=== PATIENT | male | born 1935 | race Caucasian/White ===

== ENCOUNTER 2019-11-30 11:24 | Outpatient (REF) | payer MEDICARE, MEDICAID, SELFPAY | END 2019-11-30 11:25 | disposition home or self-care (01) | LOC: HO.HSH3W 11:24 | PROVIDERS: Visit Provider Internal Medicine | DX: Z20.828 Contact with and (suspected) exposure to other viral communicable diseases (principal) | CPT/HCPCS: 87635 ==

== ENCOUNTER 2019-12-19 07:25 | Outpatient (REF) | payer MEDICARE, SELFPAY | END 2019-12-19 07:26 | disposition home or self-care (01) | LOC: HO.HSH4W 07:25 | PROVIDERS: Visit Provider Internal Medicine | DX: I10 Essential (primary) hypertension (principal) | CPT/HCPCS: 82306 ==

== ENCOUNTER → 2020-05-12 13:01 | Outpatient (BNVA) | payer MEDICARE, SELFPAY | PROVIDERS: PCP Internal Medicine; Visit Provider Internal Medicine | DX: Z45.018 Encounter for adjustment and management of other part of cardiac pacemaker (principal); I48.0 Paroxysmal atrial fibrillation; I10 Essential (primary) hypertension; I45.9 Conduction disorder, unspecified | CPT/HCPCS: 99212 ==

== ENCOUNTER 2020-05-15 05:42 | Outpatient (REF) | payer MEDICARE, SELFPAY ==
[2020-05-15 08:17] LABS: MANUAL DIFF FLAG NO
[2020-05-15 08:35] LABS: Basophils Absolute Auto 0.1 X10*3/uL (0.0-0.2); Basophils Percent Auto 1.2 % (0-2); Eosinophils Absolute Auto 0.4 X10*3/uL (0.0-0.4); Eosinophils Percent Auto 5.9 % (0-4); Hematocrit 40.8 % (42-52); Hemoglobin 13.7 g/dl (14.0-18.0); Imm Gran Abs Auto 0.02 X10*3/uL (0.00-0.03); Imm Gran Pct Auto 0.3 % (0.0-0.4); Lymphocytes Absolute Auto 1.7 X10*3/uL (1.2-4.9); Lymphocytes Percent Auto 28.6 % (20-40); Mean Corpuscular HGB Conc 33.6 g/dl (31.0-36.0); Mean Corpuscular Hemoglobin 31.4 pg (27.0-33.0); Mean Corpuscular Volume 93.4 fL (80-98); Mean Platelet Volume 9.2 fL (9.4-12.4); Monocytes Absolute Auto 0.8 X10*3/uL (0.1-1.2); Platelet Count 228 X10*3/uL (160-400); Red Blood Count 4.37 X10*6/uL (4.60-5.80)
[2020-05-15 09:00] LABS: Alanine Aminotransferase 17 U/L (0-40); Albumin Level 3.7 g/dL (3.5-5.0); Alkaline Phosphatase 72 U/L (39-117); Anion Gap 10 (12-20); Aspartate Amino Transferase 18 U/L (5-37); Bilirubin Total 0.7 mg/dL (0.0-1.0); Blood Urea Nitrogen 13 mg/dL (9-16); Calcium 8.4 mg/dL (8.4-10.2); Carbon Dioxide 27 mmol/L (22-29); Chloride 107 mmol/L (96-108); Estimated Glomerular Filt Rate > 60; Glucose Fasting 93 mg/dL (60-99); Sodium 140 mmol/L (135-145); Total Protein 6.2 g/dL (6.5-8.0)
== END 2020-05-15 05:43 | disposition home or self-care (01) ==
LOC: HO.HSH3N 05:42
PROVIDERS: Visit Provider Internal Medicine
DX: F03.90 Unspecified dementia, unspecified severity, without behavioral disturbance, psychotic disturbance, mood disturbance, and anxiety (principal); I10 Essential (primary) hypertension
CPT/HCPCS: 36415; 80053; 85025

== ENCOUNTER 2020-05-29 07:49 | Outpatient (REF) | payer MEDICARE, SELFPAY ==
[2020-05-29 10:03] LABS: Cholesterol 196 mg/dL; HDL Cholesterol 32 mg/dL; LDL Cholesterol Calculated 135 mg/dl; Triglycerides 147 mg/dL
== END 2020-05-29 07:50 | disposition home or self-care (01) ==
LOC: HO.SHU3 07:49
PROVIDERS: Visit Provider Internal Medicine
DX: F03.90 Unspecified dementia, unspecified severity, without behavioral disturbance, psychotic disturbance, mood disturbance, and anxiety (principal); E78.00 Pure hypercholesterolemia, unspecified; I10 Essential (primary) hypertension
CPT/HCPCS: 36415; 80061

== ENCOUNTER 2020-07-31 05:07 | Outpatient (REF) | payer MEDICARE, SELFPAY ==
[2020-07-31 06:35] LABS: Vitamin D 25-OH Total 39.2 ng/mL (>30)
== END 2020-07-31 05:08 | disposition home or self-care (01) ==
LOC: HO.HSH3N 05:07
PROVIDERS: Visit Provider Nurse Practitioner Acute Care
DX: E55.9 Vitamin D deficiency, unspecified (principal)
CPT/HCPCS: 36415; 82306

== ENCOUNTER 2020-08-21 13:29 | Outpatient (REF) | payer MEDICARE, SELFPAY ==
[2020-08-23 12:10] LABS: Scabies Exam NEGATIVE
== END 2020-08-21 13:30 | disposition home or self-care (01) ==
LOC: HO.HSH3N 13:29
PROVIDERS: Visit Provider Nurse Practitioner Acute Care
DX: R21 Rash and other nonspecific skin eruption (principal)
CPT/HCPCS: 87220

== ENCOUNTER 2020-11-17 06:45 | Outpatient (REF) | payer MEDICARE, SELFPAY ==
[2020-11-17 08:04] LABS: Anion Gap 10 (12-20); Blood Urea Nitrogen 12 mg/dL (9-16); Carbon Dioxide 27 mmol/L (22-29); Chloride 108 mmol/L (96-108); Estimated Glomerular Filt Rate > 60; Glucose Fasting 97 mg/dL (60-99); Potassium 4.2 mmol/L (3.3-5.1); Sodium 141 mmol/L (135-145)
== END 2020-11-17 06:46 | disposition home or self-care (01) ==
LOC: HO.HSH3N 06:45
PROVIDERS: Visit Provider Nurse Practitioner Acute Care
DX: I48.91 Unspecified atrial fibrillation (principal)
CPT/HCPCS: 36415; 80048

== ENCOUNTER 2020-11-27 07:06 | Outpatient (REF) | payer MEDICARE, SELFPAY ==
[2020-11-27 08:03] LABS: MANUAL DIFF FLAG NO
[2020-11-27 08:08] LABS: Basophils Absolute Auto 0.1 X10*3/uL (0.0-0.2); Basophils Percent Auto 1.3 % (0-2); Eosinophils Absolute Auto 0.4 X10*3/uL (0.0-0.4); Eosinophils Percent Auto 6.8 % (0-4); Hematocrit 39.3 % (42-52); Imm Gran Abs Auto 0.02 X10*3/uL (0.00-0.03); Imm Gran Pct Auto 0.4 % (0.0-0.4); Lymphocytes Absolute Auto 1.7 X10*3/uL (1.2-4.9); Lymphocytes Percent Auto 31.2 % (20-40); Mean Corpuscular HGB Conc 33.1 g/dl (31.0-36.0); Mean Corpuscular Hemoglobin 30.6 pg (27.0-33.0); Mean Corpuscular Volume 92.5 fL (80-98); Mean Platelet Volume 9.1 fL (9.4-12.4); Monocytes Absolute Auto 0.6 X10*3/uL (0.1-1.2); Monocytes Percent Auto 10.8 % (2-11); Neutrophils Absolute Auto 2.7 X10*3/uL (2.0-8.3); Neutrophils Percent Auto 49.5 % (45-73); Platelet Count 220 X10*3/uL (160-400); Red Blood Count 4.25 X10*6/uL (4.60-5.80); Red Cell Distribution Width 12.7 % (11.0-16.0); White Blood Count 5.5 X10*3/uL (4.8-10.8)
[2020-11-27 08:17] LABS: Alanine Aminotransferase 15 U/L (0-40); Albumin Level 3.6 g/dL (3.5-5.0); Alkaline Phosphatase 76 U/L (39-117); Anion Gap 10 (12-20); Aspartate Amino Transferase 17 U/L (5-37); Bilirubin Total 0.7 mg/dL (0.0-1.0); Blood Urea Nitrogen 13 mg/dL (9-16); Calcium 8.8 mg/dL (8.4-10.2); Carbon Dioxide 25 mmol/L (22-29); Chloride 107 mmol/L (96-108); Cholesterol 175 mg/dL; Estimated Glomerular Filt Rate > 60; Glucose Fasting 91 mg/dL (60-99); HDL Cholesterol 27 mg/dL; Iron 80 mcg/dL (45-160); LDL Cholesterol Calculated 126 mg/dl; Percent Iron Saturation 27 % (15-50); Potassium 4.1 mmol/L (3.3-5.1); Sodium 138 mmol/L (135-145); Total Iron Binding Capacity 296 mcg/dL (228-428); Total Protein 6.2 g/dL (6.5-8.0); Triglycerides 111 mg/dL; Unsaturated Iron Binding 216 ug/dL
[2020-11-27 08:23] LABS: Estimated Average Glucose 117 mg/dL; Hemoglobin A1c % 5.7 %
[2020-11-27 08:38] LABS: Thyroid Stimulating Hormone 4.06 uIU/mL (0.32-4.0); Vitamin D 25-OH Total 38.6 ng/mL (>30)
[2020-11-27 09:09] LABS: Folate 5.4 ng/mL (> or = 4.0); Vitamin B12 434 pg/mL (200-900)
== END 2020-11-27 07:07 | disposition home or self-care (01) ==
LOC: HO.HSH3N 07:06
PROVIDERS: Visit Provider Nurse Practitioner Acute Care
DX: D64.9 Anemia, unspecified (principal); I48.91 Unspecified atrial fibrillation; F03.90 Unspecified dementia, unspecified severity, without behavioral disturbance, psychotic disturbance, mood disturbance, and anxiety
CPT/HCPCS: 36415; 80053; 80061; 82306; 82607; 82746; 83036; 83540; 84443; 85025

== ENCOUNTER 2020-12-11 05:32 | Outpatient (REF) | payer MEDICARE, SELFPAY ==
[2020-12-11 07:55] LABS: Alanine Aminotransferase 14 U/L (0-40); Albumin Level 3.5 g/dL (3.5-5.0); Alkaline Phosphatase 74 U/L (39-117); Anion Gap 10 (12-20); Aspartate Amino Transferase 18 U/L (5-37); Bilirubin Total 0.5 mg/dL (0.0-1.0); Blood Urea Nitrogen 12 mg/dL (9-16); Calcium 8.5 mg/dL (8.4-10.2); Carbon Dioxide 26 mmol/L (22-29); Chloride 107 mmol/L (96-108); Estimated Glomerular Filt Rate > 60; Glucose Fasting 96 mg/dL (60-99); Sodium 139 mmol/L (135-145); Total Protein 6.1 g/dL (6.5-8.0)
== END 2020-12-11 05:33 | disposition home or self-care (01) ==
LOC: HO.HSH3N 05:32
PROVIDERS: Visit Provider Nurse Practitioner Acute Care
DX: I10 Essential (primary) hypertension (principal); I47.1 Supraventricular tachycardia
CPT/HCPCS: 36415; 80053; 83735

== ENCOUNTER → 2021-05-11 12:24 | Outpatient (BNVA) | payer MEDICARE, SELFPAY | PROVIDERS: PCP Internal Medicine Interventional Cardiology; Visit Provider Internal Medicine | DX: Z45.018 Encounter for adjustment and management of other part of cardiac pacemaker (principal); I48.0 Paroxysmal atrial fibrillation; I45.9 Conduction disorder, unspecified; I47.2 Ventricular tachycardia; I35.0 Nonrheumatic aortic (valve) stenosis; I10 Essential (primary) hypertension | CPT/HCPCS: 93005; 99212 ==

== ENCOUNTER 2021-05-14 05:45 | Outpatient (REF) | payer MEDICARE, SELFPAY ==
[2021-05-14 07:59] LABS: MANUAL DIFF FLAG NO
[2021-05-14 08:05] LABS: Basophils Absolute Auto 0.1 X10*3/uL (0.0-0.2); Basophils Percent Auto 1.1 % (0-2); Eosinophils Absolute Auto 0.3 X10*3/uL (0.0-0.4); Hematocrit 40.6 % (42.0-52.0); Imm Gran Abs Auto 0.02 X10*3/uL (0.00-0.03); Imm Gran Pct Auto 0.4 % (0.0-0.4); Lymphocytes Absolute Auto 1.6 X10*3/uL (1.2-4.9); Lymphocytes Percent Auto 28.2 % (20-40); Mean Corpuscular HGB Conc 34.5 g/dl (31.0-36.0); Mean Corpuscular Hemoglobin 31.8 pg (27.0-33.0); Mean Corpuscular Volume 92.3 fL (80.0-98.0); Mean Platelet Volume 8.8 fL (9.4-12.4); Monocytes Absolute Auto 0.6 X10*3/uL (0.1-1.2); Monocytes Percent Auto 11.3 % (2-11); Platelet Count 197 X10*3/uL (160-400); Red Cell Distribution Width 12.9 % (11.0-16.0); White Blood Count 5.6 X10*3/uL (4.8-10.8)
[2021-05-14 08:34] LABS: Alanine Aminotransferase 17 U/L (0-40); Albumin Level 3.5 g/dL (3.5-5.0); Alkaline Phosphatase 69 U/L (39-117); Anion Gap 10 (12-20); Aspartate Amino Transferase 17 U/L (5-37); Bilirubin Total 0.7 mg/dL (0.0-1.0); Blood Urea Nitrogen 12 mg/dL (9-16); Calcium 8.9 mg/dL (8.4-10.2); Carbon Dioxide 26 mmol/L (22-29); Chloride 107 mmol/L (96-108); Estimated Glomerular Filt Rate > 60; Glucose Fasting 100 mg/dL (60-99); Potassium 3.9 mmol/L (3.3-5.1); Sodium 139 mmol/L (135-145)
[2021-05-14 08:55] LABS: Thyroid Stimulating Hormone 4.61 uIU/mL (0.32-4.0); Vitamin D 25-OH Total 36.4 ng/mL (>30)
[2021-05-14 09:14] LABS: Folate 3.2 ng/mL (> or = 4.0); Vitamin B12 387 pg/mL (200-900)
== END 2021-05-14 05:46 | disposition home or self-care (01) ==
LOC: HO.HSH3N 05:45
PROVIDERS: Visit Provider Nurse Practitioner Acute Care
DX: E03.9 Hypothyroidism, unspecified (principal); I48.91 Unspecified atrial fibrillation; F03.90 Unspecified dementia, unspecified severity, without behavioral disturbance, psychotic disturbance, mood disturbance, and anxiety
CPT/HCPCS: 36415; 80053; 82306; 82607; 82746; 84443; 85025

== ENCOUNTER 2021-05-18 05:45 | Outpatient (REF) | payer MEDICARE, SELFPAY ==
[2021-05-18 07:41] LABS: Anion Gap 10 (12-20); Blood Urea Nitrogen 15 mg/dL (9-16); Calcium 8.9 mg/dL (8.4-10.2); Carbon Dioxide 26 mmol/L (22-29); Chloride 105 mmol/L (96-108); Estimated Glomerular Filt Rate > 60; Glucose Fasting 122 mg/dL (60-99); Potassium 3.9 mmol/L (3.3-5.1); Sodium 137 mmol/L (135-145)
== END 2021-05-18 05:46 | disposition home or self-care (01) ==
LOC: HO.HSH3N 05:45
PROVIDERS: Visit Provider Nurse Practitioner Acute Care
DX: I48.91 Unspecified atrial fibrillation (principal)
CPT/HCPCS: 36415; 80048

== ENCOUNTER 2021-06-12 06:17 | Outpatient (REF) | payer MEDICARE, SELFPAY ==
[2021-06-12 08:25] LABS: Thyroid Stimulating Hormone 4.52 uIU/mL (0.32-4.0)
[2021-06-12 09:06] LABS: Folate 17.4 ng/mL (> or = 4.0)
== END 2021-06-12 06:18 | disposition home or self-care (01) ==
LOC: HO.HSH3N 06:17
PROVIDERS: Visit Provider Nurse Practitioner Acute Care
DX: E03.9 Hypothyroidism, unspecified (principal); D52.9 Folate deficiency anemia, unspecified
CPT/HCPCS: 36415; 82746; 84443

== ENCOUNTER → 2021-06-26 09:57 | Outpatient (REF) | payer MEDICARE, SELFPAY ==
--- NOTE | 2021-06-26 10:05 | CA_ITS ---
Transthoracic Echocardiogram Amended Patient (Last, First, Middle): Demario Chadwick A Gender: Male Date of : 1935 Age: 85 Procedure Date: 06/26/2021 Procedure Type: Transthoracic Echocardiogram Location: OP Height: 177.8 cm Weight: 87.54 kg BSA: 2.06 m2 Heart Rate: bpm BP: 148 / 84 mmHg Remedy Developer: MORALES Referring MD: Colt Baxter MD Cafeteria Supervisor: Ramón Hill MD Symptoms: I35.0 - Nonrheumatic aortic (valve) stenosis Study Quality: Adequate ECG Rhythm: Ventriculary paced rhythm Conclusions: - 1. [id number] LV systolic dysfunction with LVEF of 40 45% with impaired relaxation filling pattern 2. Mild aortic stenosis and regurgitation 3. Normal RV systolic pressure 4. No gross pericardial effusion Findings Left Ventricle Normal left ventricular cavity size. There is mildly increased left ventricular wall thickness. The left ventricular systolic function is mild to moderately decreased. The visually estimated ejection fraction is between 40-45%. There is mild global hypokinesis. There is paradoxical septal motion consistent with a right ventricular pacemaker. Spectral Doppler is indicative of an impaired relaxation filling pattern. E/E prime ratio is between 8 and 15 consistent with indeterminate filling pressures. Right Ventricle Normal right ventricular cavity size and systolic function. There is a pacemaker wire seen in the right ventricle. Atria The left atrium is likely dilated. There is no evidence of interatrial shunt. The right atrium is normal in size. A pacemaker wire is identified in the right atrium. Aortic Valve There is mild calcification of the aortic valve. There is mild thickening of the aortic valve. There is mild aortic valve stenosis. The aortic valve area is 1.83 cm2. There is mild aortic valve regurgitation. Mitral Valve There is mild anterior and posterior mitral leaflet thickening. There is mild mitral annular calcification. There is trace mitral valve regurgitation. There is no mitral valve stenosis. Pulmonic Valve The pulmonic valve was not well visualized. There is trace pulmonic valve regurgitation. Tricuspid Valve Normal tricuspid valve structure. There is mild tricuspid valve regurgitation. The right ventricular systolic pressure is normal. The right ventricular systolic pressure is 25 mmHg. Normal right atrial pressure. There is no evidence of pulmonary hypertension. Great Vessels The pulmonary artery was not well visualized. There is mild dilatation of the ascending aorta measuring 3.80 cm. Venous The inferior vena cava is normal in size and collapses greater than 50% with inspiration. Pericardium/Pleural There is no evidence of pericardial effusion. Prior Study Comparison Changes noted compared to prior study dated: 04/27/2019. LV systolic function is reduced. Mild aortic stenosis is present Measurements 2D Linear Measurements IVSd: 1.30 0.6-0.9/0.6-1.0 cm LVIDd: 5.27 3.9-5.3/4.2-5.9 cm LVIDd Index: 2.56 2.4-3.2/2.2-3.1 cm/m2 LVIDs: 4.27 2.0-3.6 cm LVPWd: 1.11 0.7-1.1 cm LA Diam: 3.90 2.7-3.8/3.0-4.0 cm LAIDs Index: 1.89 1.5-2.3 cm/m2 LV Mass: 318.89 67-162/88-224 g LV Mass Index: 154.80 43-95/49-115 g/m2 LVOT Diam: 2.00 3.0+(-)1.3 cm 2D Volumes LA Vol: 15.00 2D Systolic Function EF 4C: 44.20 >55% EF 2C: 38.80 >55% EF BiP: 41.10 >55% Mitral Valve MV Pk E: 0.48 MV PK A: 1.04 MV Decel Time: 180.00 E/A: 0.50 E'Lateral: 2.72 E'Medial: 3.37 E/E' Med: 14.40 E/E' Lat: 17.80 PHT: 53.00 MVA PHT: 4.15 Decel Maverick: 2.69 Aortic Valve AoV Pk Kiel: 1.56 AoV Mn Kiel: 1.03 AoV VTI: 0.29 AoV Pk Grad: 10.00 Aov Mn Grad: 5.00 GENEVIEVE Cont.VTI: 1.83 AI Pk Kiel: 3.81 AI Maverick: 1.68 LVOT LVOT Pk Kiel: 0.92 LVOT Mn Kiel: 0.61 LVOT VTI: 0.17 LVOT Pk Grad: 3.00 LVOT Mn Grad: 2.00 LVOT Diam: 2.00 LVOT Area: 3.14 Diastolic Function MV Pk E: 0.48 MV Pk A: 1.04 E/A: 0.50 E'Medial: 3.37 E/E' Med: 14.40 E' Laterial: 2.72 E/E' Lat: 17.80 Right Ventricle TAPSE (mm): 24.40 TVS' Kiel: 14.30 Tricuspid Valve TR Pk Kiel: 2.36 TR Pk Grad: 22.00 RA Press: 3.00 RVSP: 25.00 Great Vessels Aorta Sinus of Valsalva: 3.25 2.0-3.[address] Ridge: 3.09 1.7-3.4 cm Ao Asc: 3.80 2.1-3.4 cm Pulmonary Veins Pulm Vein S/D 2.20 Pulmonary Valve PV Pk Kiel: 0.96 Peak PV Grad: 4.00 Updated in Other Vendor System with Status of Final Ramón Hill MD electronically signed on 06/27/2021 2:39:42 PM with status of Final
== END ==
LOC: HO.CARD 09:57
PROVIDERS: PCP Nurse Practitioner Acute Care; Visit Provider Internal Medicine
DX: I35.0 Nonrheumatic aortic (valve) stenosis (principal)
CPT/HCPCS: 93306

== ENCOUNTER → 2021-07-09 09:22 | Outpatient (REF) | payer MEDICARE, SELFPAY ==
--- NOTE | ~2021-07-09 | NM_ITS ---
Lexiscan Myocardial perfusion study Indication: Coronary artery disease, assess for ischemia Technique: The patient was brought in for a Lexiscan perfusion study on 07/09/2021 and was injected 0.4 mg of Lexiscan intravenously. Within a minute of this injection 30 mCi of sestamibi was given intravenously. Images were obtained using the SPECT gamma camera interlaced with the gating device. Images were obtained in supine position. Resting perfusion study was performed on 07/15/2021. Patient was administered 30 mCi of sestamibi intravenously at rest. Images were then obtained in supine position. Total DLP 94mGy-cm. Images were processed with the software and compared side to side in short axis, horizontal long axis and vertical long axis views. Findings: Raw acquisition was reviewed. The stress perfusion study showed diminished tracer uptake in the basal inferoseptal wall. No significant change with CT attenuation correction. The gated study shows diminished LV systolic function with calculated LVEF of 42%. LV cavity is normal in size. The gated study shows globally diminished wall thickening and contraction of segments. Resting study shows diminished tracer uptake in the basal inferior septum. Gating at rest reveals globally diminished wall thickening and LVEF 45%. The findings are consistent with fixed basal inferoseptal defect. No reversible defects. NM/NM cardiolite stress test Impression: 1. Myocardial perfusion imaging study shows no evidence of any ischemia. Fixed basal inferoseptal defect that could be artifactual or could be from prior infarct. 2. Gated LVEF is 42% during stress and 45% during rest. 3. Transient ischemic dilatation not present. EKG component of the test reported separately.
--- NOTE | 2021-07-09 09:27 | CA_ITS ---
Acquisition Time: 2021-07-09 09:27:25 Total Exercise Time: 00:02:00 Test Indications: VENTR. TACHYCARDIA Medications: Protocol: LEXISCAN Max HR: 080 BPM 58% of Pred: 136 BPM Max BP: 112/060 mmHG Max Work Load: 1.0 METS Pharmacological stress test with Lexiscan injection, while sitting, without anginal symptoms, with isolated PVC, with normotensive response to injection, with nondiagnostic EKG for ischemia. Nuclear images pending. Test reviewed with Dr Loera. Referred By: Colt Baxter Overread By: AMAN WELLINGTON
== END ==
LOC: HO.CARD 09:22
PROVIDERS: Visit Provider Internal Medicine
DX: I47.2 Ventricular tachycardia (principal)
CPT/HCPCS: 78452; 93017; A9500; J0280; J2785

== ENCOUNTER 2021-07-21 05:37 | Outpatient (REF) | payer MEDICARE, SELFPAY ==
[2021-07-21 07:18] LABS: Alanine Aminotransferase 20 U/L (0-40); Albumin Level 3.5 g/dL (3.5-5.0); Alkaline Phosphatase 82 U/L (39-117); Aspartate Amino Transferase 19 U/L (5-37); Bilirubin Direct 0.2 mg/dL (0.0-0.5); Bilirubin Total 0.6 mg/dL (0.0-1.0); Cholesterol 173 mg/dL; HDL Cholesterol 29 mg/dL; LDL Cholesterol Calculated 120 mg/dl; Triglycerides 122 mg/dL
== END 2021-07-21 05:38 | disposition home or self-care (01) ==
LOC: HO.HSH3N 05:37
PROVIDERS: Visit Provider Nurse Practitioner
DX: I10 Essential (primary) hypertension (principal)
CPT/HCPCS: 36415; 80061; 80076

== ENCOUNTER 2021-08-18 17:21 | Emergency (ER) | payer MEDICARE, SELFPAY ==
--- NOTE | ~2021-08-18 | CT_ITS ---
EXAMINATION: CT HEAD WITHOUT CONTRAST CLINICAL INFORMATION: Confusion. On Eliquis COMPARISON: None TECHNIQUE: Contiguous axial imaging was performed from the skull base to vertex without intravenous administration of contrast. Coronal and sagittal reformatted images are performed at CT scanner This CT examination was performed using dose optimization techniques as appropriate, variously including the following: *Automated exposure control *Adjustment of mA and/or kV according to patient size (this includes techniques or standardized protocols for targeted exams where dose is matched to indication/reason for exam; i.e. extremities or head) *Use of iterative reconstruction technique DLP: 716 mGy-cm FINDINGS: There is a large left-sided holohemispheric subdural collection. This has mixed attenuation. It is nearly isointense with bands of hyperintensity of acute hemorrhage. This is likely an acute on a subacute or chronic subdural hematoma therefore. This measures about 1.7 cm in maximal diameter coronal image 114/211 series 7. This does cause mass effect. There is about 8 mm midline shift from left to right. No intraparenchymal or intraventricular hemorrhage. No evidence of brain herniation. No hydrocephalus. The osseous structures and soft tissues are normal. Retention cyst inferior left maxillary anterior left sphenoid sinus. Mastoid air cells are normally aerated. CT/CT head/brain wo con IMPRESSION: Left-sided holohemispheric subdural hematoma. This critical result was discussed with Dr. King on 08/18/2021, 6:52 PM and it was ascertained that the content and urgency of the report was understood at the time of direct communication.
--- NOTE | ~2021-08-18 | XR_ITS ---
EXAMINATION: XR CHEST CLINICAL INFORMATION: Weakness COMPARISON: 04/29/2019 TECHNIQUE: Frontal view of the chest was obtained in the lordotic position. FINDINGS: The heart is mildly enlarged. A left chest wall bipolar pacemaker is present. No acute infiltrates, effusions or lung masses are seen. Old healed right rib fractures are again noted. XR/XR chest 1V IMPRESSION: No acute intrathoracic disease.
[2021-08-18 17:46] VITALS: BP 132/68; BP 138/53; PULSE 68; PULSE 69; RESP 18; TEMP 36.4; O2SAT 95; O2SAT 96; BMI 26.7
--- NOTE | 2021-08-18 17:54 | ECG_ITS ---
Test Reason : altered mental Blood Pressure : / mmHG Vent. Rate : 071 BPM Atrial Rate : 071 BPM P-R Int : 192 ms QRS Dur : 178 ms QT Int : 454 ms P-R-T Axes : 023 -51 099 degrees QTc Int : 493 ms AV dual-paced rhythm Abnormal ECG When compared with ECG of 27-APR-2019 09:39, Electronic ventricular pacemaker has replaced Sinus rhythm Referred By: Analilia King Electronically Signed By:Scot Loera
--- NOTE | 2021-08-18 17:56 | ED_ITS ---
HPI - Altered Mental Status General Chief Complaint: Altered Mental Status Stated Complaint: speech problems Time Seen by Provider: 08/18/21 17:56 Source: patient and old records reviewed Mode of arrival: EMS Limitations: no limitations History of Present Illness HPI narrative: 85 yo male with hx of dementia, PAF on eliquis, HTN, heart block s/p PPM [facility] with 1 day of confusion, word finding difficulties. He has no complaints at this time but states maybe he feels a little confused. No tra sussy reported, no falls, no fevers. The patient is aware that he is not himself per his reports. MD complaint: confusion Onset (ago): day(s) (1) Timing confirmed by: caregiver Severity: mild Consistency of symptoms: waxing and waning Context: other (dementia) Associated symptoms: malaise Related Data Home Medications Medication Instructions Recorded Confirmed apixaban 5 mg tablet 5 mg PO BID 05/12/20 05/11/21 cholecalciferol (vitamin D3) 50 50 mcg PO DAILY 05/12/20 05/11/21 mcg (2,000 unit) capsule donepezil 10 mg tablet 10 mg PO DAILY 05/12/20 05/11/21 metoprolol succinate 50 mg 50 mg PO DAILY 05/11/21 05/11/21 tablet,extended release 24 hr Previous Rx's Medication Instructions Recorded lisinopril 10 mg tablet 10 mg PO DAILY 90 days #90 tabs 12/09/20 rosuvastatin 10 mg tablet 10 mg PO DAILY 90 days #90 tabs 07/20/21 Allergies Allergy/AdvReac Type Severity Reaction Status Date / Time No Known Allergies Allergy Verified 05/11/21 13:11 [No Known Allergies*] Review of Systems Review of Systems: Constitutional : No Fever, No Chills, No Fatigue, pos Malaise ENT/Mouth : No sore throat, No Rhinorrhea Eyes: No Eye Pain, No Swelling, No Redness Cardiovascular : No Chest Pain, No SOB, No Dyspnea on Exertion, No Orthopnea, No Edema, No Palpitations Respiratory : No Cough, No Sputum, No Wheezing Gastrointestinal : No Nausea, No Vomiting, No Diarrhea, No Constipation, No ab dominal Pain, No Hematochezia, No Melena Genitourinary : No Dysuria, No Urinary Frequency, No Hematuria, Musculoskeletal : No joint pain, No Myalgias, No Joint Swelling Skin : No Skin Lesions, No rash Neuro : pos Weakness, No Numbness, No Dizziness, No Headache, pos confusion Psych : No Anxiety/Panic, No Depression Heme/Lymph: No Bruising, No Bleeding,No Lymphadenopathy Endocrine : No Polyuria, No Polydipsia All other systems reviewed and are negative [facility] Past Medical History Attestation statement: The following information was validated with the patient. Medical History Essential hypertension Heart block Normally functioning cardiac pacemaker present PAF (paroxysmal atrial fibrillation) Surgical History History of permanent cardiac pacemaker placement (~04/2019) Family History Family History Father No problems noted. Mother No problems noted. Social History Social History Patient Tobacco Use Status: Former Tobacco user Advance Directives: No Advance Directives Information Provided: No Physical Exam ED Vital Signs: Vital Signs - 24 hr 08/18/21 17:46 08/18/21 19:29 08/18/21 20:17 Temperature 97.6 F Pulse Rate 68 79 79 Respiratory Rate 18 16 13 Blood Pressure 138/53 L 134/65 129/63 Pulse Oximetry 95 97 96 Oxygen Delivery Method Room Air Room Air Room Air BMI result Body Mass Index 26.7 Appearance: Alert. Oriented X3. No acute distress. GCS 15 Eyes: R pupil 2mm L pupil 3mm reactive bilaterally ENT: Pharynx normal. Atraumatic Neck: Normal inspection. Neck supple. CVS: Normal heart rate and rhythm. Pulses normal. Respiratory: No respiratory distress. Breath sounds normal. Abdomen: Soft and non-tender. Skin: Skin warm and dry. Normal skin color. Normal skin turgor. Extremities: No lower extremity edema. Neuro: Oriented X 3. No motor deficit. No sensory deficit. Course Course Course Narrative: acute on subacute SDH with approx 7mm shift - [place] ask [place] [facility] [place] reported no signs of outward trauma [facility] transfer line reports that since no trauma was reported they are closed to external transfers. call to [facility] 631pm accepted to ED Dr. Servin via transfer line given size of SDH and shift with eliquis use I am going to give PCC - pharmacy aware sister notified of transfer 640pm still pending final read from radiology 644pm 650pm radiology report SDH acute on subacute midline 8mm. Delay in transfer due to weather - [facility] is not flying at this time. [facility], per RN grinding and spraying supervisor and ED director of category management we are not allowed to send RN on basic ambulance to get patient to [facility]. [place] can get the patient via ground crew at 850pm. 731pm GCS 15 patient remains intact at this time. There is a large left-sided holohemispheric subdural collection. This has mixed attenuation. It is nearly isointense with bands of hyperintensity of acute hemorrhage. This is likely an acute on a subacute or chronic subdural hematoma therefore. This measures about 1.7 cm in maximal diameter coronal image 114/211 series 7. This does cause mass effect. There is about 8 mm midline shift from left to right. No intraparenchymal or intraventricular hemorrhage. No evidence of brain herniation. No hydrocephalus. The osseous structures and soft tissues are normal. Retention cyst inferior left maxillary anterior left sphenoid sinus. Mastoid air cells are normally aerated. ? CT/CT head/brain wo con IMPRESSION: Left-sided holohemispheric subdural hematoma. ? This critical result was discussed with Dr. King on 08/18/2021, 6:52 PM and it was ascertained that the content and urgency of the report was understood at the time of direct communication. MDM - Altered Mental Status MDM Narrative Medical decision making narrative: 85 yo male with hx of dementia, PAF on eliquis, HTN, heart block s/p PPM [facility] with 1 day of confusion he is able to follows commands and answer all orientation questions - does have a hx of dementia. Will obtain labs, UA, CXR, CT head for ICH given DOAC use. Dispo per results and findings. Lab Data Result diagrams: 08/18/21 18:22 08/18/21 18:22 Labs: Lab Results 08/18/21 08/18/21 08/18/21 Range/Units 18:21 18:21 18:21 WBC (4.8-10.8) X10*3/uL RBC (4.60-5.80) X10*6/uL Hgb (14.0-18.0) g/dl Hct (42.0-52.0) % MCV (80.0-98.0) fL MCH (27.0-33.0) pg MCHC (31.0-36.0) g/dl RDW (11.0-16.0) % Plt Count (160-400) X10*3/uL MPV (9.4-12.4) fL Immature Gran % (Auto) (0.0-0.4) % Neut % (Auto) (45-73) % Lymph % (Auto) (20-40) % [place] % (Auto) (2-11) % Eos % (Auto) (0-4) % Baso % (Auto) (0-2) % Lymph # (Auto) (1.2-4.9) X10*3/uL [place] # (Auto) (0.1-1.2) X10*3/uL Eos # (Auto) (0.0-0.4) X10*3/uL Baso # (Auto) (0.0-0.2) X10*3/uL Abs Immat Gran (auto) (0.00-0.03) X10*3/uL Absolute Neuts (auto) (2.0-8.3) x10*3/uL Absolute Nucleated RBC (0.0-0.012) X10*3/uL Nucleated RBC % (auto) (0.0-0.2) /100WBC PT (10.0-13.1) SEC Whole Blood PT (11.1-13.5) sec INR (0.9-1.1) Whole Blood INR (0.9-1.1) Sodium (135-145) mmol/L Potassium (3.3-5.1) mmol/L Chloride (96-108) mmol/L Carbon Dioxide (22-29) mmol/L Anion Gap (12-20) BUN (9-16) mg/dL Creatinine (0.5-1.4) mg/dL Estim Creat Clear Calc Estimated GFR POC Glucose (60-115) mg/dL Random Glucose (60-115) mg/dL Lactic Acid 0.7 (0.5-2.0) mmol/L Calcium (8.4-10.2) mg/dL Magnesium (1.6-2.6) mg/dL Total Bilirubin (0.0-1.0) mg/dL Direct Bilirubin (0.0-0.5) mg/dL AST (5-37) U/L ALT (0-40) U/L Alkaline Phosphatase (39-117) U/L Ammonia 16 (13-55) umol/L Troponin I High Sens (<3.5-35.0) ng/L Total Protein (6.5-8.0) g/dL Albumin (3.5-5.0) g/dL Lipase (8-78) U/L COVID-19 (IBETH) Negative (Negative) COVID-19 Clin Com See Note 08/18/21 08/18/21 08/18/21 Range/Units 18:22 18:22 18:22 WBC 7.9 (4.8-10.8) X10*3/uL RBC 4.43 L (4.60-5.80) X10*6/uL Hgb 13.9 L (14.0-18.0) g/dl Hct 41.7 L (42.0-52.0) % MCV 94.1 (80.0-98.0) fL MCH 31.4 (27.0-33.0) pg MCHC 33.3 (31.0-36.0) g/dl RDW 12.8 (11.0-16.0) % Plt Count 227 (160-400) X10*3/uL MPV 8.7 L (9.4-12.4) fL Immature Gran % (Auto) 0.6 H (0.0-0.4) % Neut % (Auto) 57.9 (45-73) % Lymph % (Auto) 26.7 (20-40) % [place] % (Auto) 10.3 (2-11) % Eos % (Auto) 3.7 (0-4) % Baso % (Auto) 0.8 (0-2) % Lymph # (Auto) 2.1 (1.2-4.9) X10*3/uL [place] # (Auto) 0.8 (0.1-1.2) X10*3/uL Eos # (Auto) 0.3 (0.0-0.4) X10*3/uL Baso # (Auto) 0.1 (0.0-0.2) X10*3/uL Abs Immat Gran (auto) 0.05 H (0.00-0.03) X10*3/uL Absolute Neuts (auto) 4.6 (2.0-8.3) x10*3/uL Absolute Nucleated RBC 0.000 (0.0-0.012) X10*3/uL Nucleated RBC % (auto) 0.0 (0.0-0.2) /100WBC PT 15.2 H (10.0-13.1) SEC Whole Blood PT (11.1-13.5) sec INR 1.3 H (0.9-1.1) Whole Blood INR (0.9-1.1) Sodium 136 (135-145) mmol/L Potassium 5.4 H D (3.3-5.1) mmol/L Chloride 104 (96-108) mmol/L Carbon Dioxide 24 (22-29) mmol/L Anion Gap 13 (12-20) BUN 18 H (9-16) mg/dL Creatinine 0.87 (0.5-1.4) mg/dL Estim Creat Clear Calc 67.3 Estimated GFR > 60 POC Glucose (60-115) mg/dL Random Glucose 94 (60-115) mg/dL Lactic Acid (0.5-2.0) mmol/L Calcium 8.9 (8.4-10.2) mg/dL Magnesium 2.1 (1.6-2.6) mg/dL Total Bilirubin 0.7 (0.0-1.0) mg/dL Direct Bilirubin 0.2 (0.0-0.5) mg/dL AST 29 D (5-37) U/L ALT 20 (0-40) U/L Alkaline Phosphatase 95 (39-117) U/L Ammonia (13-55) umol/L Troponin I High Sens (<3.5-35.0) ng/L Total Protein 6.9 (6.5-8.0) g/dL Albumin 4.0 (3.5-5.0) g/dL Lipase 24 (8-78) U/L COVID-19 (IBETH) (Negative) COVID-19 Clin [facility] 08/18/21 08/18/21 08/18/21 Range/Units 18:22 18:29 18:29 WBC (4.8-10.8) X10*3/uL RBC (4.60-5.80) X10*6/uL Hgb (14.0-18.0) g/dl Hct (42.0-52.0) % MCV (80.0-98.0) fL MCH (27.0-33.0) pg MCHC (31.0-36.0) g/dl RDW (11.0-16.0) % Plt Count (160-400) X10*3/uL MPV (9.4-12.4) fL Immature Gran % (Auto) (0.0-0.4) % Neut % (Auto) (45-73) % Lymph % (Auto) (20-40) % [place] % (Auto) (2-11) % Eos % (Auto) (0-4) % Baso % (Auto) (0-2) % Lymph # (Auto) (1.2-4.9) X10*3/uL [place] # (Auto) (0.1-1.2) X10*3/uL Eos # (Auto) (0.0-0.4) X10*3/uL Baso # (Auto) (0.0-0.2) X10*3/uL Abs Immat Gran (auto) (0.00-0.03) X10*3/uL Absolute Neuts (auto) (2.0-8.3) x10*3/uL Absolute Nucleated RBC (0.0-0.012) X10*3/uL Nucleated RBC % (auto) (0.0-0.2) /100WBC PT (10.0-13.1) SEC Whole Blood PT 13.8 H (11.1-13.5) sec INR (0.9-1.1) Whole Blood INR 1.2 H (0.9-1.1) Sodium (135-145) mmol/L Potassium (3.3-5.1) mmol/L Chloride (96-108) mmol/L Carbon Dioxide (22-29) mmol/L Anion Gap (12-20) BUN (9-16) mg/dL Creatinine (0.5-1.4) mg/dL Estim Creat Clear Calc Estimated GFR POC Glucose 86 (60-115) mg/dL Random Glucose (60-115) mg/dL Lactic Acid (0.5-2.0) mmol/L Calcium (8.4-10.2) mg/dL Magnesium (1.6-2.6) mg/dL Total Bilirubin (0.0-1.0) mg/dL Direct Bilirubin (0.0-0.5) mg/dL AST (5-37) U/L ALT (0-40) U/L Alkaline Phosphatase (39-117) U/L Ammonia (13-55) umol/L Troponin I High Sens 9.8 (<3.5-35.0) ng/L Total Protein (6.5-8.0) g/dL Albumin (3.5-5.0) g/dL Lipase (8-78) U/L COVID-19 (IBETH) (Negative) COVID-19 Clin Com ECG Data ECG #1: Attestation: I personally reviewed and interpreted this ECG as follows: ECG interpretation date: 08/18/21 Interpretation: Rate: 71 Rhythm: paced [place]: left , LVH Normal P waves. Normal KATHY. wide QRS complex. ST T wave : no EAST[place], inverted I and aVL qTC: normal prior studies: no acute ischemia paced The study has been interpreted contemporaneously by me. Critical Care Time Critical Care Time Critical Care Time: Yes Total Critical Care Time: 60 Attestation: review of records, transfer, I attest to this time spent taking care of the patient Discharge Plan Discharge Clinical Impression: Subdural hematoma, Acute confusion Patient Disposition: Xfer [facility] Transfer Details: [facility] Prescriptions: No Action lisinopril 10 mg tablet 10 mg PO DAILY 90 Days Qty: 90 3RF rosuvastatin 10 mg tablet 10 mg PO DAILY 90 Days Qty: 90 3RF apixaban 5 mg tablet 5 mg PO BID cholecalciferol (vitamin D3) 50 mcg (2,000 unit) capsule 50 mcg PO DAILY donepezil 10 mg tablet 10 mg PO DAILY metoprolol succinate 50 mg tablet extended release 24 hr 50 mg PO DAILY Interventions: Acute Care Transfer Worksheet (ED) Last Done: 08/18/21 19:41
[2021-08-18 18:35] LABS: Glucose, Whole Blood 86 mg/dL (60-115); Prothrombin Time Whole Bld POC 13.8 sec (11.1-13.5); ~PT, ~INR - Anti Coag Clinic 1.2 (0.9-1.1)
[2021-08-18 18:49] LABS: MANUAL DIFF FLAG NO
[2021-08-18 18:56] LABS: Ammonia 16 umol/L (13-55)
[2021-08-18 18:59] LABS: INTERNATIONAL NORM RATIO 1.3 (0.9-1.1); Prothrombin Time 15.2 SEC (10.0-13.1)
[2021-08-18 18:59] LABS: Lactic Acid 0.7 mmol/L (0.5-2.0)
[2021-08-18] MEDS: Hum Prothrombin Cplx(PCC)4Fact 2,000 UNIT in Container,Empty 0 ML 480 UNIT IV (19:02)
[2021-08-18 19:06] LABS: COVID-19 Test Negative (Negative)
[2021-08-18 19:09] LABS: Basophils Absolute Auto 0.1 X10*3/uL (0.0-0.2); Basophils Percent Auto 0.8 % (0-2); Eosinophils Absolute Auto 0.3 X10*3/uL (0.0-0.4); Eosinophils Percent Auto 3.7 % (0-4); Hematocrit 41.7 % (42.0-52.0); Hemoglobin 13.9 g/dl (14.0-18.0); Imm Gran Abs Auto 0.05 X10*3/uL (0.00-0.03); Imm Gran Pct Auto 0.6 % (0.0-0.4); Lymphocytes Absolute Auto 2.1 X10*3/uL (1.2-4.9); Lymphocytes Percent Auto 26.7 % (20-40); Mean Corpuscular HGB Conc 33.3 g/dl (31.0-36.0); Mean Corpuscular Hemoglobin 31.4 pg (27.0-33.0); Mean Corpuscular Volume 94.1 fL (80.0-98.0); Mean Platelet Volume 8.7 fL (9.4-12.4); Monocytes Absolute Auto 0.8 X10*3/uL (0.1-1.2); Monocytes Percent Auto 10.3 % (2-11); Neutrophils Absolute Auto 4.6 x10*3/uL (2.0-8.3); Neutrophils Percent Auto 57.9 % (45-73); Platelet Count 227 X10*3/uL (160-400); Red Blood Count 4.43 X10*6/uL (4.60-5.80); Red Cell Distribution Width 12.8 % (11.0-16.0); Troponin-I High Sensitivity 9.8 ng/L (<3.5-35.0); White Blood Count 7.9 X10*3/uL (4.8-10.8)
[2021-08-18 19:14] LABS: Alanine Aminotransferase 20 U/L (0-40); Alkaline Phosphatase 95 U/L (39-117); Anion Gap 13 (12-20); Aspartate Amino Transferase 29 U/L (5-37); Bilirubin Direct 0.2 mg/dL (0.0-0.5); Bilirubin Total 0.7 mg/dL (0.0-1.0); Blood Urea Nitrogen 18 mg/dL (9-16); Calcium 8.9 mg/dL (8.4-10.2); Carbon Dioxide 24 mmol/L (22-29); Chloride 104 mmol/L (96-108); Creatinine Clr Calc Pharmacy 67.3; Estimated Glomerular Filt Rate > 60; Glucose Random 94 mg/dL (60-115); Lipase 24 U/L (8-78); Magnesium 2.1 mg/dL (1.6-2.6); Potassium 5.4 mmol/L (3.3-5.1); Sodium 136 mmol/L (135-145); Total Protein 6.9 g/dL (6.5-8.0)
--- NOTE | 2021-08-18 19:20 | PC.NURSE ---
Report received from KAYLA Santiago. Patient awake and oriented X 2, calm and cooperative. VSS. Awaiting transport to [facility]. Will monitor closely.
[2021-08-18 19:29] VITALS: BP 134/65; PULSE 79; RESP 16; O2SAT 97
--- NOTE | 2021-08-18 19:58 | PC.NURSE ---
Argelia, Inside Sales Lead at [facility] updated via phone on patient status.
[2021-08-18 20:17] VITALS: BP 129/63; PULSE 79; RESP 13; O2SAT 96
[2021-08-18 20:47] VITALS: BP 146/72; PULSE 78; RESP 18; TEMP 37; O2SAT 94
--- NOTE | 2021-08-18 20:49 | PC.NURSE ---
[facility] ambulance transporting patient to [facility], VSS. [place] paperwork with patient.
== END 2021-08-18 20:55 | disposition short-term general hospital (02) ==
PROVIDERS: Emergency Provider Emergency Medicine; PCP Nurse Practitioner Acute Care
DX: I62.00 Nontraumatic subdural hemorrhage, unspecified (principal); R47.9 Unspecified speech disturbances; R53.1 Weakness; R40.2410 Glasgow coma scale score 13-15, unspecified time; I10 Essential (primary) hypertension; Z79.899 Other long term (current) drug therapy; Z20.822 Contact with and (suspected) exposure to COVID-19; Z87.891 Personal history of nicotine dependence
CPT/HCPCS: 36415; 70450; 71045; 80048; 80076; 82140; 82947; 83605; 83690; 83735; 84484; 85025; 85610; 87040; 87635; 93005; 96365; 99285; J7168

== ENCOUNTER 2021-08-28 14:16 | Outpatient (REF) | payer MEDICARE, SELFPAY ==
[2021-08-28 07:53] LABS: Anion Gap 9 (12-20); Carbon Dioxide 28 mmol/L (22-29); Chloride 104 mmol/L (96-108); Phosphorus 3.3 mg/dL (2.7-4.5); Potassium 4.7 mmol/L (3.3-5.1); Sodium 136 mmol/L (135-145)
== END 2021-08-28 14:17 | disposition home or self-care (01) ==
LOC: HO.HSH3N 14:16
PROVIDERS: Visit Provider Nurse Practitioner
DX: E87.8 Other disorders of electrolyte and fluid balance, not elsewhere classified (principal)
CPT/HCPCS: 36415; 80051; 84100

== ENCOUNTER 2021-09-14 05:49 | Outpatient (REF) | payer MEDICARE, SELFPAY ==
[2021-09-14 07:46] LABS: MANUAL DIFF FLAG NO
[2021-09-14 07:58] LABS: Basophils Percent Auto 0.6 % (0-2); Eosinophils Absolute Auto 0.3 X10*3/uL (0.0-0.4); Eosinophils Percent Auto 4.9 % (0-4); Hematocrit 37.7 % (42.0-52.0); Hemoglobin 12.5 g/dl (14.0-18.0); Imm Gran Abs Auto 0.02 X10*3/uL (0.00-0.03); Imm Gran Pct Auto 0.3 % (0.0-0.4); Lymphocytes Absolute Auto 1.8 X10*3/uL (1.2-4.9); Lymphocytes Percent Auto 27.6 % (20-40); Mean Corpuscular HGB Conc 33.2 g/dl (31.0-36.0); Mean Corpuscular Hemoglobin 31.2 pg (27.0-33.0); Mean Platelet Volume 8.9 fL (9.4-12.4); Monocytes Absolute Auto 0.8 X10*3/uL (0.1-1.2); Neutrophils Absolute Auto 3.5 x10*3/uL (2.0-8.3); Neutrophils Percent Auto 54.6 % (45-73); Platelet Count 231 X10*3/uL (160-400); Red Blood Count 4.01 X10*6/uL (4.60-5.80); Red Cell Distribution Width 12.8 % (11.0-16.0); White Blood Count 6.3 X10*3/uL (4.8-10.8)
[2021-09-14 08:26] LABS: Alanine Aminotransferase 19 U/L (0-40); Albumin Level 3.6 g/dL (3.5-5.0); Alkaline Phosphatase 100 U/L (39-117); Anion Gap 13 (12-20); Aspartate Amino Transferase 20 U/L (5-37); Bilirubin Total 0.5 mg/dL (0.0-1.0); Blood Urea Nitrogen 13 mg/dL (9-16); Calcium 8.6 mg/dL (8.4-10.2); Carbon Dioxide 27 mmol/L (22-29); Chloride 106 mmol/L (96-108); Estimated Glomerular Filt Rate > 60; Glucose Fasting 90 mg/dL (60-99); Phosphorus 3.3 mg/dL (2.7-4.5); Potassium 4.5 mmol/L (3.3-5.1); Sodium 141 mmol/L (135-145); Total Protein 6.1 g/dL (6.5-8.0)
== END 2021-09-14 05:50 | disposition home or self-care (01) ==
LOC: HO.HSH3N 05:49
PROVIDERS: Visit Provider Nurse Practitioner Acute Care
DX: E87.8 Other disorders of electrolyte and fluid balance, not elsewhere classified (principal)
CPT/HCPCS: 36415; 80053; 84100; 85025

== ENCOUNTER 2021-09-22 09:11 | Outpatient (REF) | payer MEDICARE, SELFPAY ==
--- NOTE | ~2021-09-22 | CT_ITS ---
EXAMINATION: CT HEAD WITHOUT CONTRAST CLINICAL INFORMATION: Dementia. Atrial fibrillation. COMPARISON: Previous head CT scans most recent August 2021 TECHNIQUE: Contiguous axial imaging was performed from the skull base to vertex without intravenous administration of contrast. This CT examination was performed using dose optimization techniques as appropriate, variously including the following: *Automated exposure control *Adjustment of mA and/or kV according to patient size (this includes techniques or standardized protocols for targeted exams where dose is matched to indication/reason for exam; i.e. extremities or head) *Use of iterative reconstruction technique DLP: 776 mGy-cm FINDINGS: There is left subdural extra-axial fluid collection. This is heterogeneous in attenuation. This is primarily intermediate to low in attenuation. This has some linear areas of high attenuation suggestive of more acute hemorrhage. Largest areas measure 4 x 20 mm adjacent to the left frontal lobe axial image 14 and 5 x 8 mm adjacent to the left frontal lobe axial image 18. No mass effect or midline shift is seen. This does not appear appreciably changed in size in size from most recent August 2021 exam. This measures maximum 1.7 cm in thickness. The previously identified extra-axial drain has been removed. There is no evidence other evidence of an extra-axial collection. There is no other evidence of intra-axial or extra-axial hemorrhage. The ventricles and extra-axial CSF spaces are slightly prominent. There is nonspecific periventricular white matter disease. There are small bilateral basal ganglia lacunar infarcts. There is evidence of atherosclerotic disease. There are postsurgical changes to the left parietal bone. There may be a polyp or cyst in the left maxillary sinus. CT/CT head/brain wo con IMPRESSION: Left subdural hematoma similar in size to 08/19/2021 exam. This is heterogeneous in attenuation but primarily low in attenuation. There are several small high attenuation areas suggestive of more acute hemorrhage, largest area measuring 0.4 x 2 cm adjacent to the left frontal bone. No mass or mass effect is seen. Mild nonspecific periventricular white matter disease and bilateral basal ganglia lacunar infarcts.
== END 2021-09-22 09:12 | disposition home or self-care (01) ==
LOC: HO.CT 09:11
PROVIDERS: Visit Provider Nurse Practitioner
DX: F03.90 Unspecified dementia, unspecified severity, without behavioral disturbance, psychotic disturbance, mood disturbance, and anxiety (principal); I48.0 Paroxysmal atrial fibrillation
CPT/HCPCS: 70450

== ENCOUNTER 2021-11-13 12:18 | Outpatient (REF) | payer MEDICARE, SELFPAY ==
--- NOTE | ~2021-11-13 | CT_ITS ---
EXAMINATION: CT HEAD WITHOUT CONTRAST CLINICAL INFORMATION: 86-year-old undergoing follow up for left-sided subdural hematoma. COMPARISON: None TECHNIQUE: Contiguous axial imaging was performed from the skull base to vertex without intravenous administration of contrast. This CT examination was performed using dose optimization techniques as appropriate, variously including the following: *Automated exposure control *Adjustment of mA and/or kV according to patient size (this includes techniques or standardized protocols for targeted exams where dose is matched to indication/reason for exam; i.e. extremities or head) *Use of iterative reconstruction technique DLP: 890.00 mGy-cm FINDINGS: Redemonstrated is a residual left-sided subdural collection which has diminished in size from the previous exam but still contains some residual hyperdense clot. On the previous study, this measured 1.1 cm in thickness in the coronal plane compared to approximately 0.4 cm in thickness on the current study. The degree of hyperdense clot within this collection has considerably improved. The AP extent of the collection is also diminished from previous study. Redemonstrated are postoperative changes involving the left calvarium similar to the previous study. No new intracranial hemorrhage is identified. There is a small remote lacunar infarct in the right caudate head which is stable. Subtle small patchy zones of hypodensity seen in the white matter bilaterally, similar to prior study, consistent with chronic ischemic microangiopathy. Probable tiny remote infarcts in the putamen bilaterally. There are bilateral carotid siphon mural calcifications, unchanged. The ventricular system is within normal limits without hydrocephalus. Probable retention cyst in the sphenoid sinus on the left, stable in appearance, and probable retention cyst in the left maxillary sinus, better visualized on current study. CT/CT head/brain wo IV con IMPRESSION: 1. Followup study demonstrating considerable improvement in the size of the previously noted left-sided subdural hematoma with postoperative changes again noted on the left. See above for details. 2. Scattered mild chronic ischemic microangiopathy in the white matter of both cerebral hemispheres again noted with tiny remote lacunar infarcts in the basal ganglia also again seen.
== END 2021-11-13 12:19 | disposition home or self-care (01) ==
LOC: HO.CT 12:18
PROVIDERS: Visit Provider Internal Medicine Interventional Cardiology
DX: M79.81 Nontraumatic hematoma of soft tissue (principal)
CPT/HCPCS: 70450

== ENCOUNTER 2021-11-16 05:40 | Outpatient (REF) | payer MEDICARE, SELFPAY ==
[2021-11-16 09:02] LABS: Anion Gap 14 (12-20); Blood Urea Nitrogen 14 mg/dL (9-16); Calcium 8.6 mg/dL (8.4-10.2); Carbon Dioxide 25 mmol/L (22-29); Chloride 104 mmol/L (96-108); Estimated Glomerular Filt Rate > 60; Glucose Fasting 84 mg/dL (60-99); Sodium 139 mmol/L (135-145)
[2021-11-16 09:18] LABS: Alanine Aminotransferase 23 U/L (0-40); Albumin Level 3.8 g/dL (3.5-5.0); Alkaline Phosphatase 100 U/L (39-117); Aspartate Amino Transferase 21 U/L (5-37); Bilirubin Direct 0.3 mg/dL (0.0-0.5); Bilirubin Total 0.5 mg/dL (0.0-1.0); Cholesterol 130 mg/dL; HDL Cholesterol 32 mg/dL; LDL Cholesterol Calculated 84 mg/dl; Total Protein 6.3 g/dL (6.5-8.0); Triglycerides 70 mg/dL
== END 2021-11-16 05:41 | disposition home or self-care (01) ==
LOC: HO.HSH3N 05:40
PROVIDERS: Visit Provider Internal Medicine
DX: I48.91 Unspecified atrial fibrillation (principal); I10 Essential (primary) hypertension
CPT/HCPCS: 36415; 80048; 80061; 80076

== ENCOUNTER 2021-12-07 05:51 | Outpatient (REF) | payer MEDICARE, SELFPAY ==
[2021-12-07 08:26] LABS: Alanine Aminotransferase 23 U/L (0-40); Albumin Level 4.1 g/dL (3.5-5.0); Alkaline Phosphatase 109 U/L (39-117); Anion Gap 13 (12-20); Aspartate Amino Transferase 24 U/L (5-37); Bilirubin Direct 0.3 mg/dL (0.0-0.5); Bilirubin Total 0.7 mg/dL (0.0-1.0); Blood Urea Nitrogen 14 mg/dL (9-16); Calcium 9.2 mg/dL (8.4-10.2); Carbon Dioxide 28 mmol/L (22-29); Chloride 105 mmol/L (96-108); Cholesterol 146 mg/dL; Estimated Glomerular Filt Rate > 60; Glucose Fasting 87 mg/dL (60-99); HDL Cholesterol 36 mg/dL; LDL Cholesterol Calculated 96 mg/dl; Potassium 4.2 mmol/L (3.3-5.1); Sodium 142 mmol/L (135-145); Total Protein 6.8 g/dL (6.5-8.0); Triglycerides 73 mg/dL
== END 2021-12-07 05:52 | disposition home or self-care (01) ==
LOC: HO.HSH3N 05:51
PROVIDERS: Internal Medicine; Visit Provider Nurse Practitioner
DX: I10 Essential (primary) hypertension (principal); E87.8 Other disorders of electrolyte and fluid balance, not elsewhere classified
CPT/HCPCS: 36415; 80048; 80061; 80076

== ENCOUNTER → 2022-05-10 12:10 | Outpatient (BNVA) | payer MEDICARE, SELFPAY | PROVIDERS: PCP Nurse Practitioner Acute Care; Referring Provider Nurse Practitioner Acute Care; Visit Provider Internal Medicine | DX: Z45.018 Encounter for adjustment and management of other part of cardiac pacemaker (principal); I48.0 Paroxysmal atrial fibrillation; I42.9 Cardiomyopathy, unspecified; I47.20 Ventricular tachycardia, unspecified; I35.0 Nonrheumatic aortic (valve) stenosis; I10 Essential (primary) hypertension; F03.90 Unspecified dementia, unspecified severity, without behavioral disturbance, psychotic disturbance, mood disturbance, and anxiety | CPT/HCPCS: 93280; 99212 ==

== ENCOUNTER 2022-05-18 05:37 | Outpatient (REF) | payer MEDICARE, SELFPAY ==
[2022-05-18 12:05] LABS: Anion Gap 9 (12-20); Blood Urea Nitrogen 14 mg/dL (9-16); Calcium 8.5 mg/dL (8.4-10.2); Carbon Dioxide 27 mmol/L (22-29); Chloride 107 mmol/L (96-108); Estimated Glomerular Filt Rate > 60; Glucose Fasting 84 mg/dL (60-99); Sodium 139 mmol/L (135-145)
== END 2022-05-18 05:38 | disposition home or self-care (01) ==
LOC: HO.HSH3N 05:37
PROVIDERS: Visit Provider Nurse Practitioner Acute Care
DX: I48.91 Unspecified atrial fibrillation (principal)
CPT/HCPCS: 36415; 80048

== ENCOUNTER 2022-06-11 06:15 | Outpatient (REF) | payer MEDICARE, SELFPAY ==
[2022-06-11 06:41] LABS: Phosphorus 3.3 mg/dL (2.7-4.5)
== END 2022-06-11 06:16 | disposition home or self-care (01) ==
LOC: HO.HSH3N 06:15
PROVIDERS: Visit Provider Nurse Practitioner Acute Care
DX: E83.39 Other disorders of phosphorus metabolism (principal)
CPT/HCPCS: 36415; 84100

== ENCOUNTER 2022-07-20 10:30 | Outpatient (REF) | payer MEDICARE, SELFPAY ==
--- NOTE | ~2022-07-20 | CT_ITS ---
EXAMINATION: CT HEAD WITHOUT CONTRAST CLINICAL INFORMATION: Left-sided craniotomy. Subdural hematoma. COMPARISON: CT head from 11/13/2021. TECHNIQUE: Contiguous axial imaging was performed from the skull base to vertex without intravenous administration of contrast. This CT examination was performed using dose optimization techniques as appropriate, variously including the following: *Automated exposure control. *Adjustment of mA and/or kV according to patient size (this includes techniques or standardized protocols for targeted exams where dose is matched to indication/reason for exam; i.e. extremities or head). *Use of iterative reconstruction technique. DLP: 775 mGy-cm FINDINGS: Changes of left parietal craniotomy for subdural hematoma evacuation. Trace residual extradural collection subjacent to the craniotomy flap, unchanged. There is no evidence of acute intracranial hemorrhage or edematous territorial infarction. Small chronic lacunar infarcts within the right caudate head and left lentiform nucleus. No new loss of kumar-white matter differentiation. A few foci of hypoattenuation in the periventricular and deep white matter are consistent with mild microangiopathy. Proportional prominence of the ventricles and sulcal spaces without evidence of obstructive hydrocephalus. No abnormal mass effect or midline shift. No extra-axial fluid collections. Calcific atherosclerotic disease of the intracranial internal carotid and vertebral arteries. No acute soft tissue or osseous abnormalities. 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 Mucous retention cyst within the left maxillary sinus. Mild mucosal thickening of the paranasal sinuses. The mastoid air cells and middle ear cavities are clear. Bilateral lens extractions. CT/CT head/brain wo IV con IMPRESSION: 1. No evidence of acute intracranial hemorrhage or edematous territorial infarction. 2. Changes of left parietal craniotomy for subdural hematoma evacuation. No evidence of recurrent subdural hematoma. 3. Mild underlying microangiopathy and generalized cerebral volume loss.
== END 2022-07-20 10:31 | disposition home or self-care (01) ==
LOC: HO.CT 10:30
PROVIDERS: PCP Nurse Practitioner Acute Care; Visit Provider Nurse Practitioner Acute Care
DX: I62.00 Nontraumatic subdural hemorrhage, unspecified (principal); Z48.811 Encounter for surgical aftercare following surgery on the nervous system
CPT/HCPCS: 70450

== ENCOUNTER → 2022-08-19 23:59 | Outpatient (BNV) | payer MEDICARE, SELFPAY ==
--- NOTE | 2022-08-25 14:15 | A.OFFVIS_ITS ---
Intake Intake Visit Reasons: Remote Device Check- [employer]otronik Allergies No Known Allergies [No Known Allergies*] Allergy (Verified 05/10/22 12:58) [facility] Medical History (Updated 05/10/22 @ 13:20 by Colt Baxter MD) Cardiomyopathy Dementia Essential hypertension Heart block Normally functioning cardiac pacemaker present PAF (paroxysmal atrial fibrillation) Subdural hematoma Surgical History History of permanent cardiac pacemaker placement (~04/2019) Family History Father No problems noted. Mother No problems noted. Social History (Updated 05/10/22 @ 13:03 by Mary Hatfield) Alcohol intake: current Alcohol intake frequency: 0-2 drinks per day Patient Tobacco Use Status: Former Tobacco user Office Procedures Cardiac Device Check Cardiac Device Check Details: Date of service- 08/19/2022 ; Battery life 65%; normal lead parameters; AP 99%; MANAGER SPA 100%; no significant arrhythmias. Overall normal device function. [id number] Cardiac Device Interrogation, pacemaker Procedure code (CPT) selection complete Assessment & Plan Assessment & Plan (1) PAF (paroxysmal atrial fibrillation): Code(s): I48.0 - Paroxysmal atrial fibrillation (2) Cardiomyopathy: Code(s): I42.9 - Cardiomyopathy, unspecified Coding Level of Care Code Procedure Only Diagnoses PAF (paroxysmal atrial fibrillation) I48.0 Cardiomyopathy I42.9 CPT Codes Cardiac Device Check - Cardiac Device 12: [id number] Cardiac Device Interrogation, pacemaker ([id number])
== END ==
PROVIDERS: PCP Nurse Practitioner Acute Care; Visit Provider Internal Medicine
DX: I48.0 Paroxysmal atrial fibrillation (principal); Z95.0 Presence of cardiac pacemaker
CPT/HCPCS: 93294

== ENCOUNTER 2022-09-22 05:51 | Outpatient (REF) | payer MEDICARE, SELFPAY ==
[2022-09-22 14:20] LABS: Anion Gap 11 (12-20); Blood Urea Nitrogen 14 mg/dL (9-16); Carbon Dioxide 26 mmol/L (22-29); Chloride 108 mmol/L (96-108); Estimated Glomerular Filt Rate > 60; Glucose Fasting 96 mg/dL (60-99); Phosphorus 3.4 mg/dL (2.7-4.5); Sodium 141 mmol/L (135-145)
== END 2022-09-22 05:52 | disposition home or self-care (01) ==
LOC: HO.HSH3N 05:51
PROVIDERS: Visit Provider Nurse Practitioner Acute Care
DX: E83.39 Other disorders of phosphorus metabolism (principal)
CPT/HCPCS: 36415; 80048; 84100

== ENCOUNTER 2022-10-11 13:44 | Outpatient (REF) | payer MEDICARE, SELFPAY ==
[2022-10-11 13:47] LABS: MANUAL DIFF FLAG NO
[2022-10-11 13:56] LABS: Basophils Absolute Auto 0.1 X10*3/uL (0.0-0.2); Basophils Percent Auto 1.1 % (0-2); Eosinophils Absolute Auto 0.4 X10*3/uL (0.0-0.4); Eosinophils Percent Auto 5.1 % (0-4); Hemoglobin 13.7 g/dl (14.0-18.0); Imm Gran Abs Auto 0.02 X10*3/uL (0.00-0.03); Imm Gran Pct Auto 0.3 % (0.0-0.4); Lymphocytes Percent Auto 26.4 % (20-40); Mean Corpuscular HGB Conc 33.4 g/dl (31.0-36.0); Mean Corpuscular Hemoglobin 32.4 pg (27.0-33.0); Mean Corpuscular Volume 96.9 fL (80.0-98.0); Mean Platelet Volume 9.4 fL (9.4-12.4); Monocytes Absolute Auto 0.8 X10*3/uL (0.1-1.2); Monocytes Percent Auto 11.1 % (2-11); Neutrophils Absolute Auto 4.2 x10*3/uL (2.0-8.3); Platelet Count 210 X10*3/uL (160-400); Red Blood Count 4.23 X10*6/uL (4.60-5.80); Red Cell Distribution Width 12.7 % (11.0-16.0); White Blood Count 7.4 X10*3/uL (4.8-10.8)
[2022-10-11 14:00] LABS: Appearance Urine Clear; Color Urine Yellow; Glucose Urine UA Negative (Negative); Leukocyte Esterase Urine Negative (Negative); Nitrite Urine Negative (Negative); Specific Gravity - Urine 1.015 (1.005-1.025); Urine Blood Negative (Negative); Urine Ketones Negative (Negative); Urine Protein Negative (Neg-Trace)
[2022-10-11 14:06] LABS: Anion Gap 11 (12-20); Blood Urea Nitrogen 16 mg/dL (9-16); Calcium 8.8 mg/dL (8.4-10.2); Carbon Dioxide 21 mmol/L (22-29); Chloride 110 mmol/L (96-108); Estimated Glomerular Filt Rate > 60; Glucose Random 133 mg/dL (60-115); Potassium 4.3 mmol/L (3.3-5.1); Sodium 138 mmol/L (135-145)
[2022-10-11 14:42] LABS: Erythrocyte Sedimentation Rate 12 MM/HR (0-15)
== END 2022-10-11 13:45 | disposition home or self-care (01) ==
LOC: HO.HSH3N 13:44
PROVIDERS: Visit Provider Nurse Practitioner
DX: R41.82 Altered mental status, unspecified (principal)
CPT/HCPCS: 36415; 80048; 81003; 85025; 85652

== ENCOUNTER 2022-10-15 06:43 | Outpatient (REF) | payer MEDICARE, SELFPAY ==
[2022-10-15 07:18] LABS: INTERNATIONAL NORM RATIO 1.1 (0.9-1.1); Phosphorus 3.8 mg/dL (2.7-4.5); Prothrombin Time 12.9 SEC (11.1-13.3)
[2022-10-15 07:21] LABS: Partial Thromboplastin Time 29.6 SEC (26.0-36.4)
[2022-10-15 07:34] LABS: Vitamin D 25-OH Total 30.9 ng/mL (>30)
[2022-10-15 07:50] LABS: Folate 15.7 ng/mL (> or = 4.0); Vitamin B12 313 pg/mL (200-900)
== END 2022-10-15 06:44 | disposition home or self-care (01) ==
LOC: HO.HSH3N 06:43
PROVIDERS: Visit Provider Nurse Practitioner Acute Care
DX: D52.9 Folate deficiency anemia, unspecified (principal); E83.39 Other disorders of phosphorus metabolism; E55.9 Vitamin D deficiency, unspecified; I48.91 Unspecified atrial fibrillation; Z79.01 Long term (current) use of anticoagulants
CPT/HCPCS: 36415; 82306; 82607; 82746; 84100; 85610; 85730

== ENCOUNTER 2022-10-21 07:07 | Outpatient (REF) | payer MEDICARE, SELFPAY ==
[2022-10-21 07:10] LABS: MANUAL DIFF FLAG NO
[2022-10-21 07:26] LABS: Anion Gap 11 (12-20); Blood Urea Nitrogen 24 mg/dL (9-16); Calcium 8.9 mg/dL (8.4-10.2); Carbon Dioxide 22 mmol/L (22-29); Chloride 108 mmol/L (96-108); Estimated Glomerular Filt Rate > 60; Glucose Random 91 mg/dL (60-115); Potassium 4.7 mmol/L (3.3-5.1); Sodium 136 mmol/L (135-145)
[2022-10-21 07:42] LABS: Basophils Absolute Auto 0.1 X10*3/uL (0.0-0.2); Basophils Percent Auto 1.1 % (0-2); Eosinophils Absolute Auto 0.3 X10*3/uL (0.0-0.4); Eosinophils Percent Auto 3.9 % (0-4); Hemoglobin 13.1 g/dl (14.0-18.0); Imm Gran Abs Auto 0.04 X10*3/uL (0.00-0.03); Imm Gran Pct Auto 0.5 % (0.0-0.4); Lymphocytes Absolute Auto 1.7 X10*3/uL (1.2-4.9); Lymphocytes Percent Auto 20.3 % (20-40); Mean Corpuscular HGB Conc 33.6 g/dl (31.0-36.0); Mean Corpuscular Volume 95.1 fL (80.0-98.0); Mean Platelet Volume 9.8 fL (9.4-12.4); Monocytes Absolute Auto 1.1 X10*3/uL (0.1-1.2); Monocytes Percent Auto 13.1 % (2-11); Neutrophils Percent Auto 61.1 % (45-73); Platelet Count 227 X10*3/uL (160-400); Red Cell Distribution Width 12.7 % (11.0-16.0); White Blood Count 8.2 X10*3/uL (4.8-10.8)
== END 2022-10-21 07:08 | disposition home or self-care (01) ==
LOC: HO.HSH3N 07:07
PROVIDERS: Visit Provider Nurse Practitioner Acute Care
DX: Z13.89 Encounter for screening for other disorder (principal)
CPT/HCPCS: 36415; 80048; 85025

== ENCOUNTER 2022-10-21 22:34 | Inpatient (IN) | payer MEDICARE, SELFPAY ==
--- NOTE | ~2022-10-21 | XR_ITS ---
EXAMINATION: XR CHEST CLINICAL INFORMATION: Shortness of breath. COMPARISON: 08/18/2021 TECHNIQUE: Frontal view of the chest was obtained. FINDINGS: Dual lead pacemaker is unchanged. Cardiac silhouette is within normal limits in size for technique. Calcific atherosclerosis is present within the tortuous thoracic aorta. Thickening of the central bronchopulmonary interstitium. Increased left retrocardiac opacification, likely corresponding to atelectasis. Otherwise, no findings of consolidation. No pneumothorax or pleural effusion. No acute osseous findings. XR/XR chest 1V IMPRESSION: Thickening of the central bronchopulmonary interstitium which can be seen with a pulmonary interstitial edema or small airways process such as asthma or atypical/viral infection. Probable left basilar atelectasis.
--- NOTE | 2022-10-21 22:42 | ED_ITS ---
HPI - URI/Sore Throat General Chief Complaint: Dyspnea Stated Complaint: diagnosed pneumonia strtd on abx, no improvement Time Seen by Provider: 10/21/22 22:41 Source: EMS Mode of arrival: ambulatory Limitations: no limitations History of Present Illness HPI Narrative: Patient 87 years old from [facility] with history of dementia essential hypertension heart block cardiac pacemaker paroxysmal AFib history of subdural hematoma and cardiomyopathy currently not on any anticoagulation comes from [facility] for increased cough and shortness of breath since yesterday had chest x-ray done question pneumonia patient has been wheezing saturating 88-90% at room air started on doxycycline Augmentin sent him here as not getting better patient denies any chest pain his leg edema patient echo done in 07/05 showed LV ejection fraction of 40% mild aortic valve stenosis with valve area 1.83 Related Data Home Medications Medication Instructions Recorded Confirmed cholecalciferol (vitamin D3) 50 50 mcg PO DAILY 05/12/20 10/21/22 mcg (2,000 unit) capsule donepezil 10 mg tablet 10 mg PO BEDTIME 05/12/20 10/21/22 metoprolol succinate 50 mg 50 mg PO DAILY 05/11/21 10/21/22 tablet,extended release 24 hr atorvastatin 10 mg tablet 10 mg PO BEDTIME 05/10/22 10/21/22 lisinopril 40 mg tablet 40 mg PO DAILY 05/10/22 10/21/22 acetaminophen 325 mg tablet 650 mg PO Q4H PRN pain/fever 10/21/22 10/21/22 amoxicillin 875 mg-potassium 1 tab PO BID 10/21/22 10/21/22 clavulanate 125 mg tablet clonazepam 0.5 mg tablet 0.25 mg PO BEDTIME 10/21/22 10/21/22 doxycycline hyclate 100 mg tablet 100 mg PO BID 10/21/22 10/21/22 folic acid 1 mg tablet 1 mg PO DAILY 10/21/22 10/21/22 ipratropium 0.5 mg-albuterol 3 mg 3 ml inhalation BID 10/21/22 10/21/22 (2.5 mg base)/3 mL nebulization soln loratadine 10 mg tablet 10 mg PO DAILY 10/21/22 10/21/22 psyllium husk 3.4 gram/5.4 gram 1 tbsp PO DAILY 10/21/22 10/21/22 oral powder (Metamucil) Allergies Allergy/AdvReac Type Severity Reaction Status Date / Time No Known Allergies Allergy Verified 05/10/22 12:58 [No Known Allergies*] Review of Systems 2 Review of Systems: Yes all other systems are reviewed and are negative [facility] Past Medical History Medical History Subdural hematoma Dementia Cardiomyopathy Heart block Essential hypertension PAF (paroxysmal atrial fibrillation) Normally functioning cardiac pacemaker present Surgical History History of permanent cardiac pacemaker placement (~04/2019) Family History Family History Father No problems noted. Mother No problems noted. Social History Social History Alcohol intake: never Patient Tobacco Use Status: Former Tobacco user Smoked in Last 30 Days: No Use of substances other than those prescribed or required for medical reasons: No Advance Directives: No Advance Directives Information Provided: No Physical Exam 2 Vital Signs: Vital Signs: Last Vital Signs Temp 97.8 F 10/21/22 23:05 Pulse 748 H 10/22/22 05:57 Resp 19 10/22/22 05:57 BP 91/54 L 10/22/22 05:57 Pulse Ox 94 10/22/22 05:57 O2 Del Method Nasal Cannula 10/22/22 05:57 O2 Flow Rate 4 10/22/22 05:57 Oxygen Flow Rate 3 10/21/22 23:03 BMI result Body Mass Index 31.4 Appearance: Alert. Oriented X3. No acute distress. Eyes: No pallor or icterus ENT: Pharynx normal. Oral Mucosa moist Neck: Normal inspection. Neck supple. CVS: Normal heart rate and rhythm. Pulses normal. Respiratory: Moderate respiratory distress with expiratory wheezing few rales at the bases Equal air entry bilateral, Abdomen: Soft and nontender. Bowel sounds are present, no mass palpable, no CVA tenderness Skin: Skin warm and dry. Normal skin color. Normal skin turgor. Extremities: Trace lower extremity edema. No calf tenderness Neuro: Oriented X 3. No motor deficit. No sensory deficit.No cerebellar signs , cranial nerves II-XII intact Medications Administered Generic Name Dose Route Start Last Admin Trade Name Freq PRN Reason Stop Dose Admin Heparin Sodium (Porcine) 5,000 unit 10/22/22 02:30 10/22/22 02:59 Heparin Sodium,Porcine 5,000 Unit/Ml Vial SUBCUT 5,000 unit Q12H RENATA Administration Discontinued Medications Generic Name Dose Route Start Last Admin Trade Name Freq PRN Reason Stop Dose Admin Albuterol Sulfate 5 mg 10/21/22 23:00 10/21/22 23:15 Albuterol Sulfate (0.083%) 2.5 Mg/3 Ml Vial.Neb INHALE 10/21/22 23:01 5 mg ONCE ONE Administration Furosemide 40 mg 10/22/22 00:24 10/22/22 00:39 Furosemide 40 Mg/4 Ml Vial IVPUSH 10/22/22 00:25 40 mg ONCE ONE Administration Protocol Guaifenesin/Codeine Phosphate 10 ml 10/22/22 01:13 10/22/22 01:28 Guaifen/Codeine Sf 200/20/10ml 10 Ml Liquid PO 10/22/22 01:14 10 ml ONCE ONE Administration Ceftriaxone Sodium 1 gm/ 50 mls @ 100 mls/hr 10/22/22 01:15 10/22/22 02:06 Sodium Chloride IV 10/22/22 01:44 Infused ONCE ONE Infusion Medical Decision Making Medical Decision Making [facility] Narrative: Patient with acute shortness of breath with cough likely viral bronchitis lab workup showed elevated troponin without any EKG changes of ischemia patient recently has subdural hematoma in 08/06 craniotomy for subdural hematoma in 08/2021 at this time patient denies any chest pain patient does have a history of dementia. Given Lasix improved in his cough will admit patient for rule out ACS Differential Diagnosis Differential Diagnoses: The differential diagnosis associated with the presentation includes CHF/nondistended/pneumonia Admission/Observation Consideration of admission/observation: Escalation of care including admission/observation considered Consult Healthcare Provider Management of the patient was discussed with: Hospitalist Lab Data [facility] Lab Attestation statement: I reviewed the patient's lab results. 10/22/22 05:38 10/22/22 05:38 Labs: Lab Results 10/21/22 10/21/22 10/21/22 Range/Units 22:58 22:59 23:09 WBC 8.5 (4.8-10.8) X10*3/uL RBC 4.05 L (4.60-5.80) X10*6/uL Hgb 12.9 L (14.0-18.0) g/dl Hct 38.3 L (42.0-52.0) % MCV 94.6 (80.0-98.0) fL MCH 31.9 (27.0-33.0) pg MCHC 33.7 (31.0-36.0) g/dl RDW 12.7 (11.0-16.0) % Plt Count 231 (160-400) X10*3/uL MPV 9.1 L (9.4-12.4) fL Immature Gran % (Auto) 0.2 (0.0-0.4) % Neut % (Auto) 57.6 (45-73) % Lymph % (Auto) 25.3 (20-40) % [place] % (Auto) 12.0 H (2-11) % Eos % (Auto) 4.0 (0-4) % Baso % (Auto) 0.9 (0-2) % Lymph # (Auto) 2.1 (1.2-4.9) X10*3/uL [place] # (Auto) 1.0 (0.1-1.2) X10*3/uL Eos # (Auto) 0.3 (0.0-0.4) X10*3/uL Baso # (Auto) 0.1 (0.0-0.2) X10*3/uL Abs Immat Gran (auto) 0.02 (0.00-0.03) X10*3/uL Absolute Neuts (auto) 4.9 (2.0-8.3) x10*3/uL Absolute Nucleated RBC 0.000 (0.0-0.012) X10*3/uL Nucleated RBC % (auto) 0.0 (0.0-0.2) /100WBC PT 13.4 H (11.1-13.3) SEC INR 1.1 (0.9-1.1) Sodium 137 (135-145) mmol/L Potassium 4.6 (3.3-5.1) mmol/L Chloride 109 H (96-108) mmol/L Carbon Dioxide 22 (22-29) mmol/L Anion Gap 11 L (12-20) BUN 29 H (9-16) mg/dL Creatinine 1.02 (0.5-1.4) mg/dL Estim Creat Clear Calc 59.5 Estimated GFR > 60 Random Glucose 106 (60-115) mg/dL Lactic Acid 1.1 (0.5-2.0) mmol/L Calcium 8.7 (8.4-10.2) mg/dL Magnesium 2.0 (1.6-2.6) mg/dL Troponin I High Sens 7295.6 H* (<3.5-35.0) ng/L B-Natriuretic Peptide 680 H (<100) pg/mL Urine Color Urine Appearance Urine pH (5.0-9.0) Ur Specific [place] (1.005-1.025) Urine Protein (Neg-Trace) mg/dL Urine Glucose (UA) (Negative) mg/dL Urine Ketones (Negative) mg/dL Urine Blood (Negative) Urine Nitrite (Negative) Ur Leukocyte Esterase (Negative) Influenza Type A (PCR) (Negative) Influenza Type B (PCR) (Negative) RSV RNA Qual (PCR) (Negative) SARS-CoV-2 RNA (RT-PCR) (Negative) 10/22/22 10/22/22 Range/Units 00:37 00:44 WBC (4.8-10.8) X10*3/uL RBC (4.60-5.80) X10*6/uL Hgb (14.0-18.0) g/dl Hct (42.0-52.0) % MCV (80.0-98.0) fL MCH (27.0-33.0) pg MCHC (31.0-36.0) g/dl RDW (11.0-16.0) % Plt Count (160-400) X10*3/uL MPV (9.4-12.4) fL Immature Gran % (Auto) (0.0-0.4) % Neut % (Auto) (45-73) % Lymph % (Auto) (20-40) % [place] % (Auto) (2-11) % Eos % (Auto) (0-4) % Baso % (Auto) (0-2) % Lymph # (Auto) (1.2-4.9) X10*3/uL [place] # (Auto) (0.1-1.2) X10*3/uL Eos # (Auto) (0.0-0.4) X10*3/uL Baso # (Auto) (0.0-0.2) X10*3/uL Abs Immat Gran (auto) (0.00-0.03) X10*3/uL Absolute Neuts (auto) (2.0-8.3) x10*3/uL Absolute Nucleated RBC (0.0-0.012) X10*3/uL Nucleated RBC % (auto) (0.0-0.2) /100WBC PT (11.1-13.3) SEC INR (0.9-1.1) Sodium (135-145) mmol/L Potassium (3.3-5.1) mmol/L Chloride (96-108) mmol/L Carbon Dioxide (22-29) mmol/L Anion Gap (12-20) BUN (9-16) mg/dL Creatinine (0.5-1.4) mg/dL Estim Creat Clear Calc Estimated GFR Random Glucose (60-115) mg/dL Lactic Acid (0.5-2.0) mmol/L Calcium (8.4-10.2) mg/dL Magnesium (1.6-2.6) mg/dL Troponin I High Sens (<3.5-35.0) ng/L B-Natriuretic Peptide (<100) pg/mL Urine Color Yellow Urine Appearance Clear Urine pH 5.5 (5.0-9.0) Ur Specific [place] 1.020 (1.005-1.025) Urine Protein Negative (Neg-Trace) mg/dL Urine Glucose (UA) Negative (Negative) mg/dL Urine Ketones Negative (Negative) mg/dL Urine Blood Negative (Negative) Urine Nitrite Negative (Negative) Ur Leukocyte Esterase Negative (Negative) Influenza Type A (PCR) NEGATIVE (Negative) Influenza Type B (PCR) NEGATIVE (Negative) RSV RNA Qual (PCR) NEGATIVE (Negative) SARS-CoV-2 RNA (RT-PCR) NEGATIVE (Negative) Independent Interpretation I performed an independent interpretation of an: EKG Interpretation: Pacemaker rhythm ventricular rate 78 beats per minute no acute ST elevation Discharge Plan Discharge Clinical Impression: Acute bronchitis, CHF (congestive heart failure), Acute non-ST elevation myocardial infarction (NSTEMI) Patient Disposition: Admitted As Inpatient
--- NOTE | 2022-10-21 22:51 | ECG_ITS ---
Test Reason : SOB Blood Pressure : / mmHG Vent. Rate : 078 BPM Atrial Rate : 078 BPM P-R Int : 212 ms QRS Dur : 146 ms QT Int : 424 ms P-R-T Axes : 027 -47 136 degrees QTc Int : 483 ms AV dual-paced rhythm with prolonged AV conduction Abnormal ECG When compared with ECG of 18-AUG-2021 18:26, Vent. rate has increased BY 7 BPM GA interval has increased Referred By: Mando Delong Electronically Signed By:DARBY CANA[place]
[2022-10-21 23:03] VITALS: BP 109/74; PULSE 70; PULSE 75; RESP 24; TEMP 36.6; O2SAT 93; O2SAT 95; BMI 31.4
[2022-10-21 23:05] VITALS: BP 107/47; PULSE 75; RESP 24; TEMP 36.6; O2SAT 95
[2022-10-21 23:05] LABS: MANUAL DIFF FLAG NO
--- NOTE | 2022-10-21 23:07 | PC.NURSE ---
Pt [facility] ED [facility]. Pt has hx of dementia. Pt was recently diagnosed with pneumonia, is having increased difficulty breathing today. Pt on 2 LPM at baseline, satting 93% at facility. EMS gave a duoneb with no effect. Pt has auditory expiratory wheezes, denies pain. EKG obtained, 20g IV placed in the right AC, labs have been collected and sent, and pt placed on cardiac and oxygen monitoring.
[2022-10-21 23:09] LABS: Basophils Absolute Auto 0.1 X10*3/uL (0.0-0.2); Basophils Percent Auto 0.9 % (0-2); Eosinophils Absolute Auto 0.3 X10*3/uL (0.0-0.4); Hematocrit 38.3 % (42.0-52.0); Hemoglobin 12.9 g/dl (14.0-18.0); Imm Gran Abs Auto 0.02 X10*3/uL (0.00-0.03); Imm Gran Pct Auto 0.2 % (0.0-0.4); Lymphocytes Absolute Auto 2.1 X10*3/uL (1.2-4.9); Lymphocytes Percent Auto 25.3 % (20-40); Mean Corpuscular HGB Conc 33.7 g/dl (31.0-36.0); Mean Corpuscular Hemoglobin 31.9 pg (27.0-33.0); Mean Corpuscular Volume 94.6 fL (80.0-98.0); Mean Platelet Volume 9.1 fL (9.4-12.4); Neutrophils Absolute Auto 4.9 x10*3/uL (2.0-8.3); Neutrophils Percent Auto 57.6 % (45-73); Platelet Count 231 X10*3/uL (160-400); Red Blood Count 4.05 X10*6/uL (4.60-5.80); Red Cell Distribution Width 12.7 % (11.0-16.0); White Blood Count 8.5 X10*3/uL (4.8-10.8)
[2022-10-21 23:15] VITALS: PULSE 78; RESP 20; O2SAT 93
[2022-10-21] MEDS: Albuterol Sulfate (0.083%) 2.5 MG/3 ML VIAL.NEB 5 MG INHALE (23:15)
--- NOTE | 2022-10-21 23:19 | MHC.EDTECH ---
[facility] assumed care of this Pt upon arrival. Pt placed on nasal canula 4l, Blood cultures labs sent for processing. EKG Completed. pt placed on electronic device monitor. PT changed into hospital gown red fall risk band and socks put on pt
--- NOTE | 2022-10-21 23:20 | PC.NURSE ---
Med Rec completed
[2022-10-21 23:37] LABS: Lactic Acid 1.1 mmol/L (0.5-2.0)
[2022-10-21 23:41] LABS: INTERNATIONAL NORM RATIO 1.1 (0.9-1.1); Prothrombin Time 13.4 SEC (11.1-13.3)
[2022-10-21 23:44] LABS: Anion Gap 11 (12-20); Blood Urea Nitrogen 29 mg/dL (9-16); Calcium 8.7 mg/dL (8.4-10.2); Carbon Dioxide 22 mmol/L (22-29); Chloride 109 mmol/L (96-108); Creatinine Clr Calc Pharmacy 59.5; Estimated Glomerular Filt Rate > 60; Glucose Random 106 mg/dL (60-115); Potassium 4.6 mmol/L (3.3-5.1); Sodium 137 mmol/L (135-145)
[2022-10-21 23:47] LABS: B Type Natriuretic Peptide 680 pg/mL (<100)
[2022-10-22] VITALS (10 sets, daily range): BP systolic 91–121; BP diastolic 46–66; PULSE 62–748; RESP 16–26; TEMP 36.6–37.1; O2SAT 92–95; BMI 31.1
[2022-10-22] MEDS: Furosemide 40 MG/4 ML VIAL IVPUSH ×2 (00:39→18:21)
[2022-10-22 00:44] LABS: Appearance Urine Clear; Color Urine Yellow; Glucose Urine UA Negative (Negative); Leukocyte Esterase Urine Negative (Negative); Nitrite Urine Negative (Negative); PH 5.5 (5.0-9.0); Urine Blood Negative (Negative); Urine Ketones Negative (Negative); Urine Protein Negative (Neg-Trace)
[2022-10-22 01:24] LABS: Influenza A PCR NEGATIVE (Negative); Influenza B PCR NEGATIVE (Negative); Resp Syncy Virus RNA Qual PCR NEGATIVE (Negative); SARS COV2 PCR INHOUSE NEGATIVE (Negative)
[2022-10-22] MEDS: guaiFEN/Codeine SF 200/20/10ML 10 ML LIQUID PO (01:28)
[2022-10-22] MEDS: cefTRIAXone sodium 1 GM in 0.9 % Sodium Chloride 50 ML IV (01:28)
--- NOTE | 2022-10-22 02:24 | P.HPHOSP_ITS ---
History of Present Illness Date of Service: 10/22/22 Chief Complaint: SOB 87-year-old male with past medical history of dementia essential hypertension heart block cardiac pacemaker paroxysmal AFib history of subdural hematoma and cardiomyopathy, chronic hypoxic respiratory failure on 2 L of baseline oxygen comes into the hospital from [facility] with complaints of shortness of breath, cough. Patient had an x-ray done at [facility] which showed possible pneumonia, patient was started on p.o. antibiotics what he continued to have shortness of breath with O2 an 89-90% and increased cough therefore sent to the ED. Patient is very demented, poor historian, unable to give a good coherent history. On arrival to the ED patient hemodynamically stable will slightly elevated respiratory rate of 24 found to be hypoxic and now requiring 4 L of O2 satting 94% Labs are significant for WBC count of 8.6, BNP 680, troponin of 7295, patient is denying chest pain head but not sure how reliable patient is at this point. EKG shows AV dual paced rhythm with prolonged AV conduction, no significant ST T wave changes suggestive of ACS Chest x-ray shows thickening of the central bronchopulmonary interstitium which can be seen with pulmonary interstitial edema Patient will be admitted for further management Review of Systems 2 Review of Systems: Yes Unobtainable due to mental condition and Unobtainable due to mental status [facility] Medical History Subdural hematoma Dementia Cardiomyopathy Heart block Essential hypertension PAF (paroxysmal atrial fibrillation) Normally functioning cardiac pacemaker present Family History Father No problems noted. Mother No problems noted. Surgical History History of permanent cardiac pacemaker placement (~04/2019) Social History Alcohol intake: never Patient Tobacco Use Status: Former Tobacco user Smoked in Last 30 Days: No Use of substances other than those prescribed or required for medical reasons: No Advance Directives: No Advance Directives Information Provided: No Meds Allergies Allergy/AdvReac Type Severity Reaction Status Date / Time No Known Allergies Allergy Verified 05/10/22 12:58 [No Known Allergies*] Home Medications Medication Instructions Recorded Confirmed Last Taken Type cholecalciferol (vitamin D3) 50 50 mcg PO DAILY 05/12/20 10/21/22 10/21/22 History mcg (2,000 unit) capsule donepezil 10 mg tablet 10 mg PO BEDTIME 05/12/20 10/21/22 10/21/22 History metoprolol succinate 50 mg 50 mg PO DAILY 05/11/21 10/21/22 10/21/22 History tablet,extended release 24 hr atorvastatin 10 mg tablet 10 mg PO BEDTIME 05/10/22 10/21/22 10/21/22 History lisinopril 40 mg tablet 40 mg PO DAILY 05/10/22 10/21/22 10/21/22 History acetaminophen 325 mg tablet 650 mg PO Q4H PRN pain/fever 10/21/22 10/21/22 10/21/22 History amoxicillin 875 mg-potassium 1 tab PO BID 10/21/22 10/21/22 10/21/22 History clavulanate 125 mg tablet clonazepam 0.5 mg tablet 0.25 mg PO BEDTIME 10/21/22 10/21/22 10/21/22 History doxycycline hyclate 100 mg tablet 100 mg PO BID 10/21/22 10/21/22 10/21/22 History folic acid 1 mg tablet 1 mg PO DAILY 10/21/22 10/21/22 10/21/22 History ipratropium 0.5 mg-albuterol 3 mg 3 ml inhalation BID 10/21/22 10/21/22 10/21/22 History (2.5 mg base)/3 mL nebulization soln loratadine 10 mg tablet 10 mg PO DAILY 10/21/22 10/21/22 10/21/22 History psyllium husk 3.4 gram/5.4 gram 1 tbsp PO DAILY 10/21/22 10/21/22 10/21/22 History oral powder (Metamucil) Physical Exam 2 Vital Signs and Narrative: Vital Signs: Last Vital Signs Temp 97.8 F 10/21/22 23:05 Pulse 82 10/22/22 01:19 Resp 22 H 10/22/22 01:19 BP 117/46 L 10/22/22 01:19 Pulse Ox 92 10/22/22 01:19 O2 Del Method Nasal Cannula 09/08/23 01:19 O2 Flow Rate 4 10/22/22 01:19 Oxygen Flow Rate 3 10/21/22 23:03 BMI result Body Mass Index 31.4 Const: Other: Awake alert, Very confused, General: cooperative and no acute distress Eyes: General: appearance normal, both eyes and all related structures Resp: Other: Crackles Effort & Inspection: normal respiratory effort Cardio: Rate: regular rate Rhythm: regular rhythm GI: Palpation (GI): Soft to palpation Auscultation: normal bowel sounds Skin: General skin exam: no rashes or lesions noted Extrem: Other: 2+ lower extremity General: Yes normal to inspection Results Labs 10/22/22 05:38 10/22/22 05:38 Labs: Laboratory Results - last 24 hr 10/21/22 10/21/22 10/22/22 22:59 23:09 00:37 MCV 94.6 MCH 31.9 MCHC 33.7 RDW 12.7 Plt Count 231 MPV 9.1 L Immature Gran % (Auto) 0.2 Neut % (Auto) 57.6 Lymph % (Auto) 25.3 [place] % (Auto) 12.0 H Eos % (Auto) 4.0 Baso % (Auto) 0.9 Lymph # (Auto) 2.1 [place] # (Auto) 1.0 Eos # (Auto) 0.3 Baso # (Auto) 0.1 Abs Immat Gran (auto) 0.02 Absolute Neuts (auto) 4.9 Absolute Nucleated RBC 0.000 Nucleated RBC % (auto) 0.0 PT 13.4 H INR 1.1 Anion Gap 11 L Estim Creat Clear Calc 59.5 Estimated GFR > 60 Random Glucose 106 Lactic Acid 1.1 Calcium 8.7 Magnesium 2.0 B-Natriuretic Peptide 680 H Urine Color Yellow Urine Appearance Clear Urine pH 5.5 Ur Specific [place] 1.020 Urine Protein Negative Urine Glucose (UA) Negative Urine Ketones Negative Urine Blood Negative Urine Nitrite Negative Ur Leukocyte Esterase Negative Influenza Type A (PCR) Influenza Type B (PCR) RSV RNA Qual (PCR) SARS-CoV-2 RNA (RT-PCR) 10/22/22 00:44 MCV MCH MCHC RDW Plt Count MPV Immature Gran % (Auto) Neut % (Auto) Lymph % (Auto) [place] % (Auto) Eos % (Auto) Baso % (Auto) Lymph # (Auto) [place] # (Auto) Eos # (Auto) Baso # (Auto) Abs Immat Gran (auto) Absolute Neuts (auto) Absolute Nucleated RBC Nucleated RBC % (auto) PT INR Anion Gap Estim Creat Clear Calc Estimated GFR Random Glucose Lactic Acid Calcium Magnesium B-Natriuretic Peptide Urine Color Urine Appearance Urine pH Ur Specific [place] Urine Protein Urine Glucose (UA) Urine Ketones Urine Blood Urine Nitrite Ur Leukocyte Esterase Influenza Type A (PCR) NEGATIVE Influenza Type B (PCR) NEGATIVE RSV RNA Qual (PCR) NEGATIVE SARS-CoV-2 RNA (RT-PCR) NEGATIVE Imaging Radiologist's Impressions: Impressions Chest X-Ray 10/21/22 23:22 IMPRESSION: Thickening of the central bronchopulmonary interstitium which can be seen with a pulmonary interstitial edema or small airways process such as asthma or atypical/viral infection. Probable left basilar atelectasis. Assessment and Plan (1) Acute exacerbation of CHF (congestive heart failure): Qualifiers: Heart failure type: systolic Qualified Code(s): I50.23 - Acute on chronic systolic (congestive) heart failure Status: Acute (2) Acute and chronic respiratory failure with hypoxia: Status: Acute (3) NSTEMI (non-ST elevated myocardial infarction): Status: Acute Plan 87-year-old male past medical history of dementia, paroxysmal AFib, history of heart block, cardiomyopathy with reduced ejection fraction, comes into the hospital with shortness of breath found to be in CHF exacerbation # acute systolic CHF - patient has a history of CHF with reduced ejection fraction, last echo done in 2021 shows an ejection fraction of 40-45% - comes in with hypoxia, cough, has lower extremity edema - elevated BNP - will treat with IV Lasix, strict I&O, daily weight, low-sodium diet - echo and cardiology consult placed # acute on chronic respiratory failure - on baseline 2 L of oxygen now requiring 4 L - likely secondary to CHF - no evidence of pneumonia - monitor respiratory status - titrate oxygen down to 2 L as tolerated - hold antibiotics # NSTEMI - has elevated troponin - likely type 2 in the setting of CHF and hypoxia - patient denies any chest pain, no EKG changes suggestive of ACS - given patient history of recurrent subdural hematoma, will hold off on treating with antibiotic dilation at this time - cardiology input appreciated - continue metoprolol # dementia - continue donepezil # hypertension - soft readings - hold antihypertensives DVT prophylaxis: Heparin subQ Given patient's need for management of CHF exacerbation patient require minimum 2 nights inpatient hospital stay for further management and monitoring Time Spent With Patient Time: Total time managing care of this patient today ____ minutes. Quality Stroke Does the patient have a stroke diagnosis?: No VTE Prior VTE?: No VTE Risk Level:: Medical - moderate - high VTE Device Contraindication: Treatment Not Indicated VTE Drug Contraindication: N/A - Med Ordered
--- NOTE | 2022-10-22 02:52 | PC.NURSE ---
Pt found standing at the end of his bed. Pt was unable to tell staff what he was doing and seemed to be very confused as to what was going on. Pt was redirected back into bed and reconnected to the monitors.
[2022-10-22] MEDS: Heparin Sodium,Porcine 5,000 UNIT/ML VIAL 5000 UNIT SUBCUT (02:59)
[2022-10-22 03:24] LABS: Troponin-I High Sensitivity 6686.7 ng/L (<3.5-35.0)
--- NOTE | 2022-10-22 03:40 | MHC.EDTECH ---
Pt given a hospital bed. Alarm set to avoid a fall. Michelle catheter put on PT by KAYLA
--- NOTE | 2022-10-22 03:45 | PC.NURSE ---
Pt got out of bed again, he stated he was worried about what would happen if he needed to go to the bathroom. Call brenner placed at the bedside. A [place] catheter was applied and pt stated he is now comfortable and that he can sleep now. Pt is in a hospital bed with the bed alarm on, lowered to the lowest position.
--- NOTE | 2022-10-22 05:48 | PC.NURSE ---
Spoke with RN from the [facility] to give an update. I informed him of pneumonia diagnosis, admission status, elevated troponin.
[2022-10-22 06:05] LABS: MANUAL DIFF FLAG NO
[2022-10-22 06:19] LABS: Basophils Absolute Auto 0.1 X10*3/uL (0.0-0.2); Basophils Percent Auto 1.2 % (0-2); Eosinophils Absolute Auto 0.4 X10*3/uL (0.0-0.4); Eosinophils Percent Auto 4.1 % (0-4); Hematocrit 38.6 % (42.0-52.0); Imm Gran Abs Auto 0.04 X10*3/uL (0.00-0.03); Imm Gran Pct Auto 0.5 % (0.0-0.4); Lymphocytes Absolute Auto 1.5 X10*3/uL (1.2-4.9); Lymphocytes Percent Auto 17.9 % (20-40); Mean Corpuscular HGB Conc 33.7 g/dl (31.0-36.0); Mean Corpuscular Hemoglobin 32.1 pg (27.0-33.0); Mean Corpuscular Volume 95.3 fL (80.0-98.0); Mean Platelet Volume 9.3 fL (9.4-12.4); Monocytes Absolute Auto 1.3 X10*3/uL (0.1-1.2); Monocytes Percent Auto 14.9 % (2-11); Neutrophils Absolute Auto 5.3 x10*3/uL (2.0-8.3); Neutrophils Percent Auto 61.4 % (45-73); Platelet Count 224 X10*3/uL (160-400); Red Blood Count 4.05 X10*6/uL (4.60-5.80); Red Cell Distribution Width 12.9 % (11.0-16.0); White Blood Count 8.6 X10*3/uL (4.8-10.8)
[2022-10-22 06:22] LABS: Alanine Aminotransferase 16 U/L (0-40); Albumin Level 3.5 g/dL (3.5-5.0); Alkaline Phosphatase 94 U/L (39-117); Anion Gap 13 (12-20); Aspartate Amino Transferase 35 U/L (5-37); Bilirubin Total 0.8 mg/dL (0.0-1.0); Blood Urea Nitrogen 27 mg/dL (9-16); Calcium 9.2 mg/dL (8.4-10.2); Carbon Dioxide 22 mmol/L (22-29); Chloride 108 mmol/L (96-108); Creatinine Clr Calc Pharmacy 54.2; Estimated Glomerular Filt Rate > 60; Glucose Random 94 mg/dL (60-115); Sodium 139 mmol/L (135-145); Total Protein 6.2 g/dL (6.5-8.0)
--- NOTE | 2022-10-22 07:00 | CA_ITS ---
Transthoracic Echocardiogram Patient (Last, First, Middle): Demario Chadwick A Gender: Male Date of : 1935 Age: 87 Procedure Date: 10/22/2022 Procedure Type: Transthoracic Echocardiogram [place] [facility] [place]: 175.26 cm Weight: 96.16 kg BSA: 2.12 m2 Heart Rate: bpm BP: 106 / 54 mmHg Diesel Instructor: Referring MD: Lucía Rojas MD Design Cell Engineer: Ramón Hill MD Symptoms: Acute CHF Study Quality: Technically Difficult ECG Rhythm: Ventriculary paced rhythm Conclusions: - 1. Severely reduced LV ejection fraction of 10-15% with regional wall motion abnormality consistent with ischemic cardiomyopathy with at least grade 2 diastolic dysfunction 2. [id number] aortic stenosis and mild aortic regurgitation 3. Upper limits of normal RV systolic pressure 4. Upper limits of normal ascending aortic size 5. No gross pericardial effusion Findings Procedure Information Contrast agent, definity, is being given per protocol without apparent complications. Left Ventricle Normal left ventricular cavity size. There is mildly increased left ventricular wall thickness. The left ventricular systolic function is severely decreased. The visually estimated ejection fraction is between 10 15%. There is evidence of regional wall motion abnormalities. Spectral Doppler is indicative of a pseudonormal filling pattern. E/E prime ratio is >15, consistent with elevated filling pressures. Evidence suggests grade II (moderate) diastolic dysfunction. Wall Motion Rest Echo Findings The inferior wall, inferolateral wall, the basal anterior, basal anterolateral, basal inferoseptal, and basal anteroseptal segments are hypokinetic. The apex, apical anterior, mid anterior, apical lateral, apical septum, mid anterolateral, mid inferoseptal, and mid anteroseptal segments are akinetic. Right Ventricle Normal right ventricular cavity size. There is normal right ventricular systolic function. There is a pacemaker wire seen in the right ventricle. Atria The left atrium is likely dilated. Interatrial shunt cannot be excluded. The right atrium was not well visualized. Aortic Valve There is mild calcification of the aortic valve. There is mild thickening of the aortic valve. There is mild to moderate aortic valve stenosis. There is mild aortic valve regurgitation. Mitral Valve There is mild anterior and moderate posterior mitral leaflet thickening. There is moderate mitral annular calcification. There is trace mitral valve regurgitation. There is no mitral valve stenosis. Pulmonic Valve The pulmonic valve was not well visualized. Tricuspid Valve Likely normal tricuspid valve structure and function. There is mild tricuspid valve regurgitation. Normal right atrial pressure. Great Vessels The pulmonary artery was not well visualized. Venous The inferior vena cava is normal in size and collapses greater than 50% with inspiration. Pericardium/Pleural There is no evidence of pericardial effusion. Prior Study Comparison Changes noted compared to prior study dated: 06/26/2021. LV systolic function significantly reduced Measurements 2D Linear Measurements IVSd: 1.22 0.6-0.9/0.6-1.0 cm LVIDd: 4.85 3.9-5.3/4.2-5.9 cm LVIDd Index: 2.29 2.4-3.2/2.2-3.1 cm/m2 LVIDs: 3.54 2.0-3.6 cm LVPWd: 1.21 0.7-1.1 cm Ao Root: 3.50 2.1-3.5 cm LA Diam: 3.30 2.7-3.8/3.0-4.0 cm LAIDs Index: 1.56 1.5-2.3 cm/m2 LV Mass: 282.61 67-162/88-224 g LV Mass Index: 133.31 43-95/49-115 g/m2 LVOT Diam: 2.00 3.0+(-)1.3 cm 2D Systolic Function EF 4C: 14.00 >55% EF 2C: 4.52 >55% EF BiP: 11.70 >55% Mitral Valve MV Pk E: 0.78 MV PK A: 0.89 MV Decel Time: 108.00 E/A: 0.90 E'Lateral: 3.37 E'Medial: 4.90 E/E' Med: 15.80 E/E' Lat: 23.00 PHT: 32.00 MVA PHT: 6.88 Decel [place]: 7.16 Aortic Valve AoV Pk Kiel: 1.82 AoV Mn Kiel: 1.12 AoV VTI: 0.38 AoV Pk Grad: 13.00 Aov Mn Grad: 6.00 GENEVIEVE Cont.VTI: 1.46 LVOT LVOT Pk Kiel: 0.73 LVOT Mn Kiel: 0.47 LVOT VTI: 0.18 LVOT Pk Grad: 2.00 LVOT Mn Grad: 1.00 LVOT Diam: 2.00 LVOT Area: 3.14 Diastolic Function MV Pk E: 0.78 MV Pk A: 0.89 E/A: 0.90 E'Medial: 4.90 E/E' Med: 15.80 E' Laterial: 3.37 E/E' Lat: 23.00 Right Ventricle TAPSE (mm): 24.00 TVS' Kiel: 11.00 Tricuspid Valve TR Pk Kiel: 2.93 TR Pk Grad: 34.00 RA Press: 3.00 RVSP: 37.00 Great Vessels Aorta Ao Root-2D: 3.50 2.0-3.7 cm Ao Asc: 3.60 2.1-3.4 cm Pulmonary Valve PV Pk Kiel: 0.92 Peak PV Grad: 3.00 Updated in Other Vendor System with Status of Final Ramón Hill MD electronically signed on 10/22/2022 5:13:06 PM with status of Final
--- NOTE | 2022-10-22 07:06 | PHA.MEDREC ---
Pharmacy Consult ? Medication Reconciliation Pharmacy has completed the medication reconciliation.
--- NOTE | 2022-10-22 08:41 | PC.NURSE ---
pt resting comfortably in bed. pt alert to self, aware that he is not home . reports feeling ok. he ate 90% of his breakfast. pt continues on 4L NC, continues with audible wheezing, LS clear on the right, left upper and lower lobe LS wheezing and sonorous. [place]-cath replaced on pt as it has fallen off.
[2022-10-22] MEDS: Albuterol/Iprat 2.5/0.5MG 3 ML AMPUL.NEB INHALE ×2 (08:59→17:53)
--- NOTE | 2022-10-22 09:04 | PC.NURSE ---
cardiology at bedside
[2022-10-22] MEDS: Loratadine 10 MG TABLET PO (11:30)
[2022-10-22] MEDS: Folic Acid 1 MG TABLET PO (11:30)
[2022-10-22] MEDS: Metoprolol Succinate ER 50 MG TAB.ER.24H PO (11:33)
[2022-10-22] MEDS: 0.9 % Sodium Chloride Flush 3 ML SYRINGE IVFLUSH ×2 (11:34→18:17)
[2022-10-22 11:48] LABS: Hemoglobin 12.9 g/dl (14.0-18.0); Mean Corpuscular HGB Conc 33.9 g/dl (31.0-36.0); Mean Corpuscular Hemoglobin 32.7 pg (27.0-33.0); Mean Corpuscular Volume 96.2 fL (80.0-98.0); Mean Platelet Volume 9.1 fL (9.4-12.4); Platelet Count 216 X10*3/uL (160-400); Red Blood Count 3.95 X10*6/uL (4.60-5.80); Red Cell Distribution Width 12.9 % (11.0-16.0); White Blood Count 7.9 X10*3/uL (4.8-10.8)
[2022-10-22 11:54] LABS: INTERNATIONAL NORM RATIO 1.1 (0.9-1.1); Prothrombin Time 13.5 SEC (11.1-13.3)
--- NOTE | 2022-10-22 11:54 | PC.NURSE ---
BP soft, 101/55 - informed Sammie GOMEZ, manual Bp taken,. 98/62 repeat 102/64 - order to hold lasix due to low Bp. second 22G IV placed in pts R hand, plan for heparin gtt
[2022-10-22 11:57] LABS: PTT Heparin Drip 29.6 SEC (53-77.9)
[2022-10-22] MEDS: Aspirin Enteric Coated 81 MG TABLET.DR PO (13:34)
[2022-10-22] MEDS: Heparin Sodium,Porcine/1/2NS 25,000 UNIT/250 ML IV.SOLN 10 UNIT IVCONT (13:38)
--- NOTE | 2022-10-22 13:42 | P.CONCA_ITS ---
History of Present Illness History of Present Illness Date of Service: 10/22/22 Requesting physician: Sammie Castillo Consult reason: congestive heart failure and myocardial infarction Chief complaint: Acute CHF Narrative: I was consulted to see Demario in cardiology consultation today for elevated troponins and acute respiratory failure which is suggestive of congestive heart failure. Patient is 87-year-old male with prior dementia and currently a resident of [facility]. Patient was sent from the detention due to increasing shortness of breath and suspicion for pneumonia. Patient is a poor historian history was mostly obtained from the chart. There is no history of chest discomfort reported. Patient also denies any chest discomfort although this is difficult to assess from him. Patient status post [employer] pacemaker for second-degree AV block, cardiomyopathy, paroxysmal atrial fibrillation not on oral anticoagulation due to subdural hematoma in the past. This is most likely due to falls. Patient says currently he is feeling well. He did get Lasix with no clear output recorded. His initial troponins were in 7200 range subsequently down trended to 6600 range. EKG shows paced rhythm. Review of Systems 2 Review of Systems: Yes Unobtainable due to mental status [facility] Past Medical History Medical History Subdural hematoma Dementia Cardiomyopathy Heart block Essential hypertension PAF (paroxysmal atrial fibrillation) Normally functioning cardiac pacemaker present Family History Family History Father No problems noted. Mother No problems noted. Surgical History Surgical History History of permanent cardiac pacemaker placement (~04/2019) Social History Social History Alcohol intake: never Patient Tobacco Use Status: Former Tobacco user Smoked in Last 30 Days: No Use of substances other than those prescribed or required for medical reasons: No Advance Directives: No Advance Directives Information Provided: No Meds Allergies Allergy/AdvReac Type Severity Reaction Status Date / Time No Known Allergies Allergy Verified 05/10/22 12:58 [No Known Allergies*] Active Medications: Current Medications Acetaminophen (Acetaminophen 325 Mg Tablet) 650 mg PO Q6H PRN PRN Reason: Pain, Mild (Pain Scale 1-3) Albuterol/Ipratropium (Albuterol/Iprat 2.5/0.5mg 3 Ml Ampul.Neb) 3 ml INHALE RQ4H PRN PRN Reason: Shortness of Breath/Wheezing Albuterol/Ipratropium (Albuterol/Iprat 2.5/0.5mg 3 Ml Ampul.Neb) 3 ml INHALE BID [facility] Last Admin: 10/22/22 08:59 Dose: 3 ml Aspirin (Aspirin Enteric Coated 81 Mg Tablet.Dr) 81 mg PO DAILY [facility] Last Admin: 10/22/22 13:34 Dose: 81 mg Atorvastatin Calcium (Atorvastatin Calcium 40 Mg Tablet) 40 mg PO BEDTIME RENATA Clonazepam (Clonazepam 0.5 Mg Tablet) 0.25 mg PO BEDTIME RENATA Docusate Sodium (Docusate Sodium 100 Mg Capsule) 100 mg PO DAILY PRN PRN Reason: Constipation Donepezil HCl (Donepezil Hcl 10 Mg Tablet) 10 mg PO BEDTIME RENATA Folic Acid (Folic Acid 1 Mg Tablet) 1 mg PO DAILY [facility] Last Admin: 10/22/22 11:30 Dose: 1 mg Furosemide (Furosemide 40 Mg/4 Ml Vial) 40 mg IVPUSH BID@0900,1800 [facility]; Protocol Last Admin: 10/22/22 11:54 Dose: Not Given Heparin Sodium (Porcine) (Heparin Sodium,Porcine 5,000 Unit/Ml Vial) 3,800 unit 40 unit/kg (3800 unit) IVPUSH PROTOCOL BOLUS PRN; Protocol PRN Reason: 40 unit/kg - Heparin Protocol Heparin Sodium (Porcine) (Heparin Sodium,Porcine 5,000 Unit/Ml Vial) 7,600 unit 80 unit/kg (7600 unit) IVPUSH PROTOCOL BOLUS PRN; Protocol PRN Reason: 80 unit/kg - Heparin Protocol Heparin Sodium/Sodium Chloride (Heparin Sodium,Porcine/1/2ns) 25,000 unit in 250 mls @ 0 mls/hr IVCONT .Q0M [facility]; Protocol Last Admin: 10/22/22 13:38 Dose: 10.48 units/kg/hr, 10 mls/hr Loratadine (Loratadine 10 Mg Tablet) 10 mg PO DAILY [facility] Last Admin: 10/22/22 11:30 Dose: 10 mg Metoprolol Succinate (Metoprolol Succinate Er 50 Mg Tab.Er.24h) 50 mg PO DAILY [facility]; Protocol Last Admin: 10/22/22 11:33 Dose: 50 mg Ondansetron HCl (Ondansetron Hcl 4 Mg/2 Ml Vial) 4 mg IVPUSH Q8H PRN PRN Reason: Nausea and Vomiting Psyllium Hydrophilic Mucilloid (Psyllium Seed 3.7 Gm Packet) 3.7 gm PO DAILY [facility] Last Admin: 10/22/22 11:54 Dose: Not Given Sodium Chloride (0.9 % Sodium Chloride Flush 3 Ml Syringe) 3 ml IVFLUSH QSHIFT [facility] Last Admin: 10/22/22 11:34 Dose: 3 ml Home Medications Medication Instructions Recorded Confirmed Last Taken Type cholecalciferol (vitamin D3) 50 50 mcg PO DAILY 05/12/20 10/21/22 10/21/22 History mcg (2,000 unit) capsule donepezil 10 mg tablet 10 mg PO BEDTIME 05/12/20 10/21/22 10/21/22 History metoprolol succinate 50 mg 50 mg PO DAILY 05/11/21 10/21/22 10/21/22 History tablet,extended release 24 hr atorvastatin 10 mg tablet 10 mg PO BEDTIME 05/10/22 10/21/22 10/21/22 History lisinopril 40 mg tablet 40 mg PO DAILY 05/10/22 10/21/22 10/21/22 History acetaminophen 325 mg tablet 650 mg PO Q4H PRN pain/fever 10/21/22 10/21/22 10/21/22 History amoxicillin 875 mg-potassium 1 tab PO BID 10/21/22 10/21/22 10/21/22 History clavulanate 125 mg tablet clonazepam 0.5 mg tablet 0.25 mg PO BEDTIME 10/21/22 10/21/22 10/21/22 History doxycycline hyclate 100 mg tablet 100 mg PO BID 10/21/22 10/21/22 10/21/22 History folic acid 1 mg tablet 1 mg PO DAILY 10/21/22 10/21/22 10/21/22 History ipratropium 0.5 mg-albuterol 3 mg 3 ml inhalation BID 10/21/22 10/21/22 10/21/22 History (2.5 mg base)/3 mL nebulization soln loratadine 10 mg tablet 10 mg PO DAILY 10/21/22 10/21/2223 History psyllium husk 3.4 gram/5.4 gram 1 tbsp PO DAILY 10/21/22 10/21/22 10/21/22 History oral powder (Metamucil) Physical Exam 2 Vital Signs: Vital Signs: Last Vital Signs Temp 97.8 F 10/21/22 23:05 Pulse 79 10/22/22 11:29 Resp 16 10/22/22 11:29 BP 101/55 L 10/22/22 11:29 Pulse Ox 93 10/22/22 11:29 O2 Del Method Nasal Cannula 10/22/22 11:29 O2 Flow Rate 3 10/22/22 11:29 Oxygen Flow Rate 3 10/21/22 23:03 BMI result Body Mass Index 31.1 Const: General: cooperative, comfortable, no acute distress, well developed, alert and awake Nutritional Appearance: well nourished and overweight O rientation/consciousness: patient oriented x3 HEENT: Head: Yes normocephalic and Yes atraumatic Neck: Neck: Yes trachea midline, Yes supple and Yes no JVD Resp: Effort & Inspection: normal respiratory effort Auscultation: no rales, no wheezes and diminished lung sounds Cardio: Jugular venous distension: no JVD Palpation: normal PMI Rate: r egular rate Rhythm: regular rhythm Heart sounds: S1 normal heart sound present, S2 normal heart sound present, no click, no gallops, no murmurs and no rubs GI: Auscultation: normal bowel sounds Skin: General skin exam: no rashes or lesions noted Neuro: General: patient oriented x3 and no focal motor deficits Extrem: General: Yes no clubbing, cyanosis or edema Objective Labs and Meds 10/22/22 11:40 10/22/22 05:38 Lab results: Laboratory Results - last 24 hr 10/21/22 10/21/22 10/21/22 22:58 22:59 23:09 WBC 8.5 RBC 4.05 L Hgb 12.9 L Hct 38.3 L MCV 94.6 MCH 31.9 MCHC 33.7 RDW 12.7 Plt Count 231 MPV 9.1 L Immature Gran % (Auto) 0.2 Neut % (Auto) 57.6 Lymph % (Auto) 25.3 [place] % (Auto) 12.0 H Eos % (Auto) 4.0 Baso % (Auto) 0.9 Lymph # (Auto) 2.1 [place] # (Auto) 1.0 Eos # (Auto) 0.3 Baso # (Auto) 0.1 Abs Immat Gran (auto) 0.02 Absolute Neuts (auto) 4.9 Absolute Nucleated RBC 0.000 Nucleated RBC % (auto) 0.0 PT 13.4 H INR 1.1 aPTT Heparin Protocol Sodium 137 Potassium 4.6 Chloride 109 H Carbon Dioxide 22 Anion Gap 11 L BUN 29 H Creatinine 1.02 Estim Creat Clear Calc 59.5 Estimated GFR > 60 Random Glucose 106 Lactic Acid 1.1 Calcium 8.7 Magnesium 2.0 Total Bilirubin AST ALT Alkaline Phosphatase Troponin I High Sens 7295.6 H* B-Natriuretic Peptide 680 H Total Protein Albumin Urine Color Urine Appearance Urine pH Ur Specific [place] Urine Protein Urine Glucose (UA) Urine Ketones Urine Blood Urine Nitrite Ur Leukocyte Esterase Influenza Type A (PCR) Influenza Type B (PCR) RSV RNA Qual (PCR) SARS-CoV-2 RNA (RT-PCR) 10/22/22 10/22/22 10/22/22 00:37 00:44 02:34 WBC RBC Hgb Hct MCV MCH MCHC RDW Plt Count MPV Immature Gran % (Auto) Neut % (Auto) Lymph % (Auto) [place] % (Auto) Eos % (Auto) Baso % (Auto) Lymph # (Auto) [place] # (Auto) Eos # (Auto) Baso # (Auto) Abs Immat Gran (auto) Absolute Neuts (auto) Absolute Nucleated RBC Nucleated RBC % (auto) PT INR aPTT Heparin Protocol Sodium Potassium Chloride Carbon Dioxide Anion Gap BUN Creatinine Estim Creat Clear Calc Estimated GFR Random Glucose Lactic Acid Calcium Magnesium Total Bilirubin AST ALT Alkaline Phosphatase Troponin I High Sens 6686.7 H* B-Natriuretic Peptide Total Protein Albumin Urine Color Yellow Urine Appearance Clear Urine pH 5.5 Ur Specific [place] 1.020 Urine Protein Negative Urine Glucose (UA) Negative Urine Ketones Negative Urine Blood Negative Urine Nitrite Negative Ur Leukocyte Esterase Negative Influenza Type A (PCR) NEGATIVE Influenza Type B (PCR) NEGATIVE RSV RNA Qual (PCR) NEGATIVE SARS-CoV-2 RNA (RT-PCR) NEGATIVE 10/22/22 10/22/22 05:38 11:40 WBC 8.6 7.9 RBC 4.05 L 3.95 L Hgb 13.0 L 12.9 L Hct 38.6 L 38.0 L MCV 95.3 96.2 MCH 32.1 32.7 MCHC 33.7 33.9 RDW 12.9 12.9 Plt Count 224 216 MPV 9.3 L 9.1 L Immature Gran % (Auto) 0.5 H Neut % (Auto) 61.4 Lymph % (Auto) 17.9 L [place] % (Auto) 14.9 H Eos % (Auto) 4.1 H Baso % (Auto) 1.2 Lymph # (Auto) 1.5 [place] # (Auto) 1.3 H Eos # (Auto) 0.4 Baso # (Auto) 0.1 Abs Immat Gran (auto) 0.04 H Absolute Neuts (auto) 5.3 Absolute Nucleated RBC 0.000 0.000 Nucleated RBC % (auto) 0.0 0.0 PT 13.5 H INR 1.1 aPTT Heparin Protocol 29.6 L Sodium 139 Potassium 4.0 Chloride 108 Carbon Dioxide 22 Anion Gap 13 BUN 27 H Creatinine 1.12 Estim Creat Clear Calc 54.2 Estimated GFR > 60 Random Glucose 94 Lactic Acid Calcium 9.2 Magnesium Total Bilirubin 0.8 AST 35 ALT 16 Alkaline Phosphatase 94 Troponin I High Sens B-Natriuretic Peptide Total Protein 6.2 L Albumin 3.5 Urine Color Urine Appearance Urine pH Ur Specific [place] Urine Protein Urine Glucose (UA) Urine Ketones Urine Blood Urine Nitrite Ur Leukocyte Esterase Influenza Type A (PCR) Influenza Type B (PCR) RSV RNA Qual (PCR) SARS-CoV-2 RNA (RT-PCR) EKG shows AV dual paced rhythm Imaging Radiologist's impression: Impressions Chest X-Ray 10/21/22 23:22 IMPRESSION: Thickening of the central bronchopulmonary interstitium which can be seen with a pulmonary interstitial edema or small airways process such as asthma or atypical/viral infection. Probable left basilar atelectasis. Assessment and Plan (1) Acute exacerbation of CHF (congestive heart failure): Qualifiers: Heart failure type: systolic Qualified Code(s): I50.23 - Acute on chronic systolic (congestive) heart failure Status: Acute Acute hypoxemic respiratory failure most likely due to acute heart failure. There might be a component of pneumonia as well. Continue diuresed. Strict intake and output chart needs to be pursued. Most likely ischemic etiology. Echocardiogram to assess for LV systolic function as well as diastolic function to evaluate for aortic valve. Continue supportive care and oxygen supplementation. Continue metoprolol. Switch lisinopril to valsartan with eventual plan to treat him with Entresto therapy if possible. Trend BMP and BNP tomorrow. Replace electrolytes as needed (2) NSTEMI (non-ST elevated myocardial infarction): Status: Acute Patient with elevated troponin consistent with NSTEMI. No obvious chest pain reported although this is difficult to assess. Underlying paced rhythm. High likelihood of underlying coronary artery disease given his advanced age although given his dimension advanced age will pursue conservative medical therapy. Aspirin, statins and IV heparin for 48 hours. Echocardiogram as above. Continue metoprolol therapy. Will follow with you Time Spent With Patient Time: Total time managing care of this patient today ____ minutes. Procedures Date of Service Date of Service: 10/22/22
--- NOTE | 2022-10-22 13:43 | PC.NURSE ---
pt medicated per APR, heparin started at 10ml/hr, next PTT due at 1937.
--- NOTE | 2022-10-22 18:14 | P.PNIM_ITS ---
Subjective Subjective Date of Service: 10/22/22 Interval History: seen and examined this morning awake, alert, confused no specific compalints, no chest pain Review of Systems Review of Systems: Yes all other systems are reviewed and are negative Constitutional Constitutional: Denies chills and Denies fever(s) Cardiovascular Cardiovascular: Denies chest pain, Denies palpitations and Denies dyspnea Respiratory Respiratory: Denies cough and Denies dyspnea Gastrointestinal Gastrointestinal: Denies abdominal pain Endocrine Endocrine: Denies palpitations Physical Exam 2 Vital Signs: Vital Signs: Last Vital Signs Temp 97.8 F 10/21/22 23:05 Pulse 62 10/22/22 17:54 Resp 18 10/22/22 17:54 BP 98/54 L 10/22/22 14:54 Pulse Ox 94 10/22/22 14:54 O2 Del Method Nasal Cannula 10/22/22 14:54 O2 Flow Rate 4 10/22/22 14:54 Oxygen Flow Rate 3 10/21/22 23:03 BMI result Body Mass Index 31.1 Const: General: cooperative, comfortable, no acute distress, alert and awake Nutritional Appearance: overweight Orientation/consciousness: oriented to person and oriented to place Resp: Effort & Inspection: normal respiratory effort, able to speak in complete sentences, no respiratory distress and no use of accessory muscles Cardio: Rate: regular rate GI: Inspection: No distended Palpation (GI): Soft to palpation and nontender Neuro: General: oriented to person, oriented to place, moves all extremities and CN's II-XI intact bilaterally Extrem: General: Yes no pedal edema Objective Data Active Medications Acetaminophen (Acetaminophen 325 Mg Tablet) 650 mg PO Q6H PRN PRN Reason: Pain, Mild (Pain Scale 1-3) Albuterol/Ipratropium (Albuterol/Iprat 2.5/0.5mg 3 Ml Ampul.Neb) 3 ml INHALE RQ4H PRN PRN Reason: Shortness of Breath/Wheezing Last Admin: 10/22/22 17:53 Dose: 3 ml Documented By: JULIET Albuterol/Ipratropium (Albuterol/Iprat 2.5/0.5mg 3 Ml Ampul.Neb) 3 ml INHALE BID RENATA Last Admin: 10/22/22 08:59 Dose: 3 ml Documented By: JULIET Aspirin (Aspirin Enteric Coated 81 Mg Tablet.) 81 mg PO DAILY [facility] Last Admin: 10/22/22 13:34 Dose: 81 mg Documented By: JONATHAN Atorvastatin Calcium (Atorvastatin Calcium 40 Mg Tablet) 40 mg PO BEDTIME RENATA Clonazepam (Clonazepam 0.5 Mg Tablet) 0.25 mg PO BEDTIME RENATA Docusate Sodium (Docusate Sodium 100 Mg Capsule) 100 mg PO DAILY PRN PRN Reason: Constipation Donepezil HCl (Donepezil Hcl 10 Mg Tablet) 10 mg PO BEDTIME RENATA Folic Acid (Folic Acid 1 Mg Tablet) 1 mg PO DAILY [facility] Last Admin: 10/22/22 11:30 Dose: 1 mg Documented By: EDI Furosemide (Furosemide 40 Mg/4 Ml Vial) 40 mg IVPUSH BID@0900,1800 [facility]; Protocol Last Admin: 10/22/22 11:54 Dose: Not Given Documented By: JACY Non-Admin Reason: Physician Held Med Heparin Sodium (Porcine) (Heparin Sodium,Porcine 5,000 Unit/Ml Vial) 3,800 unit 40 unit/kg (3800 unit) IVPUSH PROTOCOL BOLUS PRN; Protocol PRN Reason: 40 unit/kg - Heparin Protocol Heparin Sodium (Porcine) (Heparin Sodium,Porcine 5,000 Unit/Ml Vial) 7,600 unit 80 unit/kg (7600 unit) IVPUSH PROTOCOL BOLUS PRN; Protocol PRN Reason: 80 unit/kg - Heparin Protocol Heparin Sodium/Sodium Chloride (Heparin Sodium,Porcine/1/2ns) 25,000 unit in 250 mls @ 0 mls/hr IVCONT .Q0M [facility]; Protocol Last Admin: 10/22/22 13:38 Dose: 10.48 units/kg/hr, 10 mls/hr Documented By: JONATHAN Co-signed By: JACY Loratadine (Loratadine 10 Mg Tablet) 10 mg PO DAILY [facility] Last Admin: 10/22/22 11:30 Dose: 10 mg Documented By: EDI Metoprolol Succinate (Metoprolol Succinate Er 50 Mg Tab.Er.24h) 50 mg PO DAILY [facility]; Protocol Last Admin: 10/22/22 11:33 Dose: 50 mg Documented By: EDI Ondansetron HCl (Ondansetron Hcl 4 Mg/2 Ml Vial) 4 mg IVPUSH Q8H PRN PRN Reason: Nausea and Vomiting Psyllium Hydrophilic Mucilloid (Psyllium Seed 3.7 Gm Packet) 3.7 gm PO DAILY [facility] Last Admin: 10/22/22 11:54 Dose: Not Given Documented By: JACY Non-Admin Reason: Med Not Available Sodium Chloride (0.9 % Sodium Chloride Flush 3 Ml Syringe) 3 ml IVFLUSH QSHIFT [facility] Last Admin: 10/22/22 11:34 Dose: 3 ml Documented By: EDI Labs 10/22/22 11:40 10/22/22 05:38 Labs: Laboratory Results - last 24 hr 10/21/22 10/21/22 10/22/22 22:59 23:09 00:37 MCV 94.6 MCH 31.9 MCHC 33.7 RDW 12.7 Plt Count 231 MPV 9.1 L Immature Gran % (Auto) 0.2 Neut % (Auto) 57.6 Lymph % (Auto) 25.3 [place] % (Auto) 12.0 H Eos % (Auto) 4.0 Baso % (Auto) 0.9 Lymph # (Auto) 2.1 [place] # (Auto) 1.0 Eos # (Auto) 0.3 Baso # (Auto) 0.1 Abs Immat Gran (auto) 0.02 Absolute Neuts (auto) 4.9 Absolute Nucleated RBC 0.000 Nucleated RBC % (auto) 0.0 PT 13.4 H INR 1.1 aPTT Heparin Protocol Anion Gap 11 L Estim Creat Clear Calc 59.5 Estimated GFR > 60 Random Glucose 106 Lactic Acid 1.1 Calcium 8.7 Magnesium 2.0 Total Bilirubin AST ALT Alkaline Phosphatase B-Natriuretic Peptide 680 H Total Protein Albumin Urine Color Yellow Urine Appearance Clear Urine pH 5.5 Ur Specific [place] 1.020 Urine Protein Negative Urine Glucose (UA) Negative Urine Ketones Negative Urine Blood Negative Urine Nitrite Negative Ur Leukocyte Esterase Negative Influenza Type A (PCR) Influenza Type B (PCR) RSV RNA Qual (PCR) SARS-CoV-2 RNA (RT-PCR) 10/22/22 10/22/22 10/22/22 00:44 05:38 11:40 MCV 95.3 96.2 MCH 32.1 32.7 MCHC 33.7 33.9 RDW 12.9 12.9 Plt Count 224 216 MPV 9.3 L 9.1 L Immature Gran % (Auto) 0.5 H Neut % (Auto) 61.4 Lymph % (Auto) 17.9 L [place] % (Auto) 14.9 H Eos % (Auto) 4.1 H Baso % (Auto) 1.2 Lymph # (Auto) 1.5 [place] # (Auto) 1.3 H Eos # (Auto) 0.4 Baso # (Auto) 0.1 Abs Immat Gran (auto) 0.04 H Absolute Neuts (auto) 5.3 Absolute Nucleated RBC 0.000 0.000 Nucleated RBC % (auto) 0.0 0.0 PT 13.5 H INR 1.1 aPTT Heparin Protocol 29.6 L Anion Gap 13 Estim Creat Clear Calc 54.2 Estimated GFR > 60 Random Glucose 94 Lactic Acid Calcium 9.2 Magnesium Total Bilirubin 0.8 AST 35 ALT 16 Alkaline Phosphatase 94 B-Natriuretic Peptide Total Protein 6.2 L Albumin 3.5 Urine Color Urine Appearance Urine pH Ur Specific [place] Urine Protein Urine Glucose (UA) Urine Ketones Urine Blood Urine Nitrite Ur Leukocyte Esterase Influenza Type A (PCR) NEGATIVE Influenza Type B (PCR) NEGATIVE RSV RNA Qual (PCR) NEGATIVE SARS-CoV-2 RNA (RT-PCR) NEGATIVE Assessment and Plan (1) NSTEMI (non-ST elevated myocardial infarction): Status: Acute (2) Acute exacerbation of CHF (congestive heart failure): Status: Acute Plan 87-year-old male past medical history of dementia, paroxysmal AFib, history of heart block, cardiomyopathy with reduced ejection fraction, comes into the hospital with shortness of breath found to be in CHF exacerbation # acute systolic CHF - patient has a history of CHF with reduced ejection fraction, last echo done in 2021 shows an ejection fraction of 40-45% - comes in with hypoxia, cough, has lower extremity edema - elevated BNP - will treat with IV Lasix, strict I&O, daily weight, low-sodium diet - echo showing severely reduced EF 10-15% with regional wma s/w ischemic cardiomyopathy - cardiology following - change lisinopril to valsartan when bp improves # acute on chronic respiratory failure - on baseline 2 L of oxygen now requiring 4 L - likely secondary to CHF - no evidence of pneumonia - monitor respiratory status - titrate oxygen down to 2 L as tolerated - hold antibiotics # NSTEMI - has elevated troponin - patient denies any chest pain, no EKG changes suggestive of ACS - seen by cardiology, high likelihood of underlying CAD, recommended heparin for 48 despite h/o subdural hematoma - continue metoprolol - start aspirin, increase statin # dementia - continue donepezil # hypertension - soft readings - hold antihypertensives DVT prophylaxis: Heparin attending - dr. Johns patient requires ongoing hospital stay for further management and monitoring of NSTEMI and CHF Time Spent With Patient Time: Total time managing care of this patient today ____ minutes. Quality Stroke Does the patient have a stroke diagnosis?: No VTE Prior VTE?: No VTE Risk Level:: Medical - moderate - high VTE Device Contraindication: Treatment Not Indicated VTE Drug Contraindication: N/A - Med Ordered
[2022-10-22 20:20] LABS: PTT Heparin Drip 61.1 SEC (53-77.9)
[2022-10-22] MEDS: clonazePAM 0.5 MG TABLET 0.25 MG PO (22:54)
[2022-10-22] MEDS: Donepezil HCl 10 MG TABLET PO (22:54)
[2022-10-22] MEDS: Atorvastatin Calcium 40 MG TABLET PO (22:55)
--- NOTE | 2022-10-22 23:08 | PC.NURSE ---
Pt arrived to unit from ED approx 2130 in bed. Oriented to person, [place] and month speech clear. Pt laughs and jokes frequently difficult to assess thoroughly. Denies headache, dizziness or vision changes pupils PERRL. Denies pain/discomfort. DO to command 5/5 sensation intact. +pp bilat no edema noted. LS dim upper airway wheezes, denies SOB or CP on 4L oxygen via NC, Paced on tele. BS+X4 abdomen soft non-tender denies nausea/vomiting. [place] cath placed pt concerned about incontinence. Pleasant an cooperative. High fall risk alarm for safety. Vital signs stable. Heparin drip infusing per order next PTT ordered for 0400, no bleeding noted. Bed in lowest locked position alarm for safety. Will continue to monitor and report changes
[2022-10-23] VITALS (9 sets, daily range): BP systolic 101–122; BP diastolic 45–59; PULSE 61–66; RESP 18–24; TEMP 36.3–36.9; O2SAT 90–93
[2022-10-23] MEDS: 0.9 % Sodium Chloride Flush 3 ML SYRINGE IVFLUSH ×4 (01:36→19:57)
[2022-10-23] MEDS: Albuterol/Iprat 2.5/0.5MG 3 ML AMPUL.NEB INHALE ×3 (01:41→19:36)
[2022-10-23 04:17] LABS: Hematocrit 38.6 % (42.0-52.0); Hemoglobin 13.1 g/dl (14.0-18.0); Mean Corpuscular HGB Conc 33.9 g/dl (31.0-36.0); Mean Corpuscular Hemoglobin 31.8 pg (27.0-33.0); Mean Corpuscular Volume 93.7 fL (80.0-98.0); Platelet Count 208 X10*3/uL (160-400); Red Blood Count 4.12 X10*6/uL (4.60-5.80); Red Cell Distribution Width 12.7 % (11.0-16.0); White Blood Count 7.8 X10*3/uL (4.8-10.8)
[2022-10-23 04:26] LABS: PTT Heparin Drip 81.3 SEC (53-77.9)
[2022-10-23 04:30] LABS: Anion Gap 12 (12-20); Blood Urea Nitrogen 22 mg/dL (9-16); Carbon Dioxide 22 mmol/L (22-29); Chloride 108 mmol/L (96-108); Creatinine Clr Calc Pharmacy 61.6; Estimated Glomerular Filt Rate > 60; Glucose Random 97 mg/dL (60-115); Sodium 138 mmol/L (135-145)
[2022-10-23 04:37] LABS: B Type Natriuretic Peptide 692 pg/mL (<100)
[2022-10-23 06:40] LABS: INTERNATIONAL NORM RATIO 1.1 (0.9-1.1); Prothrombin Time 13.6 SEC (11.1-13.3)
[2022-10-23] MEDS: Psyllium seed 3.7 GM PACKET PO (09:29)
[2022-10-23] MEDS: Metoprolol Succinate ER 50 MG TAB.ER.24H PO (09:29)
[2022-10-23] MEDS: Aspirin Enteric Coated 81 MG TABLET.DR PO (09:29)
[2022-10-23] MEDS: Folic Acid 1 MG TABLET PO (09:29)
[2022-10-23] MEDS: Furosemide 40 MG/4 ML VIAL IVPUSH (09:29)
[2022-10-23] MEDS: Loratadine 10 MG TABLET PO (09:29)
[2022-10-23 11:10] LABS: PTT Heparin Drip 58.5 SEC (53-77.9)
--- NOTE | 2022-10-23 12:39 | PM.PNCARD ---
Subjective Subjective Date of Service: 10/23/22 Principal diagnosis: Acute MT, CHF Interval history: Patient appears more confused today. Complains of some belly discomfort. Otherwise he has a stander large bowel movement. Denies any shortness of breath or chest discomfort. Echocardiogram shows marked reduction LV systolic function. Review of Systems Review of Systems Yes Unobtainable due to mental status Reports confusion Psychiatric: Reports confusion Physical Exam Vital Signs: Last Vital Signs Temp 97.3 F 10/23/22 11:26 Pulse 64 10/23/22 11:26 Resp 18 10/23/22 11:26 BP 108/50 L 10/23/22 11:26 Pulse Ox 92 10/23/22 11:26 O2 Del Method Nasal Cannula 10/23/22 11:26 O2 Flow Rate 2 10/23/22 07:06 Oxygen Flow Rate 3 10/21/22 23:03 BMI result Body Mass Index 31.1 Const General: cooperative, comfortable, no acute distress, well developed, alert, awake and confusion Nutritional Appearance: well nourished and overweight Orientation/consciousness: confusion Neck Neck: Yes trachea midline, Yes supple and Yes no JVD Resp Effort & Inspection: normal respiratory effort Auscultation: no rales, no wheezes and diminished lung sounds Cardio Jugular venous distension: no JVD Palpation: normal PMI Rate: regular rate Rhythm: regular rhythm Heart sounds: S1 normal heart sound present, S2 normal heart sound present, no click, no gallops, no murmurs and no rubs GI Auscultation: normal bowel sounds Skin General skin exam: no rashes or lesions noted Neuro General: no focal motor deficits and confusion Extrem General: Yes no clubbing, cyanosis or edema Objective Labs and Meds 10/23/22 04:08 10/23/22 04:08 Lab results: Laboratory Results - last 24 hr 10/22/22 10/23/22 10/23/22 20:02 04:08 06:01 WBC 7.8 RBC 4.12 L Hgb 13.1 L Hct 38.6 L MCV 93.7 MCH 31.8 MCHC 33.9 RDW 12.7 Plt Count 208 MPV 9.0 L Absolute Nucleated RBC 0.000 Nucleated RBC % (auto) 0.0 PT 13.6 H INR 1.1 aPTT Heparin Protocol 61.1 D 81.3 H D Sodium 138 Potassium 4.0 Chloride 108 Carbon Dioxide 22 Anion Gap 12 BUN 22 H Creatinine 0.98 Estim Creat Clear Calc 61.6 Estimated GFR > 60 Random Glucose 97 Calcium 9.0 B-Natriuretic Peptide 692 H 10/23/22 10:44 WBC RBC Hgb Hct MCV MCH MCHC RDW Plt Count MPV Absolute Nucleated RBC Nucleated RBC % (auto) PT INR aPTT Heparin Protocol 58.5 D Sodium Potassium Chloride Carbon Dioxide Anion Gap BUN Creatinine Estim Creat Clear Calc Estimated GFR Random Glucose Calcium B-Natriuretic Peptide Progress Note: A&P Assessment and plan (1) NSTEMI (non-ST elevated myocardial infarction): Status: Acute Assessment and Plan: Patient with NSTEMI with significant reduction LV systolic function. Overall prognosis is guarded and limited in the future. Management will be conservative given his advanced age as well as cognitive status. His altered mental status appears to be probably related to his cardiovascular issues and also acute respiratory failure. Continue medical management. Continue IV heparin for another 24 hours. Low-dose aspirin as well as high-intensity statin therapy. Continue metoprolol therapy. Can switch to p.o. Lasix 40 mg, does not appear overtly in heart failure. Incentive spirometry out of bed to chair. (2) Acute exacerbation of CHF (congestive heart failure): Status: Acute Assessment and Plan: Ischemic heart failure related to acute MT. Clinically does appear to be in overt heart failure at this point time although requires oxygen supplementation. Consider out of bed to chair incentive spirometry. Continue p.o. Lasix. Also can start afterload reduction with low does losartan if blood pressure loss. Can start on 12.5 mg b.i.d.. Overall prognosis is guarded. Will follow with you Time Spent With Patient Time: Total time managing care of this patient today ____ minutes. Progress Note: Quality Stroke Does the patient have a stroke diagnosis?: No Procedures Date of Service Date of Service: 10/23/22
--- NOTE | 2022-10-23 12:44 | P.PNIM_ITS ---
Subjective Subjective Date of Service: 10/23/22 Interval History: seen and examined this morning follow up for NSTEMI, CHF confused, unable to provide much history - denies sob or chest pain but otherwise difficult to obtain full ROS Neurologic Neurologic: Reports confusion Psychiatric Psychiatric: Reports confusion Physical Exam 2 Vital Signs: Vital Signs: Last Vital Signs Temp 97.3 F 10/23/22 11:26 Pulse 64 10/23/22 11:26 Resp 18 10/23/22 11:26 BP 108/50 L 10/23/22 11:26 Pulse Ox 92 10/23/22 11:26 O2 Del Method Nasal Cannula 10/23/22 11:26 O2 Flow Rate 2 10/23/22 07:06 Oxygen Flow Rate 3 10/21/22 23:03 BMI result Body Mass Index 31.1 Const: General: cooperative, comfortable, no acute distress, alert, awake and confusion Nutritional Appearance: overweight Orientation/consciousness: c onfusion Resp: Effort & Inspection: normal respiratory effort, able to speak in complete sentences, no respiratory distress and no use of accessory muscles A uscultation: wheezes Cardio: Rate: regular rate GI: Inspection: No distended Palpation (GI): Soft to palpation and nontender Neuro: Other: grossly nonfocal General: moves all extremities, CN's II-XI intact bilaterally and confusion Extrem: General: Yes no pedal edema Objective Data Active Medications Acetaminophen (Acetaminophen 325 Mg Tablet) 650 mg PO Q6H PRN PRN Reason: Pain, Mild (Pain Scale 1-3) Albuterol/Ipratropium (Albuterol/Iprat 2.5/0.5mg 3 Ml Ampul.Neb) 3 ml INHALE RQ4H PRN PRN Reason: Shortness of Breath/Wheezing Last Admin: 10/23/22 01:41 Dose: 3 ml Documented By: AUSTIN Albuterol/Ipratropium (Albuterol/Iprat 2.5/0.5mg 3 Ml Ampul.Neb) 3 ml INHALE BID [facility] Last Admin: 10/23/22 08:04 Dose: 3 ml Documented By: RASHIDA Aspirin (Aspirin Enteric Coated 81 Mg Tablet.) 81 mg PO DAILY [facility] Last Admin: 10/23/22 09:29 Dose: 81 mg Documented By: BRANDON Atorvastatin Calcium (Atorvastatin Calcium 40 Mg Tablet) 40 mg PO BEDTIME [facility] Last Admin: 10/22/22 22:55 Dose: 40 mg Documented By: VICKEY Clonazepam (Clonazepam 0.5 Mg Tablet) 0.25 mg PO BEDTIME [facility] Last Admin: 10/22/22 22:54 Dose: 0.25 mg Documented By: VICKEY Docusate Sodium (Docusate Sodium 100 Mg Capsule) 100 mg PO DAILY PRN PRN Reason: Constipation Donepezil HCl (Donepezil Hcl 10 Mg Tablet) 10 mg PO BEDTIME [facility] Last Admin: 10/22/22 22:54 Dose: 10 mg Documented By: VICKEY Folic Acid (Folic Acid 1 Mg Tablet) 1 mg PO DAILY [facility] Last Admin: 10/23/22 09:29 Dose: 1 mg Documented By: BRANDON Furosemide (Furosemide 40 Mg/4 Ml Vial) 40 mg IVPUSH BID@0900,1800 [facility]; Protocol Last Admin: 10/23/22 09:29 Dose: 40 mg Documented By: BRANDON Heparin Sodium (Porcine) (Heparin Sodium,Porcine 5,000 Unit/Ml Vial) 3,800 unit 40 unit/kg (3800 unit) IVPUSH PROTOCOL BOLUS PRN; Protocol PRN Reason: 40 unit/kg - Heparin Protocol Heparin Sodium (Porcine) (Heparin Sodium,Porcine 5,000 Unit/Ml Vial) 7,600 unit 80 unit/kg (7600 unit) IVPUSH PROTOCOL BOLUS PRN; Protocol PRN Reason: 80 unit/kg - Heparin Protocol Heparin Sodium/Sodium Chloride (Heparin Sodium,Porcine/1/2ns) 25,000 unit in 250 mls @ 0 mls/hr IVCONT .Q0M [facility]; Protocol Stop: 10/24/22 12:59 Last Titration: 10/23/22 11:29 Dose: 8.48 units/kg/hr, 8.09 mls/hr Documented By: BRANDON Co-signed By: DEAN Loratadine (Loratadine 10 Mg Tablet) 10 mg PO DAILY [facility] Last Admin: 10/23/22 09:29 Dose: 10 mg Documented By: BRANDON Metoprolol Succinate (Metoprolol Succinate Er 50 Mg Tab.Er.24h) 50 mg PO DAILY [facility]; Protocol Last Admin: 10/23/22 09:29 Dose: 50 mg Documented By: BRANDON Ondansetron HCl (Ondansetron Hcl 4 Mg/2 Ml Vial) 4 mg IVPUSH Q8H PRN PRN Reason: Nausea and Vomiting Psyllium Hydrophilic Mucilloid (Psyllium Seed 3.7 Gm Packet) 3.7 gm PO DAILY [facility] Last Admin: 10/23/22 09:29 Dose: 3.7 gm Documented By: BRANDON Sodium Chloride (0.9 % Sodium Chloride Flush 3 Ml Syringe) 3 ml IVFLUSH QSHIFT [facility] Last Admin: 10/23/22 09:28 Dose: 3 ml Documented By: BRANDON Labs 10/23/22 04:08 10/23/22 04:08 Labs: Laboratory Results - last 24 hr 10/22/22 10/23/22 10/23/22 20:02 04:08 06:01 MCV 93.7 MCH 31.8 MCHC 33.9 RDW 12.7 Plt Count 208 MPV 9.0 L Absolute Nucleated RBC 0.000 Nucleated RBC % (auto) 0.0 PT 13.6 H INR 1.1 aPTT Heparin Protocol 61.1 D 81.3 H D Anion Gap 12 Estim Creat Clear Calc 61.6 Estimated GFR > 60 Random Glucose 97 Calcium 9.0 B-Natriuretic Peptide 692 H 10/23/22 10:44 MCV MCH MCHC RDW Plt Count MPV Absolute Nucleated RBC Nucleated RBC % (auto) PT INR aPTT Heparin Protocol 58.5 D Anion Gap Estim Creat Clear Calc Estimated GFR Random Glucose Calcium B-Natriuretic Peptide Microbiology Microbiology Results: Microbiology 10/21/22 23:09 Blood Culture - Preliminary Blood - Venous No growth after 24 hours. 10/21/22 23:09 Blood Culture - Preliminary Blood - Venous No growth after 24 hours. Assessment and Plan (1) NSTEMI (non-ST elevated myocardial infarction): Status: Acute (2) Acute and chronic respiratory failure with hypoxia: Status: Acute (3) Acute exacerbation of CHF (congestive heart failure): Status: Acute (4) Dementia: Status: Acute Plan This is an 87-year-old male with past medical history of dementia, paroxysmal AFib, history of heart block, cardiomyopathy with reduced ejection fraction, comes into the hospital with shortness of breath found to have NSTEMI acute on chronic hypoxemic respiratory failure likely secondary to CHF Covid, flu, RSV negative back on baseline 2L NC acute systolic CHF patient has a history of CHF with reduced ejection fraction, last echo done in 2021 shows an ejection fraction of 40-45% repeat echo showing severely reduced EF 10-15% with regional wma s/w ischemic cardiomyopathy initially started on IV lasix, will change to po cardiology following - medical management given advanced age and cognitive status; overall poor prognosis change lisinopril to valsartan when bp improves NSTEMI significantly elevated troponin patient denies any chest pain ECHO as above seen by cardiology, high likelihood of underlying CAD, plan for 48 hours of heparin continue metoprolol, start aspirin, increase statin acute metabolic encephalopathy with underlying dementia likely r/t acute MD and new environment reorientation strategies dementia continue donepezil hypertension soft readings hold antihypertensives DVT prophylaxis: Heparin attending - dr. Bazan HCP - sister Lyly updated, prognosis discussed patient requires ongoing hospital stay for further management and monitoring of NSTEMI and CHF Time Spent With Patient Time: Total time managing care of this patient today ____ minutes. Quality Stroke Does the patient have a stroke diagnosis?: No VTE Prior VTE?: No VTE Risk Level:: Medical - moderate - high VTE Device Contraindication: Treatment Not Indicated VTE Drug Contraindication: N/A - Med Ordered
--- NOTE | 2022-10-23 13:14 | MHC.CM.PN ---
Pt LTC resident of [facility]. Met w/Lyly Horne (sister); she indicates the D/C plan is for him to return to [facility] for LTC needs when stable per MD. CM requested Lyly to please bring in HCP document 10/24/22 for hospital to make a copy; Lyly stated she has this document and that she is the HCP. Lyly agreed to bring in HCP document tomorrow. CM to follow.
[2022-10-23] MEDS: Heparin Sodium,Porcine/1/2NS 25,000 UNIT/250 ML IV.SOLN 8.09 UNIT IVCONT (16:51)
[2022-10-23 18:08] LABS: PTT Heparin Drip 49.2 SEC (53-77.9)
[2022-10-23] MEDS: Heparin Sodium,Porcine 5,000 UNIT/ML VIAL 3800 UNIT IVPUSH (18:42)
[2022-10-23] MEDS: Donepezil HCl 10 MG TABLET PO (19:55)
[2022-10-23] MEDS: Atorvastatin Calcium 40 MG TABLET PO (19:55)
[2022-10-23] MEDS: clonazePAM 0.5 MG TABLET 0.25 MG PO (19:56)
[2022-10-23] MEDS: Acetaminophen 325 MG TABLET 650 MG PO (19:57)
[2022-10-24] VITALS (8 sets, daily range): BP systolic 100–120; BP diastolic 52–59; PULSE 60–70; RESP 18–24; TEMP 36.1–36.7; O2SAT 80–96
[2022-10-24 01:10] LABS: PTT Heparin Drip 123.2 SEC (53-77.9)
[2022-10-24 01:19] LABS: Prolactin 10.7 ng/mL (2.0-18.0)
[2022-10-24 02:27] LABS: PTT Heparin Drip 71.7 SEC (53-77.9)
[2022-10-24 08:32] LABS: Hematocrit 38.4 % (42.0-52.0); Hemoglobin 13.1 g/dl (14.0-18.0); Mean Corpuscular HGB Conc 34.1 g/dl (31.0-36.0); Mean Corpuscular Volume 93.7 fL (80.0-98.0); Mean Platelet Volume 9.1 fL (9.4-12.4); Platelet Count 219 X10*3/uL (160-400); Red Cell Distribution Width 12.7 % (11.0-16.0); White Blood Count 7.3 X10*3/uL (4.8-10.8)
[2022-10-24] MEDS: Albuterol/Iprat 2.5/0.5MG 3 ML AMPUL.NEB INHALE ×2 (08:36→19:32)
[2022-10-24 08:41] LABS: PTT Heparin Drip 44.2 SEC (53-77.9)
[2022-10-24 08:53] LABS: Anion Gap 12 (12-20); Blood Urea Nitrogen 23 mg/dL (9-16); Calcium 8.7 mg/dL (8.4-10.2); Carbon Dioxide 23 mmol/L (22-29); Chloride 107 mmol/L (96-108); Creatinine Clr Calc Pharmacy 70.2; Estimated Glomerular Filt Rate > 60; Glucose Random 97 mg/dL (60-115); Sodium 138 mmol/L (135-145)
[2022-10-24] MEDS: 0.9 % Sodium Chloride Flush 3 ML SYRINGE IVFLUSH ×2 (10:01→17:35)
[2022-10-24] MEDS: Aspirin Enteric Coated 81 MG TABLET.DR PO (10:01)
[2022-10-24] MEDS: Metoprolol Succinate ER 50 MG TAB.ER.24H PO (10:01)
[2022-10-24] MEDS: Loratadine 10 MG TABLET PO (10:02)
[2022-10-24] MEDS: Folic Acid 1 MG TABLET PO (10:02)
[2022-10-24] MEDS: Psyllium seed 3.7 GM PACKET PO (10:02)
[2022-10-24] MEDS: Furosemide 40 MG TABLET PO (10:04)
[2022-10-24] MEDS: Heparin Sodium,Porcine 5,000 UNIT/ML VIAL 3800 UNIT IVPUSH (10:08)
--- NOTE | 2022-10-24 12:23 | PM.PNCARD ---
Subjective Subjective Date of Service: 10/24/22 Principal diagnosis: Acute IL, CHF Interval history: Patient appears more alert. However still convert very confused. Denies any chest pain or shortness of breath. Out of bed to chair today. Hemodynamically stable. Review of Systems Review of Systems Yes Unobtainable due to mental status Reports confusion Psychiatric: Reports confusion Physical Exam Vital Signs: Last Vital Signs Temp 97.0 F 10/24/22 08:00 Pulse 67 10/24/22 08:38 Resp 18 10/24/22 08:38 BP 100/58 L 10/24/22 08:00 Pulse Ox 93 10/24/22 08:00 O2 Del Method Nasal Cannula 10/24/22 08:00 O2 Flow Rate 2.5 10/24/22 08:00 Oxygen Flow Rate 3 10/21/22 23:03 BMI result Body Mass Index 31.1 Const General: cooperative, comfortable, no acute distress, well developed, alert, awake and confusion Nutritional Appearance: well nourished and overweight Orientation/consciousness: confusion Neck Neck: Yes trachea midline, Yes supple and Yes no JVD Resp Effort & Inspection: normal respiratory effort Auscultation: no rales, no wheezes and diminished lung sounds Cardio Jugular venous distension: no JVD Palpation: normal PMI Rate: regular rate Rhythm: regular rhythm Heart sounds: S1 normal heart sound present, S2 normal heart sound present, no click, no gallops, Murmur heart sound present systolic and no rubs GI Auscultation: normal bowel sounds Skin General skin exam: no rashes or lesions noted Neuro General: no focal motor deficits and confusion Extrem General: Yes no clubbing, cyanosis or edema Objective Labs and Meds 10/24/22 08:21 10/24/22 08:21 Lab results: Laboratory Results - last 24 hr 10/22/22 10/23/22 10/24/22 02:34 17:50 00:42 WBC RBC Hgb Hct MCV MCH MCHC RDW Plt Count MPV Absolute Nucleated RBC Nucleated RBC % (auto) aPTT Heparin Protocol 49.2 L 123.2 H* D Sodium Potassium Chloride Carbon Dioxide Anion Gap BUN Creatinine Estim Creat Clear Calc Estimated GFR Random Glucose Calcium Prolactin 10.7 10/24/22 10/24/22 02:08 08:21 WBC 7.3 RBC 4.10 L Hgb 13.1 L Hct 38.4 L MCV 93.7 MCH 32.0 MCHC 34.1 RDW 12.7 Plt Count 219 MPV 9.1 L Absolute Nucleated RBC 0.000 Nucleated RBC % (auto) 0.0 aPTT Heparin Protocol 71.7 D 44.2 L D Sodium 138 Potassium 4.0 Chloride 107 Carbon Dioxide 23 Anion Gap 12 BUN 23 H Creatinine 0.86 Estim Creat Clear Calc 70.2 Estimated GFR > 60 Random Glucose 97 Calcium 8.7 Prolactin Progress Note: A&P Assessment and plan (1) NSTEMI (non-ST elevated myocardial infarction): Status: Acute Assessment and Plan: Acute IL with significant reduction LV ejection fraction. Clinically without any symptoms. Complete course of IV heparin has been provided. Low-dose aspirin high-intensity statin therapy. Continue metoprolol. Blood pressure is soft and despite severe LV systolic dysfunction would avoid losartan therapy. Conservative medical therapy to be pursued. If patient remains stable can be discharged home to long term facility tomorrow. High risk for rehospitalization and that in the near future. Conservative medical management who pursued. This finding was discussed with patient's family member. Will sign of the case. Thank you for allowing me to partake in his care Time Spent With Patient Time: Total time managing care of this patient today ____ minutes. Progress Note: Quality Stroke Does the patient have a stroke diagnosis?: No Procedures Date of Service Date of Service: 10/24/22
--- NOTE | 2022-10-24 14:10 | P.PNIM_ITS ---
Subjective Subjective Date of Service: 10/24/22 Interval History: seen and examined this morning follow up for CHF, NSTEMI awake, alert, confused, thinks he is at the [facility] denies sob or chest pain but poor historian Physical Exam 2 Vital Signs: Vital Signs: Last Vital Signs Temp 97.0 F 10/24/22 12:00 Pulse 62 10/24/22 12:00 Resp 20 10/24/22 12:00 BP 101/52 L 10/24/22 12:00 Pulse Ox 95 10/24/22 12:00 O2 Del Method Nasal Cannula 10/24/22 12:00 O2 Flow Rate 2.5 10/24/22 12:00 Oxygen Flow Rate 3 10/21/22 23:03 BMI result Body Mass Index 31.1 Const: General: cooperative, comfortable, no acute distress, alert and awake Nutritional Appearance: overweight Orientation/consciousness: oriented to person Resp: Effort & Inspection: normal respiratory effort, able to speak in complete sentences, no respiratory distress and no use of accessory muscles Cardio: Rate: regular rate GI: Inspection: No distended Palpation (GI): Soft to palpation and nontender Neuro: Other: grossly nonfocal General: oriented to person, moves all extremities and CN's II-XI intact bilaterally Extrem: General: Yes no pedal edema Objective Data Active Medications Acetaminophen (Acetaminophen 325 Mg Tablet) 650 mg PO Q6H PRN PRN Reason: Pain, Mild (Pain Scale 1-3) Last Admin: 10/23/22 19:57 Dose: 650 mg Documented By: TAMMIE Albuterol/Ipratropium (Albuterol/Iprat 2.5/0.5mg 3 Ml Ampul.Neb) 3 ml INHALE RQ4H PRN PRN Reason: Shortness of Breath/Wheezing Last Admin: 10/23/22 01:41 Dose: 3 ml Documented By: AUSTIN Albuterol/Ipratropium (Albuterol/Iprat 2.5/0.5mg 3 Ml Ampul.Neb) 3 ml INHALE BID [facility] Last Admin: 10/24/22 08:36 Dose: 3 ml Documented By: JULIET Aspirin (Aspirin Enteric Coated 81 Mg Tablet.) 81 mg PO DAILY [facility] Last Admin: 10/24/22 10:01 Dose: 81 mg Documented By: BRANDON Atorvastatin Calcium (Atorvastatin Calcium 40 Mg Tablet) 40 mg PO BEDTIME [facility] Last Admin: 10/23/22 19:55 Dose: 40 mg Documented By: TAMMIE Clonazepam (Clonazepam 0.5 Mg Tablet) 0.25 mg PO BEDTIME [facility] Last Admin: 10/23/22 19:56 Dose: 0.25 mg Documented By: TAMMIE Docusate Sodium (Docusate Sodium 100 Mg Capsule) 100 mg PO DAILY PRN PRN Reason: Constipation Donepezil HCl (Donepezil Hcl 10 Mg Tablet) 10 mg PO BEDTIME [facility] Last Admin: 10/23/22 19:55 Dose: 10 mg Documented By: TAMMIE Folic Acid (Folic Acid 1 Mg Tablet) 1 mg PO DAILY [facility] Last Admin: 10/24/22 10:02 Dose: 1 mg Documented By: BRANDON Furosemide (Furosemide 40 Mg Tablet) 40 mg PO DAILY [facility]; Protocol Last Admin: 10/24/22 10:04 Dose: 40 mg Documented By: BRANDON Heparin Sodium (Porcine) (Heparin Sodium,Porcine 5,000 Unit/Ml Vial) 3,800 unit 40 unit/kg (3800 unit) IVPUSH PROTOCOL BOLUS PRN; Protocol PRN Reason: 40 unit/kg - Heparin Protocol Last Admin: 10/24/22 10:08 Dose: 3,800 unit Documented By: BRANDON Heparin Sodium (Porcine) (Heparin Sodium,Porcine 5,000 Unit/Ml Vial) 7,600 unit 80 unit/kg (7600 unit) IVPUSH PROTOCOL BOLUS PRN; Protocol PRN Reason: 80 unit/kg - Heparin Protocol Loratadine (Loratadine 10 Mg Tablet) 10 mg PO DAILY [facility] Last Admin: 10/24/22 10:02 Dose: 10 mg Documented By: BRANDON Metoprolol Succinate (Metoprolol Succinate Er 50 Mg Tab.Er.24h) 50 mg PO DAILY [facility]; Protocol Last Admin: 10/24/22 10:01 Dose: 50 mg Documented By: BRANDON Ondansetron HCl (Ondansetron Hcl 4 Mg/2 Ml Vial) 4 mg IVPUSH Q8H PRN PRN Reason: Nausea and Vomiting Psyllium Hydrophilic Mucilloid (Psyllium Seed 3.7 Gm Packet) 3.7 gm PO DAILY [facility] Last Admin: 10/24/22 10:02 Dose: 3.7 gm Documented By: BRANDON Sodium Chloride (0.9 % Sodium Chloride Flush 3 Ml Syringe) 3 ml IVFLUSH QSHIFT [facility] Last Admin: 10/24/22 10:01 Dose: 3 ml Documented By: BRANDON Labs 10/24/22 08:21 10/24/22 08:21 Labs: Laboratory Results - last 24 hr 10/22/22 10/23/22 10/24/22 02:34 17:50 00:42 MCV MCH MCHC RDW Plt Count MPV Absolute Nucleated RBC Nucleated RBC % (auto) aPTT Heparin Protocol 49.2 L 123.2 H* D Anion Gap Estim Creat Clear Calc Estimated GFR Random Glucose Calcium Prolactin 10.7 10/24/22 10/24/22 02:08 08:21 MCV 93.7 MCH 32.0 MCHC 34.1 RDW 12.7 Plt Count 219 MPV 9.1 L Absolute Nucleated RBC 0.000 Nucleated RBC % (auto) 0.0 aPTT Heparin Protocol 71.7 D 44.2 L D Anion Gap 12 Estim Creat Clear Calc 70.2 Estimated GFR > 60 Random Glucose 97 Calcium 8.7 Prolactin Microbiology Microbiology Results: Microbiology 10/21/22 23:09 Blood Culture - Preliminary Blood - Venous No growth after 48 hours. 10/21/22 23:09 Blood Culture - Preliminary Blood - Venous No growth after 48 hours. Assessment and Plan (1) NSTEMI (non-ST elevated myocardial infarction): Status: Acute (2) Acute exacerbation of CHF (congestive heart failure): Status: Acute (3) Dementia: Status: Acute Plan This is an 87-year-old male with past medical history of dementia, paroxysmal AFib, history of heart block, cardiomyopathy with reduced ejection fraction, comes into the hospital with shortness of breath found to have NSTEMI acute on chronic hypoxemic respiratory failure likely secondary to CHF Covid, flu, RSV negative back on baseline 2L NC acute systolic CHF patient has a history of CHF with reduced ejection fraction, last echo done in 2021 shows an ejection fraction of 40-45% repeat echo showing severely reduced EF 10-15% with regional wma c/w ischemic cardiomyopathy initially started on IV lasix, will change to po cardiology following - medical management given advanced age and cognitive status; overall poor prognosis change lisinopril to valsartan when bp improves NSTEMI significantly elevated troponin patient denies any chest pain ECHO as above seen by cardiology, high likelihood of underlying CAD, plan for 48 hours of heparin continue metoprolol, start aspirin, increase statin medical management as above acute metabolic encephalopathy with underlying dementia. likely r/t acute NH and new environment reorientation strategies dementia continue donepezil hypertension bp soft continue bb as bp allows and start valsartan in place of lisinopril if bp allows DVT prophylaxis: Heparin attending - dr. varela HCP - sister Lyly updated, prognosis discussed patient requires ongoing hospital stay for further management and monitoring of NSTEMI and CHF, heparin drip Time Spent With Patient Time: Total time managing care of this patient today ____ minutes. Quality Stroke Does the patient have a stroke diagnosis?: No VTE Prior VTE?: No VTE Risk Level:: Medical - moderate - high VTE Device Contraindication: Treatment Not Indicated VTE Drug Contraindication: N/A - Med Ordered
[2022-10-24 17:07] LABS: PTT Heparin Drip 33.8 SEC (53-77.9)
[2022-10-24] MEDS: Donepezil HCl 10 MG TABLET PO (21:28)
[2022-10-24] MEDS: Atorvastatin Calcium 40 MG TABLET PO (21:28)
[2022-10-24] MEDS: clonazePAM 0.5 MG TABLET 0.25 MG PO (21:28)
[2022-10-25] VITALS: BP 109/55; PULSE 65; RESP 16; TEMP 36.6; O2SAT 92
[2022-10-25 04:00] VITALS: BP 128/59; PULSE 68; RESP 16; TEMP 36.8; O2SAT 96
[2022-10-25] MEDS: Albuterol/Iprat 2.5/0.5MG 3 ML AMPUL.NEB INHALE (07:40)
[2022-10-25 07:41] VITALS: PULSE 70; RESP 18; O2SAT 93
[2022-10-25 08:00] VITALS: BP 123/57; PULSE 67; RESP 20; TEMP 36.5; O2SAT 93
[2022-10-25] MEDS: Psyllium seed 3.7 GM PACKET PO (09:34)
[2022-10-25] MEDS: Folic Acid 1 MG TABLET PO (09:34)
[2022-10-25] MEDS: Loratadine 10 MG TABLET PO (09:34)
[2022-10-25] MEDS: Furosemide 40 MG TABLET PO (09:34)
[2022-10-25] MEDS: 0.9 % Sodium Chloride Flush 3 ML SYRINGE IVFLUSH (09:34)
[2022-10-25] MEDS: Metoprolol Succinate ER 50 MG TAB.ER.24H PO (09:35)
[2022-10-25] MEDS: Aspirin Enteric Coated 81 MG TABLET.DR PO (09:35)
--- NOTE | 2022-10-25 09:46 | MHC.CM.PN ---
Per CAD DESIGNER DRAFTER, Patient is medically cleared for dc today. Patient will return to LTC @ [facility] today at 1PM, via [facility]. Last IMM addressed on 10/23/2022. LOBITO spoke with Sister/Lyly @ [phone] and informed her of the dc plan.
[2022-10-25 12:00] VITALS: BP 129/60; PULSE 67; RESP 20; TEMP 36.6; O2SAT 94
--- NOTE | 2022-10-25 12:02 | PM.DS ---
DS: Providers Provider Date of Service: 10/25/22 Date of admission: 10/22/22 02:21 Primary care physician: Edith Romo CNP Consults: 10/22/22 02:21 Consult to Cardiology Routine Consulting Provider: [facility] Reason for consultation: Acute CHF, NSTEMI Has provider been notified: No DS: Diagnosis Discharge Diagnosis (1) NSTEMI (non-ST elevated myocardial infarction): Status: Acute (2) Acute exacerbation of CHF (congestive heart failure): Status: Acute (3) Dementia: Status: Acute DS: Summary Hospital Course Hospital Course: HP as per admitting provider 87-year-old male with past medical history of dementia essential hypertension heart block cardiac pacemaker paroxysmal AFib history of subdural hematoma and cardiomyopathy, chronic hypoxic respiratory failure on 2 L of baseline oxygen comes into the hospital from [facility] with complaints of shortness of breath, cough. Patient had an x-ray done at [facility] which showed possible pneumonia, patient was started on p.o. antibiotics what he continued to have shortness of breath with O2 an 89-90% and increased cough therefore sent to the ED. Patient is very demented, poor historian, unable to give a good coherent history. On arrival to the ED patient hemodynamically stable will slightly elevated respiratory rate of 24 found to be hypoxic and now requiring 4 L of O2 satting 94% Labs are significant for WBC count of 8.6, BNP 680, troponin of 7295, patient is denying chest pain head but not sure how reliable patient is at this point. EKG shows AV dual paced rhythm with prolonged AV conduction, no significant ST T wave changes suggestive of ACS Chest x-ray shows thickening of the central bronchopulmonary interstitium which can be seen with pulmonary interstitial edema Patient will be admitted for further management 87-year-old man treated for acute on chronic respiratory failure secondary to acute systolic congestive heart failure. He was treated with IV Lasix and low-sodium diet. Echocardiogram showed EF of 10-15% with regional wall wall motion abnormalities consistent with ischemic cardiomyopathy. Was also found to have an NSTEMI and was treated with IV heparin. Due to his age and other comorbidities a more conservative medical therapy approach has been pursued. Is started on aspirin, Lasix. Plan is for patient to be transferred back to the [facility] for long-term care. Acute metabolic encephalopathy with underlying dementia. Likely secondary to hospital delirium and other acute medical issues. Frequent reorientation but patient seems to be at his baseline at this time. Dementia. Aricept Hypertension. Lisinopril. Due to low blood pressures. Continue valsartan Time Spent with Patient Time attestation: Total time managing care of this patient today ____ minutes. Discharge coordination time: Greater than 30 minutes Quality: Safe Use of Opioids Does Pt have an Active Cancer Diagnosis on the Problem List?: No Quality: Stroke Does the patient have a stroke diagnosis?: No Physical Exam Vital Signs: Vital Signs: Last Vital Signs Temp 97.7 F 10/25/22 08:00 Pulse 67 10/25/22 08:00 Resp 20 10/25/22 08:00 BP 123/57 L 10/25/22 08:00 Pulse Ox 93 10/25/22 08:00 O2 Del Method Nasal Cannula 10/25/22 08:00 O2 Flow Rate 2 10/25/22 08:00 Oxygen Flow Rate 3 10/21/22 23:03 BMI result Body Mass Index 31.1 Appearing in no acute distress head is normocephalic atraumatic eyes pupils are PERRLA sclera is anicteric mouth throat mucous membranes are intact and moist neck is supple no lymphadenopathy, no JVD noted lung sounds are clear to auscultation heart regular rate rhythm, clear S1, S2 positive bowel sounds, abdomen is soft, nontender neuro patient is confused DS: Data Data Completed and Pending Labs on day of discharge: Laboratory Results - last 24 hr 10/24/22 16:28 aPTT Heparin Protocol 33.8 L D Preliminary micro results at discharge 10/21/22 23:09 Blood Culture - Preliminary Blood - Venous No growth after 48 hours. 10/21/22 23:09 Blood Culture - Preliminary Blood - Venous No growth after 48 hours. Discharge Plan Discharge Anticipated Discharge Date/Time: 10/25/22 11:55 Patient Disposition: Xfer LTC Discharge Diagnosis: Acute on chronic hypoxemic respiratory failure Acute systolic congestive heart failure NSTEMI Acute metabolic encephalopathy Referrals: [facility] [Outside] - 1 Week Edith Romo CNP [Primary Care Provider] - 1 Week Discharge Medications: New furosemide 40 mg Tablet 40 mg PO DAILY Qty: 30 0RF Protocol: Hold for SBP< HOLD for SBP < : 90 aspirin 81 mg Tablet,Delayed Release (Dr/Ec) 81 mg PO DAILY Qty: 30 0RF Continued acetaminophen 325 mg Tablet 650 mg PO Q4H PRN (Reason: pain/fever) ipratropium-albuterol 0.5 mg-3 mg(2.5 mg base)/3 mL Solution For Nebulization 3 ml INHALATION BID Rx Instructions: x7 days, finish 10/27/22 clonazepam 0.5 mg Tablet 0.25 mg PO BEDTIME Rx Instructions: administer 30 minutes before bedtime folic acid 1 mg Tablet 1 mg PO DAILY loratadine 10 mg Tablet 10 mg PO DAILY Metamucil 3.4 gram/5.4 gram Powder 1 tbsp PO DAILY Rx Instructions: mix into at least 8 oz of water or juice before administering cholecalciferol (vitamin D3) 50 mcg (2,000 unit) capsule 50 mcg PO DAILY donepezil 10 mg tablet 10 mg PO BEDTIME metoprolol succinate 50 mg tablet extended release 24 hr 50 mg PO DAILY atorvastatin 10 mg tablet 10 mg PO BEDTIME Discontinued doxycycline hyclate [Doxy] 100 mg Tablet 100 mg PO BID Rx Instructions: x 5 days, finished 10/25/22 amoxicillin-pot clavulanate [Augmentin] 875-125 mg Tablet 1 tab PO BID Rx Instructions: x 5 days, finish 10/25/22 lisinopril 40 mg tablet 40 mg PO DAILY Discharge Orders: Discharge Order (Routine); Ordered 10/25/22 Ordered By: Donna Michel Diet: Advance to usual diet Activity on Discharge: As tolerated Stand Alone Forms: Patient Portal Discharge page Care Plan Goals: Complete resolution of symptoms Health Concerns: Acute on chronic hypoxemic respiratory failure Acute systolic congestive heart failure NSTEMI Acute metabolic encephalopathy Plan of Treatment: Follow-up with primary care provider as needed Take all medications as prescribed Assessment: See discharge summary
--- NOTE | 2022-10-25 12:06 | MHC.CM.PN ---
LOBITO has successfully faxed the dc summary to Blake (Nurses at [facility]),per their request @ [phone].
== END 2022-10-25 15:22 | DRG 280 ==
LOC: HO.ED 23:20 → HO.EDOVER 10-22 02:31 → HO.IMC 10-22 19:34
PROVIDERS: Physician Assistant Medical; Admitting Provider Internal Medicine; Emergency Provider Internal Medicine; PCP Nurse Practitioner Acute Care; Visit Provider Nurse Practitioner Acute Care
DX: I11.0 Hypertensive heart disease with heart failure (principal); G93.41 Metabolic encephalopathy; I21.4 Non-ST elevation (NSTEMI) myocardial infarction; I50.21 Acute systolic (congestive) heart failure; J96.21 Acute and chronic respiratory failure with hypoxia; I50.23 Acute on chronic systolic (congestive) heart failure; F05 Delirium due to known physiological condition; F03.90 Unspecified dementia, unspecified severity, without behavioral disturbance, psychotic disturbance, mood disturbance, and anxiety; I25.5 Ischemic cardiomyopathy; I25.10 Atherosclerotic heart disease of native coronary artery without angina pectoris; I44.1 Atrioventricular block, second degree; Z20.822 Contact with and (suspected) exposure to COVID-19; Z95.0 Presence of cardiac pacemaker; Z99.81 Dependence on supplemental oxygen; Z87.891 Personal history of nicotine dependence; Z79.82 Long term (current) use of aspirin; Z79.899 Other long term (current) drug therapy
CPT/HCPCS: 0241U; 36415; 71045; 80048; 80053; 81003; 83605; 83735; 83880; 84146; 84484; 85025; 85027; 85610; 85730; 87040; 93005; 93306; 94640; 99285; J0696; J1643; J1940; Q9957

== ENCOUNTER → 2022-10-22 02:21 | Outpatient (BNV) | payer MEDICARE, SELFPAY | PROVIDERS: Admitting Provider Internal Medicine; Emergency Provider Internal Medicine; PCP Nurse Practitioner Acute Care; Visit Provider Internal Medicine | DX: I21.4 Non-ST elevation (NSTEMI) myocardial infarction (principal); I50.23 Acute on chronic systolic (congestive) heart failure; F03.90 Unspecified dementia, unspecified severity, without behavioral disturbance, psychotic disturbance, mood disturbance, and anxiety | CPT/HCPCS: 99223; 99233; 99239; 99499 ==

== ENCOUNTER → 2022-10-22 02:21 | Outpatient (BNV) | payer MEDICARE, SELFPAY | PROVIDERS: Admitting Provider Internal Medicine; Emergency Provider Internal Medicine; PCP Nurse Practitioner Acute Care; Visit Provider Internal Medicine Cardiovascular Disease | DX: I50.23 Acute on chronic systolic (congestive) heart failure (principal); I21.4 Non-ST elevation (NSTEMI) myocardial infarction; I35.2 Nonrheumatic aortic (valve) stenosis with insufficiency | CPT/HCPCS: 93306; 99222; 99233 ==

== ENCOUNTER → 2022-11-15 23:59 | Outpatient (BNV) | payer MEDICARE, SELFPAY ==
--- NOTE | 2022-11-21 13:13 | MHC.OFFVIS ---
Intake Intake Visit Reasons: Remote Device Check- Biotronik Allergies No Known Allergies [No Known Allergies*] Allergy (Verified 05/10/22 12:58) [facility] Medical History Subdural hematoma Dementia Cardiomyopathy Heart block Essential hypertension PAF (paroxysmal atrial fibrillation) Normally functioning cardiac pacemaker present Surgical History History of permanent cardiac pacemaker placement (~04/2019) Family History Father No problems noted. Mother No problems noted. 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 Overall normal device function. [id number] Cardiac Device Interrogation, pacemaker Procedure code (CPT) selection complete Assessment & Plan Assessment & Plan (1) PAF (paroxysmal atrial fibrillation): Code(s): I48.0 - Paroxysmal atrial fibrillation Coding Level of Care Code Procedure Only Diagnoses PAF (paroxysmal atrial fibrillation) I48.0 CPT Codes Cardiac Device Check - Cardiac Device 12: [id number] Cardiac Device Interrogation, pacemaker ([id number])
== END ==
PROVIDERS: PCP Nurse Practitioner Acute Care; Visit Provider Internal Medicine
DX: I48.0 Paroxysmal atrial fibrillation (principal); Z95.0 Presence of cardiac pacemaker
CPT/HCPCS: 93294

== ENCOUNTER 2023-04-19 05:33 | Outpatient (REF) | payer MEDICARE, SELFPAY ==
[2023-04-19 06:04] LABS: Anion Gap 10 (12-20); Blood Urea Nitrogen 23 mg/dL (9-16); Calcium 8.9 mg/dL (8.4-10.2); Carbon Dioxide 26 mmol/L (22-29); Chloride 110 mmol/L (96-108); Estimated Glomerular Filt Rate > 60; Glucose Fasting 94 mg/dL (60-99); Sodium 142 mmol/L (135-145)
== END 2023-04-19 05:34 | disposition home or self-care (01) ==
LOC: HO.HSH3N 05:33
PROVIDERS: Visit Provider Nurse Practitioner Acute Care
DX: I48.91 Unspecified atrial fibrillation (principal); I10 Essential (primary) hypertension
CPT/HCPCS: 36415; 80048

== ENCOUNTER 2023-05-09 11:42 | Outpatient (AMB) | payer MEDICARE, SELFPAY ==
[2023-05-09 12:38] VITALS: BP 94/42; PULSE 65; BMI 28.1
--- NOTE | 2023-05-09 12:38 | MHC.OFFVIS ---
Intake Vital Signs 05/09/23 12:38 Height 5 ft 9 in Weight 190 lb 7.67 oz BMI 28.1 BP 94/42 L Blood Pressure Location Lt brachial Position Sitting Pulse 65 Intake Visit Reasons: 1 yr f/up w/ biotronic Intake Note: 1 year follow up w/ device check [employer] Required: No Accompanied by: Employee Allergies No Known Allergies [No Known Allergies*] Allergy (Verified 05/09/23 12:39) Medication List - Last Reviewed 05/09/23 by Mary [place] acetaminophen 650 mg PO Q4H PRN aspirin 81 mg PO DAILY atorvastatin 10 mg PO BEDTIME cholecalciferol (vitamin D3) 50 mcg PO DAILY clonazepam 0.25 mg PO BEDTIME donepezil 10 mg PO BEDTIME folic acid 1 mg PO DAILY furosemide 40 mg See Protocol PO DAILY ipratropium-albuterol 0.5 mg-3 mg(2.5 mg base)/3 mL 3 mL inhalation BID loratadine 10 mg PO DAILY metoprolol succinate ER 25 mg PO DAILY psyllium husk (Metamucil) 1 tbsp PO DAILY HPI HPI Comments History of Present Illness Details Demario returns for follow-up. To recall, he underwent pacemaker placement in 2019 for second-degree heart block. He also has a history of paroxysmal atrial fibrillation. He had a subdural hematoma in the past after which Eliquis was stopped. Last year, he was admitted for congestive heart failure/respiratory failure in that context, diagnosed to have non ST elevation myocardial infarction. LVEF was severely reduced. However, because of dementia planned to have only conservative care. Overall, he states he feels fine. The water gas operator who came with him also states that he is generally doing okay. Significant dementia at baseline. [facility] Medical History NSTEMI (non-ST elevated myocardial infarction) Subdural hematoma Dementia Cardiomyopathy Heart block Essential hypertension PAF (paroxysmal atrial fibrillation) Normally functioning cardiac pacemaker present Surgical History History of permanent cardiac pacemaker placement (~04/2019) Family History Father No problems noted. Mother No problems noted. Social History Household Members: None Housing: Other Do you presently have visiting nurse or other home services: No Alcohol intake: never Patient Tobacco Use Status: Former Tobacco user service: Yes Review of Systems Const Denies weakness ENT Denies dizziness Card Denies chest pain, Denies chest pain with activity, Denies syncope, Denies rapid heart rate, Denies pedal edema, Denies edema, Denies leg edema, Denies lightheadedness, Denies palpitations, Denies dyspnea on exertion and Denies orthopnea Resp Denies cough and Denies dyspnea on exertion GI Denies hematochezia and Denies change in stool character Musc Denies abnormal gait, Denies muscle cramps, Denies muscle weakness, Denies numbness, Denies radiating pain into limb and Denies tingling Neuro Denies abnormal gait, Denies dizziness, Denies syncope, Denies numbness, Denies tingling and Denies weakness Endo Denies palpitations Physical Exam Vital Signs: Last Vital Signs Pulse 65 05/09/23 12:38 BP 94/42 L 05/09/23 12:38 BMI result Body Mass Index 28.1 Const General: comfortable and no acute distress Orientation/consciousness: No patient oriented x3 HEENT Other: Unremarkable Head: Yes normal to inspection Neck Neck: Yes normal visual inspection Chest Chest palpation & inspection: normal inspection of the chest Resp Auscultation: clear to auscultation bilaterally Cardio Palpation: normal PMI Heart sounds: S1 normal heart sound present, S2 normal heart sound present, no gallops, Murmur heart sound present systolic II/ and at the right sternal border and no rubs GI Palpation (GI): Soft to palpation Back/Spine/Pelvis Other: unremarkable Skin General skin exam: no rashes or lesions noted Neuro General: No patient oriented x3 Extrem General: Yes normal to inspection Psych Mental Status: mental status grossly abnormal Office Procedures Cardiac Device Check Cardiac Device Check Details: Pacemaker interrogated today. Dual-chamber device, programmed DDD-CLS mode. Battery status 4 years and 4 months. Atrial pacing 95%. Ventricular pacing 99%. No significant arrhythmias. No alerts. Overall, normal device function. [id number] Cardiac Device Check, pacemaker dual lead Procedure code (CPT) selection complete Assessment & Plan Assessment & Plan (1) Atherosclerotic cardiovascular disease: Code(s): I25.10 - Atherosclerotic heart disease of [place] coronary artery without angina pectoris Plan: NSTEMI last year with troponin peaking at around 7300. Based on dementia, conservative care only. Continue aspirin, beta-blockers, statins. (2) PAF (paroxysmal atrial fibrillation): Code(s): I48.0 - Paroxysmal atrial fibrillation Plan: No recent issues. In the past, was on Eliquis but that was stopped because of subdural hematoma. (3) Cardiomyopathy: Code(s): I42.9 - Cardiomyopathy, unspecified Plan: In the past, ejection fraction was in the 40s. After the more recent NSTEMI, it is in the 10-15% range. Clinically, no evidence of decompensated heart failure. With his age and dementia, not suitable for any aggressive care. Also blood pressure is quite low and hence not suitable for Entresto or VICKY inhibitors or ARB. (4) Non-rheumatic aortic stenosis: Code(s): I35.0 - Nonrheumatic aortic (valve) stenosis Plan: [id number] aortic stenosis on the last echocardiogram. Not suitable for anything invasive even if it progresses to severe. (5) Essential hypertension: Code(s): I10 - Essential (primary) hypertension Plan: Seems low today. May monitor for now. (6) Dementia: Code(s): F03.90 - Unspecified dementia, unspecified severity, without behavioral disturbance, psychotic disturbance, mood disturbance, and anxiety Plan: Progressive, moderate dementia, per accompanying documentation. Hence cardiac care is going to be conservative. Plan Discussed with person who accompanied him from [facility]. Coding Level of Care Code Est Pt Level 4 (23844) Diagnoses Atherosclerotic cardiovascular disease I25.10 PAF (paroxysmal atrial fibrillation) I48.0 Cardiomyopathy I42.9 Non-rheumatic aortic stenosis I35.0 Essential hypertension I10 Dementia F03.90 CPT Codes Cardiac Device Check - Cardiac Device 2: [id number] Cardiac Device Check, pacemaker dual lead ([id number])
== END 2023-05-09 13:08 | disposition home or self-care (01) ==
PROVIDERS: PCP Nurse Practitioner Acute Care; Visit Provider Internal Medicine
DX: I25.10 Atherosclerotic heart disease of native coronary artery without angina pectoris (principal); I48.0 Paroxysmal atrial fibrillation; I42.9 Cardiomyopathy, unspecified; I35.0 Nonrheumatic aortic (valve) stenosis; I10 Essential (primary) hypertension; F03.90 Unspecified dementia, unspecified severity, without behavioral disturbance, psychotic disturbance, mood disturbance, and anxiety
CPT/HCPCS: 93280; 99214

== ENCOUNTER → 2023-05-09 11:42 | Outpatient (BNVA) | payer OTHER, MEDICARE, SELFPAY | PROVIDERS: Visit Provider Internal Medicine | DX: Z45.018 Encounter for adjustment and management of other part of cardiac pacemaker (principal); I25.10 Atherosclerotic heart disease of native coronary artery without angina pectoris; I48.0 Paroxysmal atrial fibrillation; I42.9 Cardiomyopathy, unspecified; I35.0 Nonrheumatic aortic (valve) stenosis; I10 Essential (primary) hypertension; F03.90 Unspecified dementia, unspecified severity, without behavioral disturbance, psychotic disturbance, mood disturbance, and anxiety | CPT/HCPCS: 93280; 99212 ==

== ENCOUNTER → 2023-05-10 23:59 | Outpatient (BNV) | payer MEDICARE, SELFPAY ==
--- NOTE | 2023-05-19 12:51 | MHC.OFFVIS ---
Intake Intake Visit Reasons: Remote Device Check- Biotronik Allergies No Known Allergies [No Known Allergies*] Allergy (Verified 05/09/23 12:39) [facility] Medical History NSTEMI (non-ST elevated myocardial infarction) Subdural hematoma Dementia Cardiomyopathy Heart block Essential hypertension PAF (paroxysmal atrial fibrillation) Normally functioning cardiac pacemaker present Surgical History History of permanent cardiac pacemaker placement (~04/2019) Family History Father No problems noted. Mother No problems noted. Social History Household Members: None Housing: Other Do you presently have visiting nurse or other home services: No Alcohol intake: never Patient Tobacco Use Status: Former Tobacco user service: Yes Office Procedures Cardiac Device Check Cardiac Device Check Details: Date of service- 05/12/2023 ; Battery life 60%; normal lead parameters; no significant arrhythmias. Overall normal device function. [id number] Cardiac Device Interrogation, pacemaker Procedure code (CPT) selection complete Assessment & Plan Assessment & Plan (1) Heart block: Code(s): I45.9 - Conduction disorder, unspecified Plan x Coding Level of Care Code Procedure Only Diagnoses Heart block I45.9 CPT Codes Cardiac Device Check - Cardiac Device 12: [id number] Cardiac Device Interrogation, pacemaker ([id number])
== END ==
PROVIDERS: PCP Nurse Practitioner Acute Care; Visit Provider Internal Medicine
DX: I45.9 Conduction disorder, unspecified (principal); Z95.0 Presence of cardiac pacemaker
CPT/HCPCS: 93294

== ENCOUNTER 2023-06-10 05:47 | Emergency (ER) | payer OTHER, MEDICARE, SELFPAY ==
[2023-06-10] VITALS (9 sets, daily range): BP systolic 96–183; BP diastolic 50–117; PULSE 76–88; RESP 17–31; TEMP -17.7–36.6; O2SAT 87–95; BMI 29.9
--- NOTE | ~2023-06-10 | XR_ITS ---
EXAMINATION: XR CHEST CLINICAL INFORMATION: Shortness of breath. COMPARISON: Chest radiograph 10/21/2022. TECHNIQUE: Frontal view of the chest was obtained. FINDINGS: Left-sided pacer with leads projecting over the right atrium and right ventricle. Stable prominence of the cardiomediastinal silhouette. Worsening pulmonary aeration compared to 10/21/2022 with increased interstitial thickening and increased bibasilar patchy airspace opacities. Suspect trace bilateral pleural effusions. No pneumothorax. No acute osseous findings. XR/XR chest 1V IMPRESSION: Findings are suggestive of an atypical infectious/inflammatory processes with early infiltrates in the lower lungs. A component of pulmonary edema is not excluded. Recommend clinical correlation and short-term follow-up.
--- NOTE | 2023-06-10 06:01 | ECG_ITS ---
Test Reason : SHORTNESS OF BREATH Blood Pressure : / mmHG Vent. Rate : 096 BPM Atrial Rate : 100 BPM P-R Int : 000 ms QRS Dur : 168 ms QT Int : 418 ms P-R-T Axes : 000 -43 113 degrees QTc Int : 528 ms Poor data quality Ventricular-paced rhythm with occasional AV dual-paced complexes and with premature ventricular or aberrantly conducted complexes Abnormal ECG When compared with ECG of 21-OCT-2022 22:52, Vent. rate has increased BY 18 BPM Poor data quality in current ECG precludes serial comparison Referred By: Flip Hirsch Electronically Signed By:MONSTER DIGGS MD
--- NOTE | 2023-06-10 06:01 | ED.GENADULT ---
HPI - General Adult General Chief complaint: Dyspnea Stated complaint: Diff breathing Time Seen by Provider: 06/10/23 06:00 History of Present Illness HPI narrative: The patient is an 87-year-old male who lives at the [facility]. He has a MOLST form which indicates that he is DNR/DNI. It also indicates that he should not receive noninvasive ventilation and that he should not be transferred to the hospital except for comfort. Today he apparently became quite short of breath at the [facility] and requested that he be brought to the hospital. Staff at the [facility] felt that he would crackles and administered furosemide at the [facility] prior to transport. Additional information was obtained from the [facility]. [facility] after having had a large myocardial infarction which left him with an ejection fraction of 10-15%. At that point the patient was placed on hospice and has been on hospice at the [facility] for approximately 6 months. The hospice agency is the [facility] service. Staff at the [facility] also told me that the patient has fairly significant dementia. I spoke to the patient's sister who is also his healthcare proxy and was the Signer of the patient's MOLST form. The patient's MOLST form was signed on 10/28/2022 and this indicates the patient is DNR/DNI/do not use noninvasive ventilation/do not transferred to hospital unless needed for comfort. The patient's sister and healthcare proxy indicate that the goal for this patient's care is comfort rather than an attempt at reversing his illness. The patient is not able to answer questions regarding this topic. Related Data Home Medications ?Medication ?Instructions ?Recorded ?Confirmed cholecalciferol (vitamin D3) 50 50 mcg PO DAILY 05/12/20 05/09/23 mcg (2,000 unit) capsule donepezil 10 mg tablet 10 mg PO BEDTIME 05/12/20 05/09/23 atorvastatin 10 mg tablet 10 mg PO BEDTIME 05/10/22 05/09/23 acetaminophen 325 mg tablet 650 mg PO Q4H PRN pain/fever 10/21/22 05/09/23 clonazepam 0.5 mg tablet 0.25 mg PO BEDTIME 10/21/22 05/09/23 folic acid 1 mg tablet 1 mg PO DAILY 10/21/22 05/09/23 ipratropium 0.5 mg-albuterol 3 mg 3 ml inhalation BID 10/21/22 05/09/23 (2.5 mg base)/3 mL nebulization soln loratadine 10 mg tablet 10 mg PO DAILY 10/21/22 05/09/23 psyllium husk 3.4 gram/5.4 gram 1 tbsp PO DAILY 10/21/22 05/09/23 oral powder (Metamucil) metoprolol succinate 25 mg 25 mg PO DAILY 05/09/23 tablet,extended release 24 hr Previous Rx's ?Medication ?Instructions ?Recorded aspirin 81 mg tablet,delayed 81 mg PO DAILY #30 tabs 10/25/22 release furosemide 40 mg tablet 40 mg PO DAILY #30 tabs 10/25/22 Allergies Allergy/AdvReac Type Severity Reaction Status Date / Time No Known Allergies Allergy Verified 06/10/23 06:05 [No Known Allergies*] Review of Systems Review of Systems: Yes all other systems are reviewed and are negative [facility] Past Medical History Medical History NSTEMI (non-ST elevated myocardial infarction) Subdural hematoma Dementia Cardiomyopathy Heart block Essential hypertension PAF (paroxysmal atrial fibrillation) Normally functioning cardiac pacemaker present Surgical History History of permanent cardiac pacemaker placement (~04/2019) Family History Family History Father No problems noted. Mother No problems noted. Social History Social History Household Members: None Housing: Other Do you presently have visiting nurse or other home services: No Alcohol intake: never Patient Tobacco Use Status: Former Tobacco user Advance Directives: No Advance Directives Information Provided: No service: Yes Physical Exam ED Vital Signs: Vital Signs - 24 hr 06/10/23 06:00 06/10/23 06:15 06/10/23 06:16 Temperature 97.8 F Pulse Rate 88 88 Respiratory Rate 18 31 H 22 H Blood Pressure 183/117 H 183/117 H Pulse Oximetry 94 94 Oxygen Delivery Method Non-Rebreather Mask Room Air Non-Rebreather Mask Oxygen Flow Rate 15 Fraction of Inspired Oxygen 06/10/23 06:39 06/10/23 08:00 06/10/23 08:10 Temperature Pulse Rate 80 78 Respiratory Rate 22 H 17 22 H Blood Pressure 124/68 99/50 L Pulse Oximetry 87 L 92 Oxygen Delivery Method BiPAP BiPAP Oxygen Flow Rate Fraction of Inspired Oxygen 40 BMI result Body Mass Index 29.9 Const Other: The patient was in significant respiratory distress and was not able to speak. HENMT Other: Face was symmetrical. Airway was clear Eyes Other: Pupils round equal, conjunctivae clear Neck Other: No obviously distended neck veins Resp Other: There was increased work of breathing and diffuse coarse crackles throughout all lung hayes. Cardio Rate: regular rate Rhythm: regular rhythm Heart sounds: S1 normal heart sound present and S2 normal heart sound present GI Other: No obvious abdominal tenderness Skin Other: Skin was pale and sweaty Neuro Other: The patient seemed awake but in significant respiratory difficulty. He was not able to speak. He seemed diffusely weak. Extrem Other: Mild edema both lower leg Medications Administered Discontinued Medications Generic Name Dose Route Start Last Admin Trade Name Freq PRN Reason Stop Dose Admin Nitroglycerin 1 inch 06/10/23 06:00 06/10/23 06:08 Nitroglycerin 2 % Oint 1 Gm Packet TRANSDERMA 06/10/23 06:01 1 inch ONCE ONE Administration Medical Decision Making Medical Decision Making [facility] Narrative: The patient is an 87-year-old male who presented in acute respiratory distress. He was hypertensive and had crackles. His presentation was consistent with acute congestive heart failure or pulmonary edema. The patient was placed on BiPAP and was given nitro paste for his high blood pressure. His respiratory distress seemed significantly less. Afterwards I was able to establish that he is on hospice. I spoke to his sister who is his healthcare proxy. She confirms that the goal of care is comfort rather than an attempt at reversing his illness. I also spoke to a nursing supervisor transferring and boxing at the [facility] who confirms that the patient has significant dementia as well as his severe heart disease. The nursing supervisor transferring and boxing also confirms that the understood goal for the patient has been comfort. At this point the patient is still on BiPAP. Since it is established that the goal of care for this patient is comfort I think we mom BiPAP until we get additional guidance and recommendations from his hospice agency. I believe a nurse from the hospice agency will be coming to the emergency room. Case management was consulted in the emergency room. The upper caser spoke to [facility]. [facility] I was asked to reinforce in my discharge instructions the plans for the patient has morphine and lorazepam dosing. The patient will be given a dose of morphine and lorazepam here prior to returning to the [facility] by ambulance. Lab Data 06/10/23 06:11 06/10/23 06:11 Labs: Lab Results 06/10/23 06/10/23 Range/Units 06:11 07:23 WBC 11.4 H (4.8-10.8) X10*3/uL RBC 5.09 D (4.60-5.80) X10*6/uL Hgb 15.9 D (14.0-18.0) g/dl Hct 48.5 D (42.0-52.0) % MCV 95.3 (80.0-98.0) fL MCH 31.2 (27.0-33.0) pg MCHC 32.8 (31.0-36.0) g/dl RDW 14.1 (11.0-16.0) % Plt Count 209 (160-400) X10*3/uL MPV 10.9 (9.4-12.4) fL Immature Gran % (Auto) 0.3 (0.0-0.4) % Neut % (Auto) 50.0 (45-73) % Lymph % (Auto) 38.2 (20-40) % Antelope % (Auto) 5.6 (2-11) % Eos % (Auto) 4.6 H (0-4) % Baso % (Auto) 1.3 (0-2) % Lymph # (Auto) 4.4 (1.2-4.9) X10*3/uL Antelope # (Auto) 0.6 (0.1-1.2) X10*3/uL Eos # (Auto) 0.5 H (0.0-0.4) X10*3/uL Baso # (Auto) 0.2 (0.0-0.2) X10*3/uL Abs Immat Gran (auto) 0.03 (0.00-0.03) X10*3/uL Absolute Neuts (auto) 5.7 (2.0-8.3) x10*3/uL Absolute Nucleated RBC 0.000 (0.0-0.012) X10*3/uL Nucleated RBC % (auto) 0.0 (0.0-0.2) /100WBC PT 13.2 (11.1-13.3) SEC INR 1.1 (0.9-1.1) VBG pH 7.31 L (7.32-7.43) VBG pCO2 46 mmHg VBG pO2 49 mmHg VBG HCO3 24 (22-26) mmol/L VBG O2 Saturation 73.0 % VBG Base Excess -2.3 mmol/L Sodium 144 (135-145) mmol/L Potassium 4.7 (3.3-5.1) mmol/L Chloride 111 H (96-108) mmol/L Carbon Dioxide 20 L (22-29) mmol/L Anion Gap 18 (12-20) BUN 24 H (9-16) mg/dL Creatinine 1.45 H (0.5-1.4) mg/dL Estim Creat Clear Calc 38.4 Estimated GFR 46 Random Glucose 214 H (60-115) mg/dL Calcium 9.0 (8.4-10.2) mg/dL Magnesium 2.4 (1.6-2.6) mg/dL Total Bilirubin 1.1 H (0.0-1.0) mg/dL Direct Bilirubin 0.3 (0.0-0.5) mg/dL AST 32 (5-37) U/L ALT 22 (0-40) U/L Alkaline Phosphatase 101 (39-117) U/L Troponin I High Sens 78.1 H D (<3.5-35.0) ng/L B-Natriuretic Peptide 1384 H (<100) pg/mL Total Protein 7.8 (6.5-8.0) g/dL Albumin 4.0 (3.5-5.0) g/dL Influenza Type A (PCR) NEGATIVE (Negative) Influenza Type B (PCR) NEGATIVE (Negative) RSV RNA Qual (PCR) NEGATIVE (Negative) SARS-CoV-2 RNA (RT-PCR) NEGATIVE (Negative) Discharge Plan Discharge Clinical Impression: Shortness of breath, Pulmonary edema, Ischemic cardiomyopathy, Dementia, Hospice care patient Patient Disposition: Xfer LTC Additional Instructions: We have confirmed that the patient is a hospice patient and we have confirmed that the goals of care are comfort. According to the patient's hospice agency the patient should be getting: Morphine: 10 mg of oral liquid morphine every 4 hours on a scheduled basis. In addition to the scheduled morphine the patient may also receive 10 mg of liquid morphine every 1 hour as needed for shortness of breath or discomfort. Lorazepam: 0.5 mg of oral liquid lorazepam every 4 hours as needed for anxiety. Prescriptions: No Action acetaminophen 325 mg Tablet 650 mg PO Q4H PRN (Reason: pain/fever) ipratropium-albuterol 0.5 mg-3 mg(2.5 mg base)/3 mL Solution For Nebulization 3 ml INHALATION BID Rx Instructions: x7 days, finish 10/27/22 clonazepam 0.5 mg Tablet 0.25 mg PO BEDTIME Rx Instructions: administer 30 minutes before bedtime folic acid 1 mg Tablet 1 mg PO DAILY loratadine 10 mg Tablet 10 mg PO DAILY Metamucil 3.4 gram/5.4 gram Powder 1 tbsp PO DAILY Rx Instructions: mix into at least 8 oz of water or juice before administering furosemide 40 mg Tablet 40 mg PO DAILY Qty: 30 0RF Protocol: Hold for SBP< HOLD for SBP < : 90 aspirin 81 mg Tablet,Delayed Release (Dr/Ec) 81 mg PO DAILY Qty: 30 0RF cholecalciferol (vitamin D3) 50 mcg (2,000 unit) capsule 50 mcg PO DAILY donepezil 10 mg tablet 10 mg PO BEDTIME atorvastatin 10 mg tablet 10 mg PO BEDTIME metoprolol succinate 25 mg tablet extended release 24 hr 25 mg PO DAILY Referrals: [facility] [Outside] (Hospice care) Print Language: Lebanese
[2023-06-10] MEDS: Nitroglycerin 2 % Oint 1 GM Packet 1 INCH TRANSDERMA (06:08)
[2023-06-10 06:18] LABS: MANUAL DIFF FLAG NO
[2023-06-10 06:23] LABS: Basophils Absolute Auto 0.2 X10*3/uL (0.0-0.2); Basophils Percent Auto 1.3 % (0-2); Eosinophils Absolute Auto 0.5 X10*3/uL (0.0-0.4); Eosinophils Percent Auto 4.6 % (0-4); Hematocrit 48.5 % (42.0-52.0); Hemoglobin 15.9 g/dl (14.0-18.0); Imm Gran Abs Auto 0.03 X10*3/uL (0.00-0.03); Imm Gran Pct Auto 0.3 % (0.0-0.4); Lymphocytes Absolute Auto 4.4 X10*3/uL (1.2-4.9); Lymphocytes Percent Auto 38.2 % (20-40); Mean Corpuscular HGB Conc 32.8 g/dl (31.0-36.0); Mean Corpuscular Hemoglobin 31.2 pg (27.0-33.0); Mean Corpuscular Volume 95.3 fL (80.0-98.0); Mean Platelet Volume 10.9 fL (9.4-12.4); Monocytes Absolute Auto 0.6 X10*3/uL (0.1-1.2); Monocytes Percent Auto 5.6 % (2-11); Neutrophils Absolute Auto 5.7 x10*3/uL (2.0-8.3); Platelet Count 209 X10*3/uL (160-400); Red Blood Count 5.09 X10*6/uL (4.60-5.80); Red Cell Distribution Width 14.1 % (11.0-16.0); White Blood Count 11.4 X10*3/uL (4.8-10.8)
[2023-06-10 06:27] LABS: INTERNATIONAL NORM RATIO 1.1 (0.9-1.1); Prothrombin Time 13.2 SEC (11.1-13.3)
--- NOTE | 2023-06-10 06:32 | PC.RT ---
Addendum entered by Luke Palencia, RT 06/10/23 06:59: This entry was written by Harvey Linton. Original Note: Placed pt on Bipap per MD; pt norma well
[2023-06-10 06:40] LABS: Alanine Aminotransferase 22 U/L (0-40); Alkaline Phosphatase 101 U/L (39-117); Anion Gap 18 (12-20); Aspartate Amino Transferase 32 U/L (5-37); Bilirubin Direct 0.3 mg/dL (0.0-0.5); Bilirubin Total 1.1 mg/dL (0.0-1.0); Blood Urea Nitrogen 24 mg/dL (9-16); Carbon Dioxide 20 mmol/L (22-29); Chloride 111 mmol/L (96-108); Creatinine Clr Calc Pharmacy 38.4; Estimated Glomerular Filt Rate 46; Glucose Random 214 mg/dL (60-115); Magnesium 2.4 mg/dL (1.6-2.6); Potassium 4.7 mmol/L (3.3-5.1); Sodium 144 mmol/L (135-145); Total Protein 7.8 g/dL (6.5-8.0)
[2023-06-10 06:41] LABS: Troponin-I High Sensitivity 78.1 ng/L (<3.5-35.0)
[2023-06-10 06:42] LABS: B Type Natriuretic Peptide 1384 pg/mL (<100)
[2023-06-10 06:56] LABS: Influenza A PCR NEGATIVE (Negative); Influenza B PCR NEGATIVE (Negative); Resp Syncy Virus RNA Qual PCR NEGATIVE (Negative); SARS COV2 PCR INHOUSE NEGATIVE (Negative)
--- NOTE | 2023-06-10 07:17 | PC.NURSE ---
Assumed care of patient at 0700, patient alert to stimuli with head nod and one word answers.skin WPD, Patient on bipap, currently satting at 92%, respirations even and unlabored, wheezes auscultated throughout. Slight BLE edema noted, no apparent distress, patient resting quietly, will continue to observe.
[2023-06-10 07:29] LABS: VBG Base Excess -2.3 mmol/L; VBG HCO3 24 mmol/L (22-26); VBG pCO2 46 mmHg; VBG pH 7.31 (7.32-7.43); VBG pO2 49 mmHg
[2023-06-10 07:33] LABS: Venous Blood Gas Refer to POC result
--- NOTE | 2023-06-10 07:33 | PC.NURSE ---
patient satting low 80's, per Dr. Castelan, no action, keep patient comfortable at this time. order for comfort measures in place.
--- NOTE | 2023-06-10 08:48 | PC.NURSE ---
0825: b/p 93/50 0841: b/p 91/47. Tor made aware, remove nitro paste per MD. pt resting comfortably at this time.
--- NOTE | 2023-06-10 09:27 | MHC.CM.ED ---
Addendum entered by Verna Lynch 06/10/23 10:06: Patient will return to [facility] via BLS at 1030am. Original Note: Received case management consult from Dr Hirsch. Patient is a LTC resident of [facility]. Patient has been active with [facility] for about 6 months. Patient came to the ER due to increasing shortness of breath that facility felt they couldn't keep patient comfortable. Patient is currently on Bipap. Dr Hirsch spoke with patient's sister/HCP. She is not interested in keeping patient on bipap and would like patient to be comfort measures only. T/W spoke with Yoselin of [facility]. Yoselin is going to go to [facility] to make sure she will be there for patient when he is d/c'd from ER. She also wants to make sure [facility] has the necessary hospice meds. Yoselin has requested these meds be ordered: Oral Morphine 10mg PO every 4 hours scheduled around the clock, Oral Morphine 10mg PO every 1 hour PRN SOB/Pain, Ativan 0.5mg PO every [address] Hirsch aware and will order these medications. Patient will return to [facility] via BLS one Yoselin is able to verify patient can safely return. Continue to monitor for d/c needs.
--- NOTE | 2023-06-10 10:39 | PC.NURSE ---
report given to Naye GARZA at [facility] for patients return to facility.
--- NOTE | 2023-06-10 11:30 | PC.NURSE ---
resting on stretcher w/ eyes closed, skin pwd, resp even and non labored. appears comfortable. no groaning or grimacing noted. ativan and morphine held per Dr. Boles, pt comfortable for transport back to [facility]
== END 2023-06-10 11:33 ==
PROVIDERS: Emergency Provider Emergency Medicine; PCP Nurse Practitioner Acute Care
DX: R06.02 Shortness of breath (principal); I26.99 Other pulmonary embolism without acute cor pulmonale; I25.5 Ischemic cardiomyopathy; F03.90 Unspecified dementia, unspecified severity, without behavioral disturbance, psychotic disturbance, mood disturbance, and anxiety; Z51.5 Encounter for palliative care; Z11.52 Encounter for screening for COVID-19; Z20.828 Contact with and (suspected) exposure to other viral communicable diseases; I10 Essential (primary) hypertension; I48.0 Paroxysmal atrial fibrillation; Z87.891 Personal history of nicotine dependence; Z79.82 Long term (current) use of aspirin; Z79.02 Long term (current) use of antithrombotics/antiplatelets
CPT/HCPCS: 0241U; 36415; 71045; 80048; 80076; 82803; 83735; 83880; 84484; 85025; 85610; 93005; 99284; 99285

== ENCOUNTER → 2023-06-10 06:01 | Outpatient (BNV) | payer MEDICARE, SELFPAY | PROVIDERS: Emergency Provider Emergency Medicine; PCP Nurse Practitioner Acute Care; Visit Provider Internal Medicine Cardiovascular Disease | DX: I49.3 Ventricular premature depolarization (principal) | CPT/HCPCS: 93010 ==